=== PATIENT | male | born 1945 | race Hispanic/Latino ===

== ENCOUNTER 2017-09-21 18:24 | Inpatient (IN) | payer MEDICARE ==
[2017-09-21 18:57] LABS: #Basophils 0.1 thou/uL (0.0-0.2); #Eosinphils 0.2 thou/uL (0.0-0.7); #Lymphocytes 2.1 thou/uL (1.20-3.40); #Monocytes 0.7 thou/uL (0.11-0.59); #Neutrophils 6.3 thou/uL (1.40-6.50); %Basophils 0.6 % (0.0-1.0); %Eosinophils 1.7 % (0.0-10.0); %Lymphocytes 22.9 % (21.0-51.0); %Monocytes 7.7 % (0.0-10.0); %Neutrophils 67.2 % (42.0-75.0); Hemoglobin 13.2 g/dL (14.0-18.0); Mean Corpuscular HGB CONC 33.2 g/dL (32.0-36.0); Mean Corpuscular Hemoglobin 30.6 pg (27.0-31.0); Mean Corpuscular Volume 91.9 fl (80.0-94.0); Mean Platelet Volume 6.5 fL (7.4-10.4); Platelet Count 248 thou/uL (130-400); RBC Distribution Width 12.5 % (11.5-14.5); Red Blood Cell (RBC) Count 4.33 mill/uL (4.70-6.10); White Blood Cell (WBC) Count 9.4 thou/uL (4.8-10.8)
[2017-09-21 19:18] LABS: ALT (SGPT) 8 U/L (8-55); AST (SGOT) 14 U/L (5-34); Albumin 3.5 g/dL (3.4-4.8); Alkaline Phosphatase 71 U/L (40-150); Anion Gap 14 mmol/L (10-20); BUN (Urea Nitrogen) 18 mg/dL (8.4-25.7); Bilirubin, Total 0.4 mg/dL (0.2-1.2); Calc. Creatinine Clearance 0 mL/min (70-130); Calcium 9.3 mg/dL (7.8-10.44); Carbon Dioxide 21 mmol/L (23-31); Chloride 110 mmol/L (98-107); Estimated GFR-MDRD 56; Globulin 3.6 g/dL (2.4-3.5); Glucose 116 mg/dL (83-110); Protein, Total 7.1 g/dL (5.8-8.1); Sodium 141 mmol/L (136-145)
[2017-09-21 19:21] LABS: CKMB 3.2 ng/mL (0-6.6)
[2017-09-21 19:22] LABS: Troponin I 0.366 ng/mL (< 0.028)
[2017-09-21] MEDS ORDERED: Enoxaparin Sodium 80 MG/0.8 ML SYRINGE ONE (19:43)
--- NOTE | 2017-09-21 19:47 | RAD ---
CHEST ONE VIEW: 09/21/17 HISTORY: Chest pain. COMPARISON: None. FINDINGS: Moderate interstitial edema. Mild thickening of the right minor fissure. No pneumothorax or large eff usion. Cardiac silhouette appears within normal limits. No acute osseous abnormality. Moderate vascular calcifications in the transverse aorta. IMPRESSION: Moderate interstitial edema. POS: HOME
[2017-09-21 21:49] LABS: Troponin I 0.587 ng/mL (< 0.028)
[2017-09-21] MEDS ORDERED: Sodium Chloride 0.9% 1,000 ML IV SCH (22:11)
[2017-09-21] MEDS ORDERED: Ondansetron HCl/PF 4 MG/2 ML Vial IVP PRN (22:11)
[2017-09-21] MEDS ORDERED: Ondansetron ODT 4 MG TAB SL PRN (22:11)
[2017-09-21] MEDS ORDERED: Nitroglycerin 0.4 MG TAB (25 Tab Bottle) SL PRN (22:49)
[2017-09-22 00:53] LABS: Troponin I 0.762 ng/mL (< 0.028)
--- NOTE | 2017-09-22 01:00 | HP ---
DATE OF ADMISSION: 09/21/2017 PRIMARY CARE PHYSICIAN: Damian Covarrubias M.D. CHIEF COMPLAINT: Chest pain. HISTORY OF PRESENT ILLNESS: This is a 72-year-old gentleman with a history of hypertension, who pres ented to the emergency department with 2 days of on and off chest pain. The patient states that he h as been in his usual health. He last saw Dr. Covarrubias about 3-4 months ago for checkup and stated he w as doing well at that time. Last night while at rest, he developed substernal chest pain. He states about 6/10 in severity, resolved with going to bed and resting. He woke up in the morning, he felt weak. He tried to go outside to do some yard work, but started feeling weak and sweaty. He went ins [facility] to make himself a sandwich, after eating a sandwich, he threw up and developed more chest pain at that time. He stated again, he felt sweaty. He told his daughter. They called EMS. The patient s tates that his pain resolved after given some medicine by the ambulance and he has been pain free sin ce that time. PAST MEDICAL HISTORY: Hypertension. MEDICATIONS: Included atenolol 100 mg daily, lisinopril 20 mg daily. PAST SURGICAL HISTORY: None. HOSPITALIZATIONS: Once for pneumonia. PSYCHIATRIC HISTORY: None. 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 Lives at home by himself. He is independent. No alc ohol use. He quit smoking at 20 years of age. FAMILY HISTORY: Uncertain he has a brother with on hemodialysis, but uncertain of cardiac history. REVIEW OF SYSTEMS: As per the history of present illness. GENERAL: He denies any recent fevers, chills or recent illness. HEENT: No headache, visual or hearing changes. CARDIAC: As per the history of present illness. PULMONARY: Positive cough over the past few days, some better now. GASTROINTESTINAL: Positive nausea and vomiting for the past 2 days. No melena or hematochezia. No abdominal pain. GENITOURINARY: No dysuria or hematuria. NEUROLOGIC: No weakness, seizures, or syncope. PHYSICAL EXAMINATION: VITAL SIGNS: In the ER, temperature 99.2, pulse of 99-100, respirations 20, blood pressure 149/97, p ulse ox is 97% on room air. GENERAL: He is awake and alert, in no acute distress. Speech is clear. NECK: Supple, no JVD, adenopathy or bruits. CARDIOVASCULAR: Regular rate and rhythm with 2/6 systolic ejection murmur at the left sternal border . LUNGS: Clear to auscultation. No wheeze, rales or rhonchi. ABDOMEN: Obese, soft, nontender, nondistended. No hepatosplenomegaly. EXTREMITIES: No clubbing, cyanosis or edema, 2+ peripheral pulses bilaterally. NEUROLOGIC: Cranial nerves II-XII are grossly intact. LABORATORY DATA: White blood cell count 9400, hemoglobin and hematocrit 13.2 and 39.8, platelets of 248. Sodium 141, potassium 4.0, chloride 110, CO2 of 21, BUN and creatinine 18 and 1.26 with a GFR o f 56. Serum glucose is 116, calcium 9.3, albumin 3.5. Creatinine kinase is 98 with MB fraction of 3 .2. Troponin I number one 0.366, number two 0.587, number three is pending. BNP of 519. Chest x-ra y revealed moderate interstitial edema. EKG reveals inverted T waves in the lateral leads, ST depres lila in inferior and lateral leads. ASSESSMENT AND PLAN: 1. This is a 72-year-old gentleman with a history of hypertension, now with symptoms and signs of no n-ST elevation MT. The patient already received Lovenox and aspirin in emergency department, he is p ain free. At this time, I will consult Cardiology for further evaluation and the risk stratification . We will check echocardiogram to rule out cardiomyopathy as well. 2. Hypertension. We will continue his atenolol and lisinopril. 3. Nausea. We will start H2 reanna.
[2017-09-22 05:20] LABS: Hemoglobin 11.9 g/dL (14.0-18.0); Platelet Count 231 thou/uL (130-400)
[2017-09-22 05:48] LABS: Troponin I 1.065 ng/mL (< 0.028)
[2017-09-22] MEDS: Atenolol 50 MG TAB PO SCH (08:24)
[2017-09-22] MEDS: Lisinopril 20 MG TAB PO SCH (08:24)
[2017-09-22] MEDS: Famotidine 20 MG TAB PO SCH ×2 (08:24→22:22)
[2017-09-22] MEDS: Furosemide 20 MG TAB PO SCH (08:24)
[2017-09-22] MEDS ORDERED: Famotidine 40 MG/4 ML VIAL SLOW IVP SCH (09:00)
[2017-09-22] MEDS ORDERED: Enoxaparin Sodium 80 MG/0.8 ML SYRINGE SC SCH (09:00)
[2017-09-22] MEDS ORDERED: Aspirin 325 MG TAB PO SCH (09:00)
--- NOTE | 2017-09-22 11:28 | PRG ---
DATE OF SERVICE: 09/22/2017 SUBJECTIVE: The patient continues to be pain free. He had an uneventful night. He feels like he wa nts to go home, but his cardiac enzymes continued to trend up. Denies chest pain. Denies shortness of breath. Continues to have cough, but no shortness of breath. No nausea, vomiting or diaphoresis. OBJECTIVE: VITAL SIGNS: Temperature 98.8, pulse of 90, respirations 16, blood pressure 110/73, and pulse oximet ry is 95% on room air. GENERAL: He is awake and alert, in no acute distress. Speech is clear. NECK: Supple. No JVD, adenopathy or bruits. HEART: Regular rate and rhythm with 2/6 systolic ejection murmur. LUNGS: Clear anteriorly. ABDOMEN: Obese, soft, nontender, and nondistended. No hepatosplenomegaly. EXTREMITIES: With no edema. 2+ peripheral pulses bilaterally. NEUROLOGIC: Cranial nerves II-XII are intact. LABORATORY DATA AND IMAGING DATA: Hemoglobin and hematocrit 11.9 and 37.2. Troponin I is 0.587, 0.7 62, 1.065, GFR is 68. Chest x-ray from yesterday revealed interstitial edema, we will recheck one to day. ASSESSMENT AND PLAN: 1. This is a 72-year-old gentleman with a history of hypertension in the past, now with 2 episodes o f chest pain. His cardiac enzymes are ruling and admitted for non-ST elevation SC. Cardiology to se manjarrez. Echocardiogram pending. We will likely need further risk stratification. 2. Hypertension is stable. 3. Cough. We will recheck chest x-ray. He was given Lasix this morning due to his abnormal chest x -ray. We will continue to follow.
[2017-09-22 11:29] LABS: CKMB 3.8 ng/mL (0-6.6)
[2017-09-22 11:37] LABS: Troponin I 1.005 ng/mL (< 0.028)
--- NOTE | 2017-09-22 14:33 | RAD ---
AP VIEW CHEST: HISTORY: Cough. FINDINGS: AP view chest obtained on 09/22/17. Comparison is made to previous exam from 09/21/17. AP view chest demonstrates some calcification of the aorta. The lungs are well aerated. No evidence of active intrathoracic disease is seen. No evidence of effusions, pneumonia, or pneumothorax seen. IMPRESSION: Unremarkable AP view chest. POS: [facility]
[2017-09-22] MEDS ORDERED: Communication Order-Pharmacy FS SCH (20:30)
[2017-09-22] MEDS: Sodium Chloride 0.9% 1,000 ML IV SCH (22:20)
--- NOTE | 2017-09-23 05:08 | CON ---
DATE OF CONSULTATION: 09/22/2017 HISTORY OF PRESENT ILLNESS: Gonsalo Mcduffie is a pleasant 72-year-old white male who over the last 3 weeks has noted exertional chest pain. This would always occur with some form of the activity and never at rest. If he would stop and rest, this would resolve in 3-4 minutes. He then had an episode in the evening of 09/20 that occurred at rest. While he was sitting and watching TV, pain was more intense and lasted somewhat longer. On the morning of 09/21, he went outside to do some work and developed chest discomfort at that time along with diaphoresis. Ultimately, EMS was called and he was brought to the emergency room. He has had moderate elevation of his troponin I. He denies any chest discomfort since being in the hospital. PAST MEDICAL HISTORY: Hypertension. He denies any history of hypercholesterolemia, although an LDL in the past was 107. MEDICATIONS: Lisinopril/hydrochlorothiazide 20/25 q.a.m., atenolol 100 daily. ALLERGIES: None. 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 SOCIAL HISTORY: Smoked from age 12 to age 20, but none since. 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 He does not drink. FAMILY HISTORY: Negative for coronary artery disease. REVIEW OF SYSTEMS: A 12-point review of systems otherwise unremarkable. PHYSICAL EXAMINATION: VITAL SIGNS: Blood pressure 146/67, pulse of 66. HEENT: PERRL. NECK: Supple. CHEST: Clear. CARDIAC: S1 and S2 are normal, without any S3, S4 or murmurs. Carotid upstrokes normal, without bruits. ABDOMEN: Normal bowel sounds, without tenderness, organomegaly. EXTREMITIES: Revealed no clubbing, cyanosis or edema. NEUROLOGIC: Grossly intact. LABORATORY AND X-RAY FINDINGS: EKG revealed sinus tachycardia on arrival with nonspecific ST and T-wave changes. Repeat EKG again revealed nonspecific ST and T-wave changes. Hemoglobin 13.2, hematocrit 39.8, white count 9400, platelets 248,000. Troponin I is up to 1.065. CK-MB is normal. BNP 590.4. Sodium 141, potassium 4.0, chloride 110, carbon dioxide 21, BUN 18, creatinine 1.26. ALT and AST are normal. It is also of note that he has 2 elevated hemoglobin A1c's in the past of 6.5 and 6.7. IMPRESSION: 1. Nwq-RG-[id number] elevation myocardial infarction. 2. Acute coronary syndrome with increasing chest discomfort over the last 3 weeks. 3. Hypertension. 4. Hypercholesterolemia with LDL of 107 in the past. 5. Probable diabetes with 2 elevated hemoglobin A1c's. 6. Former smoker. PLAN: Hemoglobin A1c and fasting lipid profile will be repeated. It was recommended that he undergo cardiac catheterization. Discussed with the patient. Risks were discussed including , myocardial infarction, dye reaction, vascular injury, CVA, transfusion, limb loss, renal loss, etc. Risk of intervention with PTCA and stent placement were discussed including , myocardial infarction, emergent CABG, restenosis, stent thrombosis, vessel perforation, etc. He has no upcoming surgeries. He has never had any gastrointestinal bleeding or hemorrhagic stroke. Overall, it was recommended that a drug-eluting stent be placed if needed. He understands this and agrees to proceed. RONALD
[2017-09-23 05:37] LABS: #Basophils 0.1 thou/uL (0.0-0.2); #Eosinphils 0.3 thou/uL (0.0-0.7); #Lymphocytes 1.9 thou/uL (1.20-3.40); #Monocytes 0.7 thou/uL (0.11-0.59); #Neutrophils 4.1 thou/uL (1.40-6.50); %Basophils 0.8 % (0.0-1.0); %Eosinophils 3.6 % (0.0-10.0); %Lymphocytes 27.4 % (21.0-51.0); %Monocytes 9.4 % (0.0-10.0); %Neutrophils 58.9 % (42.0-75.0); Hemoglobin 11.8 g/dL (14.0-18.0); Mean Corpuscular HGB CONC 33.1 g/dL (32.0-36.0); Mean Corpuscular Hemoglobin 30.5 pg (27.0-31.0); Mean Corpuscular Volume 92.1 fl (80.0-94.0); Mean Platelet Volume 6.9 fL (7.4-10.4); Platelet Count 204 thou/uL (130-400); RBC Distribution Width 12.3 % (11.5-14.5); Red Blood Cell (RBC) Count 3.86 mill/uL (4.70-6.10); White Blood Cell (WBC) Count 6.9 thou/uL (4.8-10.8)
[2017-09-23 05:42] LABS: Hemoglobin A1c 5.9 % (4.0-6.0)
[2017-09-23] MEDS: Sodium Chloride 0.9% 1,000 ML IV SCH ×2 (05:51→19:15)
[2017-09-23] MEDS: Furosemide 20 MG TAB PO SCH (05:54)
[2017-09-23] MEDS: Lisinopril 20 MG TAB PO SCH (05:54)
[2017-09-23] MEDS: Atenolol 50 MG TAB PO SCH (05:54)
[2017-09-23] MEDS: Famotidine 20 MG TAB PO SCH (05:55)
[2017-09-23 06:11] LABS: ALT (SGPT) 8 U/L (8-55); AST (SGOT) 13 U/L (5-34); Albumin 3.2 g/dL (3.4-4.8); Alkaline Phosphatase 61 U/L (40-150); Anion Gap 11 mmol/L (10-20); BUN (Urea Nitrogen) 21 mg/dL (8.4-25.7); Bilirubin, Total 0.5 mg/dL (0.2-1.2); Calc. Creatinine Clearance 51 mL/min (70-130); Calcium 8.8 mg/dL (7.8-10.44); Carbon Dioxide 22 mmol/L (23-31); Cardiac Risk 4.5 (Less than 4.5); Chloride 109 mmol/L (98-107); Cholesterol 140 mg/dl (< 200 Desired); Estimated GFR-MDRD 53; Globulin 3.2 g/dL (2.4-3.5); Glucose 106 mg/dL (83-110); HDL Cholesterol 31 mg/dL (>60 Neg Risk); LDL Cholesterol, Calculated 81 mg/dL; Potassium 3.9 mmol/L (3.5-5.1); Protein, Total 6.4 g/dL (5.8-8.1); Sodium 138 mmol/L (136-145); Triglycerides 138 mg/dL (Less than 150)
--- NOTE | 2017-09-23 07:54 | PRG ---
DATE OF SERVICE: 09/23/2017 SUBJECTIVE: The patient remains chest pain free. Evidently, he has been having chest pain for the p ast 3 weeks. On Saturday prior to admission, he experienced a bout of chest pain with nausea, vomiting , diaphoresis. It resolved spontaneously after going to sleep. This recurred Saturday morning with nausea and vomiting again. His troponin levels were noted to be elevated. He is scheduled for a car diac catheterization today. OBJECTIVE: VITAL SIGNS: Temperature 98.7, pulse 69, respirations 20, blood pressure 116/60, pulse ox 95. HEART: Regular rate and rhythm. LUNGS: Clear. ABDOMEN: Soft. EXTREMITIES: With no edema. LABORATORY: White count 6.9, H&H 11 and 35, creatinine 1.31. Troponin 0.76, 1..065, 1.005, choleste rol 140, triglycerides 138, LDL 81. ASSESSMENT: 1. Ozl-FQ-[id number] elevation myocardial infarction. 2. Hypertension. 3. Tobacco history. PLAN: 1. Proceed with cardiac catheterization this a.m. 2. The patient remains chest pain free.
[2017-09-23] MEDS ORDERED: Heparin 10,000 UNITS/1 ML VIAL ONE (11:27)
[2017-09-23] MEDS ORDERED: Lidocaine 1% (PF) 30 ML VIAL ONE (11:27)
[2017-09-23] MEDS ORDERED: Fentanyl 100 MCG/2 ML VIAL ONE (12:40)
[2017-09-23] MEDS ORDERED: Midazolam HCl 2 mg/2 ml Vial ONE (12:41)
[2017-09-23] MEDS ORDERED: Fentanyl 250 MCG/5 ML VIAL ONE ×2 (13:24→17:11)
[2017-09-23] MEDS ORDERED: Vecuronium 10 MG VIAL ONE ×2 (13:24→15:17)
[2017-09-23] MEDS ORDERED: Norepinephrine 8 MG/0.9% NS 250 ML ONE (13:24)
[2017-09-23] MEDS ORDERED: Midazolam HCl 5 mg/5 ml Vial ONE (13:24)
[2017-09-23] MEDS ORDERED: Heparin 10,000 UNITS/1 ML VIAL 30,000 UNITS, Admixture Fee 1 EACH in Sodium Chloride 0.... IVPB SCH (13:30)
[2017-09-23] MEDS ORDERED: Albumin 5% 500 ML ONE (13:48)
[2017-09-23] MEDS ORDERED: CEFAZOLIN/Water 2 GM/20 ML SYRINGE ONE (14:06)
[2017-09-23] MEDS ORDERED: PROPOFOL 200 MG/20 ML VIAL ONE (15:17)
[2017-09-23] MEDS ORDERED: Heparin 30,000 units/30 ml VIAL ONE (15:17)
[2017-09-23] MEDS ORDERED: Sodium Bicarb 50 MEQ/50 ML VIAL ONE (15:17)
[2017-09-23] MEDS ORDERED: Magnesium 5 GM/10 ML VIAL ONE (15:17)
[2017-09-23] MEDS ORDERED: Heparin 5,000 UNITS/ML VIAL ONE (15:17)
[2017-09-23] MEDS ORDERED: Protamine Sulfate 250 MG/25 ML VIAL ONE (15:17)
[2017-09-23] MEDS ORDERED: Nitroglycerin 50 MG/250 ML BOT ONE (15:17)
[2017-09-23] MEDS ORDERED: Aminocaproic Acid 5 GM/20 ML VIAL ONE (15:17)
[2017-09-23] MEDS ORDERED: Cardioplegic Soln 1,000 ML BAG ONE (15:17)
[2017-09-23] MEDS ORDERED: Calcium Chloride 1 GM/10 ML Abboject SYRINGE ONE (15:17)
[2017-09-23] MEDS ORDERED: Papaverine 60 MG/2 ML VIAL ONE (15:17)
[2017-09-23] MEDS ORDERED: Thrombin 5000 UNITS/5 ML VIAL ONE (15:17)
[2017-09-23] MEDS ORDERED: Lidocaine 2% PF 100 mg/5 ml Syringe ONE (15:17)
[2017-09-23] MEDS ORDERED: Potassium Chloride 60 MEQ/30 ML VIAL ONE (15:17)
[2017-09-23] MEDS ORDERED: Lidocaine 1% PF 5 ML VIAL ONE (15:17)
[2017-09-23] MEDS ORDERED: PHENYLEPHRINE-NS 100 MCG/ML 10 ML SYRINGE ONE (15:17)
[2017-09-23] MEDS ORDERED: Iopamidol 370 76% 100 ML VIAL ONE (15:33)
[2017-09-23] MEDS ORDERED: Iopamidol 370 76% 50 ML VIAL FS ONE (15:33)
[2017-09-23] MEDS ORDERED: Bisacodyl 5 MG TAB PO PRN (18:13)
[2017-09-23] MEDS ORDERED: Mag-Al 1200 mg/1200 mg/30 ML UDCUP PO PRN (18:13)
[2017-09-23] MEDS ORDERED: Bisacodyl 10 MG SUPP PR PRN (18:13)
[2017-09-23] MEDS ORDERED: Acetaminophen 325 MG TAB PO PRN (18:13)
[2017-09-23] MEDS ORDERED: Hetastarch 6% 500 ML 500 ML IVPB PRN (18:13)
[2017-09-23] MEDS ORDERED: Morphine 4 MG/ML VIAL SLOW IVP PRN (18:13)
[2017-09-23] MEDS ORDERED: hydrALAZINE 20 MG/ML VIAL SLOW IVP PRN (18:13)
[2017-09-23] MEDS ORDERED: Promethazine HCl 25 MG/ML VIAL IM PRN (18:13)
[2017-09-23] MEDS ORDERED: Post-Op Insulin Drip Protocol IVPB ONE (18:13)
[2017-09-23] MEDS ORDERED: Fentanyl 100 MCG/2 ML VIAL SLOW IVP PRN ×2 (18:13)
[2017-09-23] MEDS ORDERED: niCARdipine HCl 25 MG in Sodium Chloride 0.9% 250 ML 240 ML IVPB PRN (18:13)
[2017-09-23] MEDS ORDERED: HYDROcodone/Acetaminophen 5/325 mg Tablet PO PRN (18:13)
[2017-09-23] MEDS ORDERED: Ondansetron HCl/PF 4 MG/2 ML Vial IVP PRN (18:13)
[2017-09-23] MEDS ORDERED: DOPamine 400 MG/D5W 250 ML 250 ML IVPB PRN (18:13)
[2017-09-23] MEDS ORDERED: Guaifenesin DM 100-10/5 ML UDCUP PO PRN (18:13)
[2017-09-23] MEDS ORDERED: Nitroglycerin 50 MG/250 ML BOT 250 ML IVPB PRN (18:13)
[2017-09-23] MEDS ORDERED: Phenylephrine 10 MG/NS 250 ML 250 ML IVPB PRN (18:13)
[2017-09-23] MEDS ORDERED: Dextrose 50% Abboject 50 ML SYRINGE SLOW IVP PRN (18:15)
[2017-09-23] MEDS ORDERED: Dextrose 5% in Water 1,000 ML IV PRN (18:15)
[2017-09-23 18:22] LABS: Actual Bicarbonate (HCO3a) 21.1 mEq/L (22-26); CO2 Tension 38.6 mmHg (35.0-45.0); Hemoglobin (Hb) 9.5 g/dL (14.0-18.0); O2 Tension (PaO2) 82.5 mmHg (80.0-100.0); pH, Arterial 7.36 (7.35-7.45)
[2017-09-23 18:23] LABS: Calcium, Ionized 1.2 mmol/L (1.12-1.30); Puncture Site ALINE
[2017-09-23 18:26] LABS: #Eosinphils 0.2 thou/uL (0.0-0.7); #Lymphocytes 1.4 thou/uL (1.20-3.40); #Monocytes 0.5 thou/uL (0.11-0.59); #Neutrophils 10.1 thou/uL (1.40-6.50); %Basophils 0.3 % (0.0-1.0); %Eosinophils 1.3 % (0.0-10.0); %Lymphocytes 11.6 % (21.0-51.0); %Monocytes 4.4 % (0.0-10.0); %Neutrophils 82.4 % (42.0-75.0); Hemoglobin 9.7 g/dL (14.0-18.0); Mean Corpuscular HGB CONC 32.8 g/dL (32.0-36.0); Mean Corpuscular Hemoglobin 30.4 pg (27.0-31.0); Mean Corpuscular Volume 92.6 fl (80.0-94.0); Mean Platelet Volume 6.6 fL (7.4-10.4); Platelet Count 168 thou/uL (130-400); RBC Distribution Width 12.3 % (11.5-14.5); White Blood Cell (WBC) Count 12.2 thou/uL (4.8-10.8)
[2017-09-23] MEDS ORDERED: Magnesium 2 GM/NS 0.9% 100 ML 2 GM in Premix Bag 1 BAG IVPB SCH (18:30)
[2017-09-23 18:32] LABS: INR-International Normal Ratio 1.4; PTT 33.3 SEC (22.9-36.1); Prothrombin Time 17.7 SEC (12.0-14.7)
[2017-09-23] MEDS: Ketorolac Tromethamine 30 MG/ML VIAL IVP SCH (18:35)
[2017-09-23] MEDS: Insulin Regular 300 UNITS/3 ML VIAL SC PRN ×2 (18:37→21:51)
[2017-09-23 18:43] LABS: Anion Gap 12 mmol/L (10-20); BUN (Urea Nitrogen) 19 mg/dL (8.4-25.7); Calc. Creatinine Clearance 56 mL/min (70-130); Carbon Dioxide 20 mmol/L (23-31); Chloride 112 mmol/L (98-107); Estimated GFR-MDRD 59; Glucose 140 mg/dL (83-110); Sodium 140 mmol/L (136-145)
--- NOTE | 2017-09-23 18:43 | OP ---
PREOPERATIVE DIAGNOSIS: Coronary artery disease, status post non-ST elevation myocardial infarction. PROCEDURE PERFORMED: Coronary artery bypass graft x5, good quality left internal mammary artery to a 1.5 mm left anterior descending, good quality saphenous vein graft to a 1.25 mm diagonal, 1.5 mm elina us, 1.5 mm obtuse marginal, and 3 mm right coronary artery. SURGEON: Daniel Dyer M.D. LAP WINDER: Jayce Everett M.D. TRANSFUSION: None. PROCEDURE IN DETAIL: After adequate anesthesia had been obtained, the patient was prepped and draped . Dr. Everett did an endovascular vein harvest of the left greater saphenous vein while I performed a median sternotomy, harvesting the left internal mammary artery. The right pleura was entered with th e sternal saw and the left was entered during mammary harvest. After heparinization, the mammary was divided distally and treated with papaverine, passed posterior to the thymus gland. Aorta and right atrium were cannulated and cardiopulmonary bypass instituted. Following inspection of vessels for g rafting, the aorta was cross-clamped and a liter of [place] cardioplegic solution was given. Distal anastomoses were then completed with 7-0 Prolene suture. After completion of the suture lines, the cross-clamp was removed and the partial occluding clamp placed, and 3 proximal anastomoses were perfo rmed on the aortic root and marked with rings. Partial occluding clamp was removed and the diagonal vein graft was anastomosed to the side of the ramus vein graft about 2 cm from the aortic root. Dist al anastomoses were all hemostatic following which the patient was weaned from cardiopulmonary bypass and decannulated. Aortic cannulation site was secured with a 4-0 Prolene suture in addition to the pursestring sutures. Mediastinal and bilateral drains were placed, following which the sternum was r eapproximated with #7 interrupted wire using vancomycin paste on the sternal edges, platelet rich blo od, and platelet-poor plasma. Subcutaneous tissue and skin were closed in layers.
[2017-09-23] MEDS: Potassium Chloride 20 MEQ/100 ML PREMIX BAG IVPB PRN (19:12)
[2017-09-23] MEDS: Lactated Ringer's 1,000 ML IV SCH (19:13)
[2017-09-23] MEDS: Atorvastatin Calcium 20 MG TAB PO SCH (19:34)
--- NOTE | 2017-09-23 20:07 | RAD ---
RADIOGRAPH CHEST 1 VIEW: Date: 09-23-17 Time: 6:09 p.m. HISTORY: 72-year-old male status post open heart surgery. COMPARISON: 09-22-17 at 11:48 a.m. FINDINGS: The current study is supine which would be insensitive for pneumothorax detection. New sternotomy wir es are noted. There are multiple new life support lines. Endotracheal tube with its tip overlying the lower thoracic trachea, right subclavian central vascular catheter with distal tip overlying right a trium, and several additional midline and paramedian catheters. New finding of subsegmental atelectas is at the right lung base with elevated right hemidiaphragm. Mild haziness of the central lungs. IMPRESSION: Very recently status post open heart surgery with multiple life support lines. MILLIE POS: [facility]
[2017-09-23] MEDS: CEFAZOLIN/Water 2 GM/20 ML SYRINGE SLOW IVP SCH (21:12)
[2017-09-24] MEDS: Ketorolac Tromethamine 30 MG/ML VIAL IVP SCH ×2 (00:24→05:25)
[2017-09-24 00:25] LABS: Hemoglobin 10.7 g/dL (14.0-18.0)
[2017-09-24 00:29] LABS: Potassium 4.3 mmol/L (3.5-5.1)
[2017-09-24 04:16] LABS: #Lymphocytes 0.8 thou/uL (1.20-3.40); #Monocytes 0.8 thou/uL (0.11-0.59); #Neutrophils 10.5 thou/uL (1.40-6.50); %Basophils 0.2 % (0.0-1.0); %Eosinophils 0.1 % (0.0-10.0); %Lymphocytes 6.9 % (21.0-51.0); %Monocytes 6.2 % (0.0-10.0); %Neutrophils 86.6 % (42.0-75.0); Hemoglobin 10.1 g/dL (14.0-18.0); Mean Corpuscular HGB CONC 33.3 g/dL (32.0-36.0); Mean Corpuscular Hemoglobin 30.8 pg (27.0-31.0); Mean Corpuscular Volume 92.7 fl (80.0-94.0); Mean Platelet Volume 6.7 fL (7.4-10.4); Platelet Count 173 thou/uL (130-400); RBC Distribution Width 12.3 % (11.5-14.5); Red Blood Cell (RBC) Count 3.29 mill/uL (4.70-6.10); White Blood Cell (WBC) Count 12.1 thou/uL (4.8-10.8)
[2017-09-24 04:46] LABS: Anion Gap 11 mmol/L (10-20); BUN (Urea Nitrogen) 25 mg/dL (8.4-25.7); Calc. Creatinine Clearance 48 mL/min (70-130); Calcium 8.2 mg/dL (7.8-10.44); Carbon Dioxide 23 mmol/L (23-31); Chloride 112 mmol/L (98-107); Estimated GFR-MDRD 50; Glucose 108 mg/dL (83-110); Sodium 142 mmol/L (136-145)
[2017-09-24] MEDS: Lactated Ringer's 1,000 ML IV SCH ×2 (05:24→11:48)
[2017-09-24] MEDS: Potassium Chloride 20 MEQ/100 ML PREMIX BAG IVPB PRN (05:25)
[2017-09-24] MEDS: CEFAZOLIN/Water 2 GM/20 ML SYRINGE SLOW IVP SCH ×2 (05:26→13:15)
--- NOTE | 2017-09-24 08:14 | RAD ---
PORTABLE AP CHEST RADIOGRAPH: Date: 09-24-17 History: Post open heart surgery. Comparison: 09-23-17 FINDINGS: Mediastinal drain and right subclavian central venous catheter remains unchanged in position. Endotra cheal tube has been removed. There is atelectasis present at each lung base with slight blunting of e ach lateral costophrenic angle which may represent tiny bilateral pleural effusions. There is elevati on of the right hemidiaphragm. There is improvement in pulmonary vascular congestion when compared to the prior exam. Post-surgical change related to CABG are again present. Cardiac silhouette is magnif ied by projection. No other interval change. IMPRESSION: 1. Improvement in pulmonary vascular congestion. 2. Bibasilar atelectasis with tiny bilateral pleural effusions. 3. Interval removal of the endotracheal tube. POS: [facility]
[2017-09-24] MEDS ORDERED: Famotidine/PF 20 mg/2ml Vial SLOW IVP SCH (09:00)
[2017-09-24] MEDS: HYDROcodone/Acetaminophen 5/325 mg Tablet PO PRN ×3 (09:33→21:27)
[2017-09-24] MEDS: Aspirin 325 MG TAB PO SCH (09:33)
--- NOTE | 2017-09-24 09:42 | PRG ---
DATE OF SERVICE: 09/24/2017 SUBJECTIVE: Postop day #1, status post coronary artery bypass grafting x5. The patient is resting c omfortably. All drips are off. He is in good spirits. OBJECTIVE: VITAL SIGNS: Temperature 99.6, pulse 63, blood pressure 109/50, respirations 12, pulse ox 95 on thania m air. HEART: Regular rate and rhythm. LUNGS: Clear. ABDOMEN: Soft. EXTREMITIES: No edema. LABORATORY: White count 12.1, H&H of 10 and 30. Electrolytes normal. Creatinine 1.39, BUN 25, bloo d sugar 108 and 107. Chest x-ray stable right basilar atelectasis. ASSESSMENT: 1. Postop day #1, status post bypass x5. 2. Non-ST elevation myocardial infarction. 3. Hypertension. 4. Tobacco history, quit 20 years ago. PLAN: 1. Routine post CABG care. 2. Cardiac rehab. 3. Will require lifetime statin treatment or therapy. 4. We will continue to follow.
[2017-09-24] MEDS ORDERED: Famotidine 20 MG TAB PO SCH (11:00)
--- NOTE | 2017-09-24 20:19 | EKG ---
Test Reason : AM Blood Pressure : / mmHG Vent. Rate : 082 BPM Atrial Rate : 082 BPM P-R Int : 126 ms QRS Dur : 096 ms QT Int : 422 ms P-R-T Axes : 070 058 091 degrees QTc Int : 493 ms Normal sinus rhythm Biatrial enlargement Nonspecific ST and T wave abnormality Prolonged QT Abnormal ECG When compared with ECG of 21-SEP-2017 18:28, (Unconfirmed) ST no longer depressed in Anterior leads Nonspecific T wave abnormality now evident in Anterior leads Confirmed by ABBY MCKAY ([id number]) on 09/24/2017 8:19:11 PM Referred By: Alfredo DIOR Confirmed By:ABBY MCKAY
--- NOTE | 2017-09-24 20:35 | EKG ---
Test Reason : POST CABG Blood Pressure : / mmHG Vent. Rate : 058 BPM Atrial Rate : 058 BPM P-R Int : 132 ms QRS Dur : 096 ms QT Int : 514 ms P-R-T Axes : 056 032 094 degrees QTc Int : 504 ms Sinus bradycardia Possible Left atrial enlargement Septal infarct , age undetermined Prolonged QT Abnormal ECG When compared with ECG of 22-SEP-2017 06:04, (Unconfirmed) Septal infarct is now Present Confirmed by MARLYS PEREIRA, DR. Manzanares ([id number]) on 09/24/2017 8:35:33 PM Referred By: AMA Confirmed By:DR. Leighton FRANKEL MD
[2017-09-24] MEDS: Atorvastatin Calcium 20 MG TAB PO SCH (21:28)
[2017-09-25] MEDS: HYDROcodone/Acetaminophen 5/325 mg Tablet PO PRN (05:02)
[2017-09-25 05:03] LABS: #Lymphocytes 1.5 thou/uL (1.20-3.40); %Basophils 0.3 % (0.0-1.0); %Eosinophils 0.4 % (0.0-10.0); %Lymphocytes 14.3 % (21.0-51.0); %Monocytes 9.3 % (0.0-10.0); %Neutrophils 75.6 % (42.0-75.0); Hemoglobin 9.6 g/dL (14.0-18.0); Mean Corpuscular HGB CONC 33.3 g/dL (32.0-36.0); Mean Corpuscular Hemoglobin 30.8 pg (27.0-31.0); Mean Corpuscular Volume 92.5 fl (80.0-94.0); Mean Platelet Volume 7.1 fL (7.4-10.4); Platelet Count 169 thou/uL (130-400); RBC Distribution Width 12.5 % (11.5-14.5); White Blood Cell (WBC) Count 10.5 thou/uL (4.8-10.8)
[2017-09-25 05:21] LABS: Anion Gap 8 mmol/L (10-20); BUN (Urea Nitrogen) 26 mg/dL (8.4-25.7); Calc. Creatinine Clearance 54 mL/min (70-130); Calcium 8.2 mg/dL (7.8-10.44); Carbon Dioxide 25 mmol/L (23-31); Chloride 109 mmol/L (98-107); Estimated GFR-MDRD 54; Glucose 148 mg/dL (83-110); Potassium 4.1 mmol/L (3.5-5.1); Sodium 138 mmol/L (136-145)
--- NOTE | 2017-09-25 08:35 | PRG ---
DATE OF SERVICE: 09/25/2017 SUBJECTIVE: The patient continues to do well on postop day #2 status post bypass grafting. He does complain of a chest discomfort. The chest x-ray was reviewed by Dr. Dyer and it appears that a ster notomy wire possibly broke or came loose. The patient is being taken back to the OR today to have th is wire replaced. This will be done under local. OBJECTIVE: VITAL SIGNS: Temperature 99.2, pulse 72, blood pressure 146/57. HEART: Regular rate and rhythm. LUNGS: Clear. ABDOMEN: Soft. LABORATORY: H&H 9.6 and 28.7. Sodium 138, potassium 4.1, creatinine 1.29, BUN 26, blood sugar 148. ASSESSMENT: 1. Postop day #2 status post bypass x5. 2. Sternotomy wire failure. 3. Tobacco history, quit 20 years ago. PLAN: 1. To return to the OR this morning for the sternotomy wire repair under local. 2. Possible to telemetry today. 3. Possible discharge Saturday.
[2017-09-25] MEDS: Famotidine 20 MG TAB PO SCH (08:46)
[2017-09-25] MEDS: Aspirin 325 MG TAB PO SCH (08:46)
--- NOTE | 2017-09-25 08:59 | RAD ---
AP CHEST: History: Status post open heart surgery. Date: 09-25-17 Comparison: 09-24-17 FINDINGS: AP chest demonstrates sternotomy wires seen. There is a right subclavian central line seen. Cardiomeg tanesha is noted. EKG leads seen over the chest. Some areas of patchy density seen in the right lung base compatible with areas of atelectasis or patchy pneumonia. The left lung is well aerated. IMPRESSION: Continued areas of patchy density in the right lung base compatible with atelectasis or pneumonia. Ra diographic appearance of the chest is stable. POS: [facility]
--- NOTE | 2017-09-25 09:44 | RAD ---
TWO VIEWS CHEST: Date: 09-25-17 Comparison: 09-24-17 History: Evaluate sternal wire abnormality. FINDINGS: The third from the top sternal wire is larger than the other sternal wires. On the lateral examinatio n it extends into the anterior clear space approximately 1.5 cm posterior to the posterior margin of the sternum, extending into the region of the superior mediastinum. No pneumothorax is seen. There is a right sided vascular catheter, distal tip overlying the region of the proximal right atriu m. Heart and mediastinal contours are stable. There is patchy increased linear density in the medial left lung base suggesting scar and/or volume loss. There is a patchy area of focal airspace disease i n the right lung base which could signify volume loss, infiltrate or aspiration. There is atheroscler otic calcification of the aortic arch. Blunting of the costophrenic angles is noted on the right with in increased density in the posterior costophrenic angle on the lateral view, evidence of a right ple ural effusion. IMPRESSION: 1. Third from the top sternal wire is extending into the mediastinum. 2. Bilateral pulmonary parenchymal opacity in the lung bases. Right pleural effusion. POS: [facility]
[2017-09-25] MEDS ORDERED: Lidocaine 1% w/Epinephrine 1:200K 30 ML VIAL ONE (10:30)
[2017-09-25] MEDS ORDERED: Morphine 10 MG/ML VIAL ONE (10:38)
--- NOTE | 2017-09-25 12:00 | OP ---
DATE OF PROCEDURE: 09/25/2017 PREOPERATIVE DIAGNOSIS: Loose upper sternal wire. POSTOPERATIVE DIAGNOSIS: Loose upper sternal wire. PROCEDURE: Tightening of the sternal wire. SURGEON: Dr. Daniel Dyer ANESTHESIA: General with local anesthetic with 1% lidocaine with epinephrine. PROCEDURE IN DETAIL: After adequate LMA anesthesia had been obtained, the patient was prepped and dr aped. The upper inch of the sternum was opened, sutures removed. A culture sent and the third marquez al wire identified, pulled up and tight and retwisted and flattened. The wound was then irrigated an d closed with 2 layers. The patient tolerated the procedure well.
[2017-09-25] MEDS ORDERED: Guaifenesin DM 100-10/5 ML UDCUP PO PRN (12:56)
[2017-09-25] MEDS ORDERED: diphenhydrAMINE 25 MG CAP PO PRN (12:56)
[2017-09-25] MEDS ORDERED: Mineral Oil ENEMA PR PRN (12:56)
[2017-09-25] MEDS ORDERED: Bisacodyl 5 MG TAB PO PRN (12:56)
[2017-09-25] MEDS ORDERED: Nitroglycerin 0.4 MG TAB (25 Tab Bottle) SL PRN (12:56)
[2017-09-25] MEDS ORDERED: Mag-Al 1200 mg/1200 mg/30 ML UDCUP PO PRN (12:56)
[2017-09-25] MEDS ORDERED: Bisacodyl 10 MG SUPP PR PRN (12:56)
[2017-09-25] MEDS ORDERED: Milk Of Magnesia 30 ML UDCUP PO PRN (12:56)
[2017-09-25] MEDS ORDERED: PROPOFOL 200 MG/20 ML VIAL ONE (15:41)
[2017-09-25] MEDS ORDERED: Ondansetron HCl/PF 4 MG/2 ML Vial ONE (15:41)
[2017-09-25] MEDS: Carvedilol 3.125 MG TAB PO SCH (17:16)
[2017-09-25] MEDS ORDERED: Sodium Chloride 0.9% 1,000 ML IV SCH (20:45)
[2017-09-25] MEDS: Atorvastatin Calcium 20 MG TAB PO SCH (21:50)
[2017-09-26 07:28] VITALS: BMI 28.6
--- NOTE | 2017-09-26 08:44 | PRG ---
DATE OF SERVICE: 09/26/2017 SUBJECTIVE: The patient is feeling much better this morning. He is awake, alert, very pleasant, pos itive. His chest discomfort has completely resolved following the surgery yesterday. His sternotomy wire had to be replaced yesterday and the patient underwent the procedure without any difficulty. Stacia manjarrez is much happier today. OBJECTIVE: VITAL SIGNS: Temperature 98.8, pulse 84, respirations 16, pulse ox 97, blood pressure 130/74. HEART: Regular rate and rhythm. LUNGS: Clear. ABDOMEN: Soft. ASSESSMENT: 1. Postop day #1, status post sternotomy wire replacement. 2. Postop day #3 status post bypass x5. 3. Tobacco history. 4. Sdp-EY-[id number] elevation myocardial infarction. 5. Hypertension. PLAN: 1. The patient is doing well. Continue cardiac rehabilitation. 2. Hopefully can discharge home tomorrow.
[2017-09-26] MEDS ORDERED: Loratadine/Pseudoephedrine 10/240 mg Tablet PO ONE (08:45)
[2017-09-26] MEDS: Aspirin 325 mg Enteric Coated Tablet PO SCH (09:09)
[2017-09-26] MEDS: Carvedilol 3.125 MG TAB PO SCH ×2 (09:09→17:36)
[2017-09-26] MEDS: Famotidine 20 MG TAB PO SCH (09:09)
[2017-09-26] MEDS: Benzonatate 100 MG CAP PO SCH ×3 (09:09→21:44)
[2017-09-26] MEDS: Potassium Chloride 10 MEQ TAB PO SCH (09:09)
[2017-09-26] MEDS: Furosemide 40 MG TAB PO SCH (09:09)
[2017-09-26] MEDS: Atorvastatin Calcium 20 MG TAB PO SCH (21:44)
--- NOTE | 2017-09-27 07:48 | DIS ---
HOSPITAL COURSE: This is a 72-year-old gentleman who presented with a non-STEMI brought to the floating [facility] supervisor on 09/23/2017 where he was found to have 3-vessel coronary disease. He was taken to the operatin g room that day where he underwent 5-vessel bypass grafting to the LAD, right diagonal, ramus, and OM . Postoperative course was eventful only in that he was noted to have 1 sternal wire in the manubriu m that was not securely tightened and he was taken to the operating room to have this wire pulled up and tightened on 09/25/2017. He will be discharged on 09/27/2017, doing well on atorvastatin 20 a da y, Coreg 3.125 b.i.d., lisinopril 5 daily, aspirin 1 a day, tramadol as needed for back pain and Clar itin-D as needed for cough due to sinus congestion. Discharge and follow up instructions have been tonia rubin.
--- NOTE | 2017-09-27 08:25 | PRG ---
DATE OF SERVICE: 09/27/2017 SUBJECTIVE: The patient is being discharged today by Dr. Dyer. The patient is doing well. Active, ambulatory. No complaints of chest pain, nausea or vomiting. OBJECTIVE: VITAL SIGNS: Temperature 99.3, pulse 87, respirations 18, pulse ox 93 on room air, blood pressure 12 3/61. GENERAL: In no acute distress. HEENT: Clear. HEART: Regular rate and rhythm. LUNGS: Clear. ABDOMEN: Soft. EXTREMITIES: No edema. LABORATORY: Electrolytes normal. Creatinine 1.29, BUN 26, GFR 54, blood sugar 108, 107 and 148. Wh ite count 10.5, H&H 9.6 and 28.7. ASSESSMENT: 1. Postop day #2 status post sternotomy wire replacement. 2. Postop day 4, status post bypass x5. 3. Tobacco history. 4. Foi-TQ-rypeosr elevation myocardial infarction. 5. Hypertension. PLAN: Discharged by Dr. Dyer. DISCHARGE MEDICATIONS: Discharge prescriptions given were lisinopril 5 daily, Lipitor 20 mg daily, C oreg 3.125 p.o. b.i.d., tramadol 50 q.4h. p.r.n., Claritin-D p.o. daily p.r.n. PLAN: The patient is to be discharged and he will follow up with me in 1 week and we will review his medications.
[2017-09-27] MEDS ORDERED: Lisinopril 2.5 MG TAB PO SCH (09:00)
[2017-09-27] MEDS: Aspirin 325 mg Enteric Coated Tablet PO SCH (09:55)
[2017-09-27] MEDS: Carvedilol 3.125 MG TAB PO SCH (09:55)
[2017-09-27] MEDS: Benzonatate 100 MG CAP PO SCH (09:55)
[2017-09-27] MEDS: Famotidine 20 MG TAB PO SCH (09:56)
[2017-09-27] MEDS: Furosemide 40 MG TAB PO SCH (09:56)
[2017-09-27] MEDS: Potassium Chloride 10 MEQ TAB PO SCH (09:56)
[2017-09-27 09:58] VITALS: TEMP 99.2
[2017-09-27 14:48] VITALS: BP 136/68
[2017-10-01 18:17] LABS: CO2 Tension 33.8 mmHg (35.0-45.0); O2 Tension (PaO2) 129.1 mmHg (80.0-100.0); pH, Arterial 7.42 (7.35-7.45)
[2017-10-01 18:18] LABS: Actual Bicarbonate (HCO3a) 21.7 mEq/L (22-26); Analyzer IN Cardio OR; Base Excess (BEa) -2.1 mEq/L (0 (+/-) 2.5); Calcium, Ionized 1.2 mmol/L (1.12-1.30); Hematocrit-ABG 34.1 % (42.0-52.0); Hemoglobin (Hb) 11.2 g/dL (14.0-18.0)
[2017-10-01 18:19] LABS: Puncture Site ALINE
[2017-10-01 18:21] LABS: Actual Bicarbonate (HCO3a) 22.8 mEq/L (22-26); Base Excess (BEa) -2.2 mEq/L (0 (+/-) 2.5); CO2 Tension 39.7 mmHg (35.0-45.0); O2 Tension (PaO2) 355.3 mmHg (80.0-100.0); pH, Arterial 7.38 (7.35-7.45)
[2017-10-01 18:22] LABS: Analyzer IN Cardio OR; Hematocrit-ABG 19.6 % (42.0-52.0); Hemoglobin (Hb) 6.8 g/dL (14.0-18.0); Puncture Site ALINE
[2017-10-01 18:23] LABS: Actual Bicarbonate (HCO3v) 24 mEq/L (22-26); Base Excess -1.6 mEq/L (0 (+/- 2.5)); Calcium, Ionized 1.02 mmol/L (1.16-1.32); Chloride (ABG LAB) 102 mmol/L (98-106); Hematocrit-VBG 20.2 % (37-51); Hemoglobin (Hb) 7.5 g/dL (12.6-17.4); Potassium - ABG Lab 3.9 mmol/L (3.70-5.30); Sodium 138.8 mmol/L (133-146); pH (venous) 7.35 (7.35-7.45)
[2017-10-02 11:31] LABS: Analyzer IN Cardio OR; Base Excess (BEa) -3.6 mEq/L (0 (+/-) 2.5); CO2 Tension 42.2 mmHg (35.0-45.0); Calcium, Ionized 1.2 mmol/L (1.12-1.30); Hematocrit-ABG 22.8 % (42.0-52.0); Hemoglobin (Hb) 7.6 g/dL (14.0-18.0); O2 Tension (PaO2) 218.1 mmHg (80.0-100.0); Puncture Site ALINE; pH, Arterial 7.33 (7.35-7.45)
--- NOTE | 2017-10-13 00:55 | EKG ---
Test Reason : CP Blood Pressure : / mmHG Vent. Rate : 113 BPM Atrial Rate : 113 BPM P-R Int : 124 ms QRS Dur : 082 ms QT Int : 354 ms P-R-T Axes : 069 013 092 degrees QTc Int : 485 ms Sinus tachycardia Possible Left atrial enlargement Left ventricular hypertrophy with repolarization abnormality Abnormal ECG Confirmed by JOHNNY MONDRAGON ([id number]), fan mail editor CIELO SANDHU ([id number]) on 10/13/2017 12:55:06 AM Referred By: Confirmed By:JOHNNY MONDRAGON
== END 2017-09-27 11:23 | disposition home or self-care (01) | DRG 234 ==
LOC: ERS 18:24 → 2NO 21:58 → CCU 09-23 13:27 → SURG A 09-25 09:36 → 2NO 09-25 11:49
PROVIDERS: ADMIT Family Medicine; ATTEND Family Medicine
PROC: 02100Z9 Bypass Coronary Artery, One Artery from Left Internal Mammary, Open Approach (ICD-10-PCS; principal; 2017-09-23)
PROC: 021309W Bypass Coronary Artery, Four or More Arteries from Aorta with Autologous Venous Tissue, Open Approach (ICD-10-PCS; 2017-09-23)
PROC: 06BQ0ZZ Excision of Left Saphenous Vein, Open Approach (ICD-10-PCS; 2017-09-23)
PROC: 5A1221Z Performance of Cardiac Output, Continuous (ICD-10-PCS; 2017-09-23)
PROC: 4A023N7 Measurement of Cardiac Sampling and Pressure, Left Heart, Percutaneous Approach (ICD-10-PCS; 2017-09-23)
PROC: B2111ZZ Fluoroscopy of Multiple Coronary Arteries using Low Osmolar Contrast (ICD-10-PCS; 2017-09-23)
PROC: B2151ZZ Fluoroscopy of Left Heart using Low Osmolar Contrast (ICD-10-PCS; 2017-09-23)
PROC: 0PW Upper Bones, Revision (ICD-10-PCS; 2017-09-25)
DX: I21.4 Non-ST elevation (NSTEMI) myocardial infarction (principal); I34.0 Nonrheumatic mitral (valve) insufficiency; T85.628A Displacement of other specified internal prosthetic devices, implants and grafts, initial encounter; E78.00 Pure hypercholesterolemia, unspecified; I10 Essential (primary) hypertension; I25.10 Atherosclerotic heart disease of native coronary artery without angina pectoris; R09.81 Nasal congestion; Z87.01 Personal history of pneumonia (recurrent); Z87.891 Personal history of nicotine dependence; Z89.021 Acquired absence of right finger(s); I24.9 Acute ischemic heart disease, unspecified; I51.9 Heart disease, unspecified
CPT/HCPCS: 36415; 36416; 36430; 71045; 71046; 80048; 80053; 80061; 82553; 82565; 82805; 83036; 83880; 84484; 85014; 85018; 85025; 85049; 85347; 85610; 85730; 86850; 86900; 86901; 87070; 87076; 87205; 93005; 93010; 93306; 93458; 93798; 94002; 94150; 96372; 99152; 99153; A4216; C1769; J1644; J1650; J1815; J1885; J2001; J2250; J2270; J2405; J2440; J2704; J2720; J3010; J3370; J3475; J3480; J7050; P9016; P9045; S0017

== ENCOUNTER 2018-06-11 12:13 | Outpatient (CLI) | payer MEDICARE ==
[~2018-06-11 12:13] MED LIST: Iopamidol 370 76% 100 ML VIAL ONE
--- NOTE | 2018-06-11 15:46 | CT ---
CT ARTERIOGRAM NECK WITH IV CONTRAST AND 3D MIP IMAGING: Date: 06/11/18 HISTORY: Vascular disease. Stenosis. Abnormal sonogram. FINDINGS: Normal branching of the great vessels at the aortic arch. Prominent arterial calcification. Complete or near complete stenosis of the left subclavian artery proximal to the vertebral artery james gin. Contrast is seen within the more distal subclavian artery. Good contrast is seen throughout each vertebral artery. At the right carotid bifurcation, there is prominent calcification. Greater than 80% stenosis within the proximal right ICA. On the left, prominent calcification at the arterial bifurcation. Approximately 70% stenosis within t he proximal ICA. Intracranially, there is prominent calcification of each carotid siphon. IMPRESSION: 1. Prominent atherosclerosis. High grade stenosis involving each proximal internal carotid artery, r ight worse than left. 2. Complete or near complete stenosis involving the left subclavian artery, proximal to the vertebra l artery origin. Subclavian steal phenomenon is a possibility with this appearance. Please correlate with symptoms and with direction of vertebral artery flow on sonography or arteriography. POS: [facility]
== END 2018-06-11 12:14 | disposition home or self-care (01) ==
LOC: BICCT 12:13
PROVIDERS: ATTEND Thoracic Surgery (Cardiothoracic Vascular Surgery)
DX: I65.23 Occlusion and stenosis of bilateral carotid arteries (principal); I70.0 Atherosclerosis of aorta; I70.8 Atherosclerosis of other arteries
CPT/HCPCS: 70498; 82565

== ENCOUNTER 2018-07-16 16:25 | Outpatient (CLI) | payer MEDICARE ==
[2018-07-16 17:11] LABS: #Basophils 0.1 thou/uL (0.0-0.2); #Eosinphils 0.6 thou/uL (0.0-0.7); #Lymphocytes 2.9 thou/uL (1.20-3.40); #Monocytes 0.8 thou/uL (0.11-0.59); #Neutrophils 5.8 thou/uL (1.40-6.50); %Basophils 0.7 % (0.0-1.0); %Eosinophils 6.3 % (0.0-10.0); %Lymphocytes 28.3 % (21.0-51.0); %Monocytes 7.6 % (0.0-10.0); %Neutrophils 57.1 % (42.0-75.0); Hemoglobin 10.9 g/dL (14.0-18.0); Mean Corpuscular HGB CONC 32.1 g/dL (32.0-36.0); Mean Corpuscular Hemoglobin 26.5 pg (27.0-31.0); Mean Corpuscular Volume 82.6 fL (78.0-98.0); Platelet Count 376 thou/uL (130-400); RBC Distribution Width 13.7 % (11.5-14.5); Red Blood Cell (RBC) Count 4.12 mill/uL (4.70-6.10); White Blood Cell (WBC) Count 10.1 thou/uL (4.8-10.8)
[2018-07-16 17:43] LABS: ALT (SGPT) 10 U/L (8-55); AST (SGOT) 14 U/L (5-34); Albumin 3.6 g/dL (3.4-4.8); Alkaline Phosphatase 104 U/L (40-150); Anion Gap 13 mmol/L (10-20); BUN (Urea Nitrogen) 16 mg/dL (8.4-25.7); Bilirubin, Total 0.5 mg/dL (0.2-1.2); Calc. Creatinine Clearance 0 mL/min (70-130); Calcium 9.4 mg/dL (7.8-10.44); Carbon Dioxide 24 mmol/L (23-31); Chloride 105 mmol/L (98-107); Estimated GFR-MDRD 53; Globulin 3.9 g/dL (2.4-3.5); Glucose 127 mg/dL (83-110); Potassium 4.2 mmol/L (3.5-5.1); Protein, Total 7.5 g/dL (5.8-8.1); Sodium 138 mmol/L (136-145)
--- NOTE | 2018-07-16 19:36 | RAD ---
CHEST TWO VIEWS: 07/16/2018 PROVIDED CLINICAL HISTORY: Preop. COMPARISON: 09/25/2017 FINDINGS: The cardiac and mediastinal silhouette is within normal limits. Median sternotomy changes are seen. Vascular calcification involves the aortic arch. No focal consolidation, pleural fluid, or pneumoth orax apparent. Degenerative changes involve the thoracic spine. IMPRESSION: No evidence for an acute cardiopulmonary process. POS: [facility]
--- NOTE | 2018-07-17 17:00 | EKG ---
Test Reason : Blood Pressure : / mmHG Vent. Rate : 079 BPM Atrial Rate : 079 BPM P-R Int : 126 ms QRS Dur : 088 ms QT Int : 400 ms P-R-T Axes : 066 062 087 degrees QTc Int : 458 ms Normal sinus rhythm Nonspecific ST abnormality Abnormal ECG When compared with ECG of 23-SEP-2017 18:31, Criteria for Septal infarct are no longer Present ST now depressed in Inferior leads Confirmed by DR. Joe CLARK ([id number]) on 07/17/2018 4:59:44 PM Referred By: WOODY Confirmed By:DR. Joe CLARK
== END 2018-07-16 16:26 | disposition home or self-care (01) ==
LOC: LABBT 16:25
PROVIDERS: ATTEND Internal Medicine Cardiovascular Disease
DX: Z01.818 Encounter for other preprocedural examination (principal); I77.1 Stricture of artery
CPT/HCPCS: 71046; 80053; 85025; 93005; 93010

== ENCOUNTER → 2018-07-24 | Day surgery (SDC) | payer MEDICARE ==
[2018-07-16 16:44] VITALS: BMI 28.1
[~2018-07-24] MED LIST changes: +Fentanyl 100 MCG/2 ML VIAL ONE; +Heparin 10,000 UNITS/1 ML VIAL ONE; +Iopamidol 370 76% 50 ML VIAL FS ONE; +Lidocaine 1% (PF) 30 ML VIAL ONE; +Midazolam HCl 2 mg/2 ml Vial ONE; +Protamine Sulfate 50 MG/5 ML VIAL ONE
== END ==
LOC: SDC 05:49
PROVIDERS: ATTEND Internal Medicine Cardiovascular Disease
PROC: 4A023N7 Measurement of Cardiac Sampling and Pressure, Left Heart, Percutaneous Approach (ICD-10-PCS; principal; 2018-07-24)
PROC: B2111ZZ Fluoroscopy of Multiple Coronary Arteries using Low Osmolar Contrast (ICD-10-PCS; 2018-07-24)
PROC: B2181ZZ Fluoroscopy of Left Internal Mammary Bypass Graft using Low Osmolar Contrast (ICD-10-PCS; 2018-07-24)
PROC: B2131ZZ Fluoroscopy of Multiple Coronary Artery Bypass Grafts using Low Osmolar Contrast (ICD-10-PCS; 2018-07-24)
DX: I25.10 Atherosclerotic heart disease of native coronary artery without angina pectoris (principal); I25.82 Chronic total occlusion of coronary artery; I25.5 Ischemic cardiomyopathy; I70.8 Atherosclerosis of other arteries; I65.23 Occlusion and stenosis of bilateral carotid arteries; E78.00 Pure hypercholesterolemia, unspecified; I10 Essential (primary) hypertension; E78.5 Hyperlipidemia, unspecified; R73.9 Hyperglycemia, unspecified; Z87.891 Personal history of nicotine dependence; Z79.82 Long term (current) use of aspirin; Z79.899 Other long term (current) drug therapy; Z95.1 Presence of aortocoronary bypass graft
CPT/HCPCS: 85347; 93459; C1769; 99152; J1644; J2001; J2250; J2720; J3010

== ENCOUNTER 2018-08-01 08:39 | Inpatient (IN) | payer MEDICARE ==
[2018-08-01] MEDS ORDERED: Bupivacaine HCl 0.5%/Epinephrine 1:200,000/PF 30 ml Vial ONE (09:20)
[2018-08-01] MEDS ORDERED: CEFAZOLIN 2 GM/50 ML BAG ONE (09:20)
[2018-08-01] MEDS ORDERED: Protamine Sulfate 50 MG/5 ML VIAL ONE (09:20)
[2018-08-01] MEDS ORDERED: Heparin 5,000 UNITS/ML VIAL ONE (09:20)
[2018-08-01] MEDS ORDERED: Famotidine/PF 20 mg/2ml Vial ONE (10:35)
[2018-08-01] MEDS ORDERED: Nitroglycerin 50 MG/250 ML BOT 0 ML ONE (10:35)
[2018-08-01] MEDS ORDERED: Fentanyl 100 MCG/2 ML VIAL ONE (10:35)
[2018-08-01] MEDS ORDERED: Phenylephrine HCL 10 MG/ML VIAL ONE (10:47)
[2018-08-01] MEDS ORDERED: Promethazine HCl 25 MG/ML VIAL IM PRN (11:57)
[2018-08-01] MEDS ORDERED: Promethazine HCl 25 MG/ML VIAL SLOW IVP PRN (11:57)
[2018-08-01] MEDS ORDERED: Morphine Sulfate 2 MG/ML SYRINGE SLOW IVP PRN (11:57)
[2018-08-01] MEDS ORDERED: Rocuronium Bromide 10 MG/ML (10ML VIAL) ONE (12:13)
[2018-08-01] MEDS ORDERED: Heparin 10,000 UNITS/ 10 ML VIAL ONE (12:13)
[2018-08-01] MEDS ORDERED: Ondansetron PF 4 MG/2 ML Vial ONE (12:13)
[2018-08-01] MEDS ORDERED: Glycopyrrolate 0.2 MG/ML 5 ML SYRINGE ONE (12:13)
[2018-08-01] MEDS ORDERED: Dexamethasone 20 MG/5 ML VIAL ONE (12:13)
[2018-08-01] MEDS ORDERED: Lidocaine 1% PF 5 ML VIAL ONE (12:13)
[2018-08-01] MEDS ORDERED: PROPOFOL 200 MG/20 ML VIAL ONE (12:13)
[2018-08-01] MEDS ORDERED: hydrALAZINE 20 MG/ML VIAL ONE (12:58)
[2018-08-01] MEDS ORDERED: Acetaminophen 325 MG TAB PO PRN (16:19)
[2018-08-01] MEDS ORDERED: Ondansetron PF 4 MG/2 ML Vial IVP PRN (16:19)
[2018-08-01] MEDS ORDERED: HYDROcodone/Acetaminophen 5/325 mg Tablet PO PRN ×2 (16:19)
[2018-08-01] MEDS ORDERED: Phenylephrine 10 MG/NS 250 ML 250 ML IVPB PRN (16:19)
[2018-08-01] MEDS ORDERED: Fentanyl 100 MCG/2 ML VIAL SLOW IVP PRN ×2 (16:19)
[2018-08-01] MEDS ORDERED: Sodium Chloride 0.9% 1,000 ML IV SCH (16:19)
[2018-08-01] MEDS ORDERED: Nitroglycerin 50 MG/250 ML BOT 250 ML IVPB PRN (16:19)
[2018-08-01] MEDS: Carvedilol 3.125 MG TAB PO SCH (16:40)
[2018-08-01] MEDS: CEFAZOLIN 2 GM/50 ML BAG IVPB SCH (16:40)
[2018-08-01 17:06] VITALS: BMI 30.5
[2018-08-02] MEDS: CEFAZOLIN 2 GM/50 ML BAG IVPB SCH ×2 (01:09→09:08)
[2018-08-02] MEDS ORDERED: Atorvastatin Calcium 20 MG TAB PO SCH (09:00)
[2018-08-02] MEDS ORDERED: Aspirin Chewable 81 MG TAB PO SCH (09:00)
[2018-08-02] MEDS ORDERED: Losartan 25 MG TAB PO SCH (09:00)
[2018-08-02] MEDS: Carvedilol 3.125 MG TAB PO SCH (09:08)
--- NOTE | 2018-08-02 12:26 | DIS ---
DATE OF ADMISSION: 08/01/2018 DATE OF DISCHARGE: 08/02/2018 PROCEDURE PERFORMED: Right carotid endarterectomy. PRINCIPAL DIAGNOSIS: Right carotid stenosis. HISTORY OF PRESENT ILLNESS AND HOSPITAL COURSE: The patient is a 73-year-old man with an asymptomatic right carotid stenosis, who was admitted electively for endarterectomy. He had an eventful postoperative stay overnight in the intensive care unit. Today, on postoperative day 1, his blood pressure has been under good control. His tongue is midline. His voice is normal and he is breathing and swallowing without difficulty. He has some minimal bruising and swelling associated with his wound, which remains soft. He is able to move all extremities at baseline. He is being discharged home now to resume his home medications that include daily aspirin, beta blockers, and statin. Job ID: [id number]
[2018-08-02 12:44] VITALS: TEMP 98.8
--- NOTE | 2018-08-04 09:27 | OP ---
DATE OF PROCEDURE: 08/01/2018 PREOPERATIVE DIAGNOSIS: Critical right internal carotid stenosis. POSTOPERATIVE DIAGNOSIS: Critical right internal carotid stenosis. PROCEDURE PERFORMED: Right carotid endarterectomy with bovine patch angioplasty. ANESTHESIA: General. ESTIMATED BLOOD LOSS: Less than 100. DESCRIPTION OF PROCEDURE: After adequate anesthesia had been obtained, the patient was prepped and draped. Incision was made in the right neck after ultrasound had been used to guide the incision. Platysma was divided and the common internal and external carotid arteries were isolated. The bifurcation was lower in the neck than anticipated. Following 7500 units of heparin with a good ACT level, vessels were clamped and arteriotomy performed. There was dense calcification and a tight lumen in the internal carotid artery. A 10-Bel[place]ian shunt was then placed. Following which, there was noted to be mild to moderate backbleeding from the shunt. Endarterectomy was performed. The calcified plaque was densely adherent to the posterior wall and dissection was rather tedious, but ultimately, the plaque was removed. The area was thoroughly irrigated on several occasions and loose debris was meticulously removed. Following this, a bovine patch was used to secure the arteriotomy with a running 6-0 Prolene suture, removing the shunt prior to completing the suture line and backflushing and forward flushing vessels. Protamine was given to partially reverse the heparin and after obtaining good hemostasis, the wound was irrigated and closed in layers. The patient is to be taken to the recovery room in guarded condition. Job ID: [id number]
== END 2018-08-02 12:05 | disposition home or self-care (01) | DRG 38 ==
LOC: SURG A 08:39 → CCU 15:53
PROVIDERS: ADMIT Thoracic Surgery (Cardiothoracic Vascular Surgery); ATTEND Thoracic Surgery (Cardiothoracic Vascular Surgery)
PROC: 03CK0ZZ Extirpation of Matter from Right Internal Carotid Artery, Open Approach (ICD-10-PCS; principal; 2018-08-01)
PROC: 03UK0JZ Supplement Right Internal Carotid Artery with Synthetic Substitute, Open Approach (ICD-10-PCS; 2018-08-01)
DX: I65.21 Occlusion and stenosis of right carotid artery (principal); I20.0 Unstable angina; Z95.1 Presence of aortocoronary bypass graft; Z79.82 Long term (current) use of aspirin; E78.2 Mixed hyperlipidemia; Z87.891 Personal history of nicotine dependence
CPT/HCPCS: J0131; J0360; J0670; J1100; J1642; J1644; J2001; J2370; J2405; J2704; J2720; J3010; J3490; S0028

== ENCOUNTER 2019-11-10 14:23 | Inpatient (IN) | payer MEDICARE ==
[~2019-11-10 14:23] MED LIST changes: -Fentanyl 100 MCG/2 ML VIAL ONE; -Heparin 10,000 UNITS/1 ML VIAL ONE; -Iopamidol 370 76% 100 ML VIAL ONE; +Iopamidol-370 76% 500 ML 1 ML ONE; -Lidocaine 1% (PF) 30 ML VIAL ONE; -Midazolam HCl 2 mg/2 ml Vial ONE; -Protamine Sulfate 50 MG/5 ML VIAL ONE
[2019-11-10 15:14] LABS: #Lymphocytes 2.6 thou/uL (1.20-3.40); #Monocytes 0.6 thou/uL (0.11-0.59); #Neutrophils 6.2 thou/uL (1.40-6.50); %Basophils 0.1 % (0.0-1.0); %Eosinophils 0.5 % (0.0-10.0); %Lymphocytes 27.6 % (21.0-51.0); %Monocytes 6.6 % (0.0-10.0); %Neutrophils 65.2 % (42.0-75.0); Hemoglobin 6.9 g/dL (14.0-18.0); Mean Corpuscular HGB CONC 27.7 g/dL (32.0-36.0); Mean Corpuscular Hemoglobin 18.9 pg (27.0-31.0); Mean Corpuscular Volume 68.3 fL (78.0-98.0); Mean Platelet Volume 8.1 fL (7.4-10.4); Platelet Count 473 thou/uL (130-400); RBC Distribution Width 17.7 % (11.5-14.5); Red Blood Cell (RBC) Count 3.63 mill/uL (4.70-6.10); White Blood Cell (WBC) Count 9.6 thou/uL (4.8-10.8)
[2019-11-10 15:33] LABS: ALT (SGPT) 8 U/L (8-55); AST (SGOT) 13 U/L (5-34); Albumin 2.5 g/dL (3.4-4.8); Alkaline Phosphatase 89 U/L (40-110); Anion Gap 15 mmol/L (10-20); BUN (Urea Nitrogen) 13 mg/dL (8.4-25.7); Bilirubin, Total 0.5 mg/dL (0.2-1.2); Calc. Creatinine Clearance 0 mL/min (70-130); Calcium 8.1 mg/dL (7.8-10.44); Carbon Dioxide 21 mmol/L (23-31); Chloride 103 mmol/L (98-107); Estimated GFR-MDRD 50; Globulin 4.8 g/dL (2.4-3.5); Glucose 137 mg/dL (83-110); Lipase 38 U/L (8-78); Protein, Total 7.3 g/dL (5.8-8.1); Sodium 135 mmol/L (136-145)
[2019-11-10 15:49] LABS: Anisocytosis SLIGHT = 6-15 cells (100X) (0-5/hpf); Elliptocytes SLIGHT = 2-5 cells (100X) (0-1/hpf); Hypochromia SLIGHT = 6-15 cells (100X) (0-5/hpf); MDiff Complete? YES; Microcytosis SLIGHT = 6-15 cells (100X) (0-5/hpf); Ovalocytes SLIGHT = 2-5 cells (100X) (0-1/hpf); Platelet Morphology Comment Appears Increased; Poikilocytosis SLIGHT = 6-15 cells (100X) (0-5/hpf); Polychromasia SLIGHT = 2-3 cells (100X) (0-2/hpf); Schistocytes SLIGHT = 2-5 cells (100X) (0-1/hpf); Tear Drops SLIGHT = 2-5 cells (100X) (0-1/hpf)
[2019-11-10] MEDS ORDERED: cefTRIAXone\\ROCEPHIN 2 GM VIAL ONE (15:51)
[2019-11-10] MEDS ORDERED: Morphine 4 MG/ML VIAL ONE (15:52)
[2019-11-10] MEDS ORDERED: Ondansetron PF 4 MG/2 ML Vial ONE (15:52)
[2019-11-10] MEDS ORDERED: metroNIDAZOLE 500 MG/100 ML BAG ONE (15:59)
[2019-11-10] MEDS ORDERED: Pantoprazole 80 MG, Admixture Fee 1 EACH in Sodium Chloride 0.9% 100 ML IVPB SCH (16:45)
[2019-11-10] MEDS ORDERED: Pantoprazole 40 MG VIAL ONE ×2 (17:44→17:45)
--- NOTE | 2019-11-10 18:40 | CT ---
CT ABDOMEN AND PELVIS WITH CONTRAST: 11/10/19 HISTORY: Abdominal pain, nausea and vomiting. COMPARISON: None. FINDINGS: There is a subtle ground glass opacity in the superior segment left lower lobe incompletely evaluated . No pericardial effusion. There is oral and rectal contrast throughout the bowel. No abnormal bowel dilatation. The liver, gall bladder, spleen, adrenal glands, are unremarkable. The pancreas is unremarkable aside from a few par enchymal calcifications of the pancreatic head and uncinate process. The uncinate process is a round 7 mm hypodensity. Portal vein is patent. There is extensive atherosclerotic plaque of the celiac trunk with severe narr owing of the celiac artery and common hepatic artery. There is also high grade narrowing of the splen ic artery due to calcific and soft plaque. The SMA origin has minimal arterial flow likely occluded. There is some low grade flow 3 cm from the ostia. Symmetric bilateral renal enhancement. Cyst inferior pole right kidney, Cyst interpolar region of the left kidney. Anterior mesenteric artery is patent. High grade plaque of the common iliac arteries. No free intraperitoneal gas or fluid. IMPRESSION: 1. Ground glass opacities in superior segment left lower lobe could reflect resolving infection. Aspiration is also a possibility. 2. Multiple rectal erosions with left perirectal fisutal to the left gluteal fold along with sin us tracts to the mesorectal fascia, presacral space and near the base of the penis. Pelvic MRI with a nd without contrast recommended. Ulcerative mass is of concern. There is also remodeling of the coccy x suggesting underlying osteomyelitis. 3. 6 mm hypodensity of the pancreatic uncinate process. Follow-up pancreatic protocol MRI in six months is recommended. 4. Likely complete exclusion of the proximal 2 cm superior mesenteric artery with some periphera l flow. The patient's symptomatology could be sequela of mesenteric ischemia from SMA insufficiency. 5. Severe plaque of the splenic artery and common hepatic artery due to atherosclerotic plaque. 6. Conventional angiogram and workup of the SMA narrowing may be beneficial to evaluate mesenter ic vascular insufficiency. 7. No evidence for bowel obstruction. POS: [facility]
[2019-11-10 18:42] LABS: INR-International Normal Ratio 1.1; PTT 31.6 SEC (22.9-36.1)
[2019-11-10] MEDS ORDERED: Ondansetron PF 4 MG/2 ML Vial IVP PRN (19:02)
[2019-11-10 19:47] LABS: Hemoglobin 6.3 g/dL (14.0-18.0)
[2019-11-10 20:18] VITALS: BMI 22.7
--- NOTE | 2019-11-10 21:28 | PDOC.HHP ---
Hospitalist HPI - History of Present Illness Rectal pain History of Present Illness: Patient is a 74 year old male with PMH HTN, HLD who presents to ED for several months perirectal pain and diarrhea. Some nausea, vomiting as well, patient poor historian. Went to PCP today and given antidiarrheals. Symptoms started perhaps 3 months ago. In ED, imaging performed revealing perirectal fistula as well as possible SMA occlusion, general surgery, CV surgery and GI consulted by ED and patinet to be admitted for further workup and care. Patient reportedly also had a few episodes of red stool w/ clots as well as black stool, patietn unable to further elaborate. Denies fever, chest pain, shortness of breath. Daughter Maurilio given permission to be given information [phone] ED Course: VITAL SIGNS SatNovember 10, 2019 19:08 JENNIFER Nguyen, [place] BP: 159/93 Pulse: 73 Resp: 16 Temp: 98.0 (Oral) Pain: 0 O2 sat: 100 on (Room Air) Time: 11/10/2019 19:08. Hospitalist ROS - Review of Systems Constitutional: denies: fever, chills, sweats, weakness, malaise, other Eyes: denies: pain, vision change, conjunctivae inflammation, eyelid inflammation, redness, other ENT: denies: ear pain, ear discharge, nose pain, nose discharge, nose congestion , mouth pain, mouth swelling, throat pain, throat swelling, other Respiratory: denies: cough, dry, shortness of breath, hemoptysis, SOB with excertion, pleuritic pain, sputum, wheezing, other Cardiovascular: denies: chest pain, palpitations, orthopnea, paroxysmal noc. dyspnea, edema, light headedness, other Gastrointestinal: reports: diarrhea, melena, hematochezia, other (perirectal pain, red/black stool). denies: nausea, vomiting, abdominal pain, constipation Genitourinary: denies: dysuria, frequency, incontinence, hematuria, retention, other Musculoskeletal: denies: neck pain, shoulder pain, arm pain, back pain, hand pain, leg pain, foot pain, other Skin: denies: rash, lesions, nneka, bruising, other Neurological: denies: weakness, numbness, incoordination, change in speech, confusion, seizures, other All other systems reviewed; all pertinent +/- noted in HPI/Subj Hospitalist History - Past Medical History Other Medical History: HTN HLD CAD PAD - Past Surgical History Other Surgical History: CABG, L carotid surgery - Family History Family History: reports: no pertinent history - Social History Smoking Status: Never smoker Alcohol: reports: Rare Drugs: reports: none - Exam General Appearance: NAD, awake alert Eye: PERRL, anicteric sclera ENT: normocephalic atraumatic, no oropharyngeal lesions, moist mucosa Neck: supple, symmetric, no JVD, no thyromegaly, no lymphadenopathy, no carotid bruit Heart: RRR, no murmur, no gallops, no rubs, normal peripheral pulses Respiratory: CTAB, no wheezes, no rales, no ronchi, normal chest expansion, no tachypnea, normal percussion Gastrointestinal: soft, non-tender, non-distended, normal bowel sounds, no palpable masses, no hepatomegaly, no splenomegaly, no bruit Gastrointestinal - other findings: perirectal fistula 2 in proximal to anus, tenderness, some dark stool Extremities: no cyanosis, no clubbing, no edema Skin: normal turgor, no lesions, no rashes Neurological: cranial nerve grossly intact, normal sensation to touch, no weakness, no focal deficits, no new deficit Musculoskeletal: normal tone, normal strength, no muscle wasting Psychiatric: normal affect, normal behavior, A&O x 3 Hospitalist Results - Labs Result Diagrams: 11/10/19 19:21 11/10/19 14:28 Lab results: WBC 9.6 thou/uL (4.8-10.8) 11/10/19 14:52 Hgb 6.3 g/dL (14.0-18.0) L 11/10/19 19:21 Hct 22.5 % (42.0-52.0) L 11/10/19 19:21 MCV 68.3 fL (78.0-98.0) L 11/10/19 14:52 Plt Count 473 thou/uL (130-400) H 11/10/19 14:52 Neutrophils % 65.2 % (42.0-75.0) 11/10/19 14:52 Sodium 135 mmol/L (136-145) L 11/10/19 14:28 Potassium 4.0 mmol/L (3.5-5.1) 11/10/19 14:28 Chloride 103 mmol/L (98-107) 11/10/19 14:28 Carbon Dioxide 21 mmol/L (23-31) L 11/10/19 14:28 BUN 13 mg/dL (8.4-25.7) 11/10/19 14:28 Creatinine 1.39 mg/dL (0.7-1.3) H 11/10/19 14:28 Glucose 137 mg/dL (83-110) H 11/10/19 14:28 Calcium 8.1 mg/dL (7.8-10.44) 11/10/19 14:28 Total Bilirubin 0.5 mg/dL (0.2-1.2) 11/10/19 14:28 AST 13 U/L (5-34) 11/10/19 14:28 ALT 8 U/L (8-55) 11/10/19 14:28 Alkaline Phosphatase 89 U/L (40-110) 11/10/19 14:28 Serum Total Protein 7.3 g/dL (5.8-8.1) 11/10/19 14:28 Albumin 2.5 g/dL (3.4-4.8) L 11/10/19 14:28 Lipase 38 U/L (8-78) 11/10/19 14:28 Additional comment: Abdomen/pelvis CT scan with contrast shows Other findings: IMPRESSION: 1. Ground glass opacities in superior segment left lower lobe could reflect resolving infection. Aspiration is also a possibility. 2. Multiple rectal erosions with left perirectal fisutal to the left gluteal fold along with sin us tracts to the mesorectal fascia, presacral space and near the base of the penis. Pelvic MRI with a nd without contrast recommended. Ulcerative mass is of concern. There is also remodeling of the coccy x suggesting underlying osteomyelitis. 3. 6 mm hypodensity of the pancreatic uncinate process. Follow-up pancreatic protocol MRI in six months is recommended. 4. Likely complete exclusion of the proximal 2 cm superior mesenteric artery with some periphera l flow. The patients symptomatology could be sequela of mesenteric ischemia from SMA insufficiency. 5. Severe plaque of the splenic artery and common hepatic artery due to atherosclerotic plaque. 6. Conventional angiogram and workup of the SMA narrowing may be beneficial to evaluate mesenter ic vascular insufficiency. 7. No evidence for bowel obstruction. RESULTS Hospitalist H&P A/P - Plan Plan: Patient is a 74 year old male with PMH HTN, HLD who presents to ED for several months perirectal pain and diarrhea. # SMA chronic occlusion # perirectal fistula # diarrhea - no history of Crohns disease, Dr Dyer consulted and Dr Zuleta by ED, admit to floor, IVF, monitor closely, NPO past midnight - pelvic MRI recommended by radiology, defer to surgery - continue zosyn # possible GI bleed - some hematochezia and melena reported, will maintain on PPI and hold antiplatelet/blood thinners, GI consulted # history of CAD/CABG - will have to hold antiplatelet in setting of GI bleed, no chest pain # anemia - presumes acute or acute on chronic due to blood loss, getting pRBC in ED, trend CBC # pancreatic 6mm hypodensity - outpatient pancreatic MRI recommended in 6 months # MARTHA vs CKD III - monitor BMP, avoid nephrotoxins Daughter Maurilio given permission to be given information [phone]
[2019-11-10] MEDS: Pantoprazole 40 MG VIAL IVP SCH (22:33)
[2019-11-10] MEDS: Atorvastatin Calcium 20 MG TAB PO SCH (22:43)
[2019-11-11] MEDS: Sodium Chloride 0.9% 1,000 ML IV SCH ×3 (00:23→20:33)
[2019-11-11 01:36] LABS: Hemoglobin 7.2 g/dL (14.0-18.0)
[2019-11-11 05:29] LABS: #Eosinphils 0.1 thou/uL (0.0-0.7); #Neutrophils 7.6 thou/uL (1.40-6.50); %Basophils 0.2 % (0.0-1.0); %Eosinophils 0.5 % (0.0-10.0); %Lymphocytes 25.7 % (21.0-51.0); %Monocytes 8.5 % (0.0-10.0); %Neutrophils 65.1 % (42.0-75.0); Mean Corpuscular HGB CONC 29.3 g/dL (32.0-36.0); Mean Corpuscular Hemoglobin 20.7 pg (27.0-31.0); Mean Corpuscular Volume 70.6 fL (78.0-98.0); Mean Platelet Volume 8.6 fL (7.4-10.4); Platelet Count 368 thou/uL (130-400); RBC Distribution Width 19.2 % (11.5-14.5); White Blood Cell (WBC) Count 11.7 thou/uL (4.8-10.8)
[2019-11-11 05:45] LABS: ALT (SGPT) 7 U/L (8-55); AST (SGOT) 14 U/L (5-34); Albumin 2.1 g/dL (3.4-4.8); Alkaline Phosphatase 70 U/L (40-110); Anion Gap 12 mmol/L (10-20); BUN (Urea Nitrogen) 12 mg/dL (8.4-25.7); Bilirubin, Total 0.9 mg/dL (0.2-1.2); Calc. Creatinine Clearance 44 mL/min (70-130); Calcium 7.6 mg/dL (7.8-10.44); Carbon Dioxide 21 mmol/L (23-31); Chloride 105 mmol/L (98-107); Estimated GFR-MDRD 59; Glucose 90 mg/dL (83-110); Potassium 4.1 mmol/L (3.5-5.1); Protein, Total 6.1 g/dL (5.8-8.1); Sodium 134 mmol/L (136-145)
[2019-11-11] MEDS: Acetaminophen 325 MG TAB PO PRN ×2 (06:38→16:12)
[2019-11-11 07:33] LABS: Bilirubin Negative (Negative); Blood, Urine Negative (Negative); Clarity Clear (Clear); Glucose, Urine (Dipstick) Normal (Negative); Leukocyte Negative Leu/uL (Negative); Nitrite Negative (Negative); Protein, Urine (Dipstick) 20 mg/dL (Neg-Trace)
[2019-11-11] MEDS ORDERED: Prevnar 13-Val Conj/PF 0.5 ML SYRINGE IM ONE (09:00)
[2019-11-11 09:50] LABS: HBCM Index 0.06 S/CO (0-0.79); HBSAg Index 0.19 S/CO (0-0.99); HIV (1/2) Antibody/Antigen Non-Reactive (NonReactive); HIV 1/2 INDEX 0.06 S/CO (<1.00); Hep A IgM AB Non-Reactive (NonReactive); Hep A IgM S/CO 0.17 S/CO (0-0.79); Hep B Surf Ag Non-Reactive S/CO (NonReactive); Hep C IgG Ab Non-Reactive (NonReactive); Hepatitis B Core IgM Abs Non-Reactive (NonReactive)
[2019-11-11] MEDS: Losartan 25 MG TAB PO SCH (10:16)
[2019-11-11] MEDS: Carvedilol 6.25 MG TAB PO SCH ×2 (10:17→15:49)
[2019-11-11] MEDS: Isosorbide Mononitrate (ER) 30 MG TAB PO SCH (10:17)
[2019-11-11] MEDS: Pantoprazole 40 MG VIAL IVP SCH ×2 (10:17→20:33)
--- NOTE | 2019-11-11 11:46 | PDOC.HOSPP ---
- Subjective Encounter Date: 11/11/19 Encounter Time: 08:00 Subjective: abdominal pain has resolved this am, no nausea he is not sure if he was having black or bloody stools has known h/o hemorrhoids poor historian, says he was eating well - Objective Vital Signs & Weight: Vital Signs (12 hours) Temp Pulse Pulse Resp BP BP Pulse Ox 11/11/19 03:53 99.2 F 75 16 115/45 L 96 11/11/19 00:19 98.7 F 78 16 132/47 L 99 11/11/19 00:05 98.8 F 71 16 142/46 H 98 Weight Weight 132 lb 7 oz I&O: 11/10/19 11/11/19 11/12/19 06:59 06:59 06:59 Intake Total 1035 Output Total 200 Balance 835 Result Diagrams: 11/11/19 07:03 11/11/19 04:53 Hospitalist ROS - Medication Medications: Active Medications Generic Name Dose Route Start Last Admin Trade Name Freq PRN Reason Stop Dose Admin Acetaminophen 650 mg 11/10/19 19:02 11/11/19 06:38 Tylenol PO 650 mg Q4H PRN Administration Headache/Fever/Mild Pain (1-3) Atorvastatin Calcium 20 mg 11/10/19 21:00 11/10/19 22:43 Lipitor PO 20 mg HS RG Administration Carvedilol 6.25 mg 11/11/19 08:00 11/11/19 10:17 Coreg PO 6.25 mg BID-WM RG Administration Sodium Chloride 1,000 mls @ 75 mls/hr 11/10/19 20:45 11/11/19 00:23 Normal Saline 0.9% IV 1,000 mls .[id number] RG Administration Levofloxacin 500 mg/ Device 100 mls @ 100 mls/hr 11/11/19 09:45 11/11/19 10: 19 IVPB 11/11/19 11:45 100 mls NOW RG Administration Isosorbide Mononitrate 30 mg 11/11/19 09:00 11/11/19 10:17 Imdur Er PO 30 mg DAILY RG Administration Losartan Potassium 50 mg 11/11/19 09:00 11/11/19 10:16 Cozaar PO 50 mg DAILY RG Administration Pantoprazole Sodium 40 mg 11/10/19 21:00 11/11/19 10:17 Protonix IVP 40 mg Q12HR RG Administration - Exam General Appearance: awake alert Eye: PERRL, anicteric sclera ENT: no oropharyngeal lesions, dry oral mucosa Neck: supple, no JVD Heart: RRR, no murmur Respiratory: no wheezes, no rales Gastrointestinal: soft, non-tender, non-distended, normal bowel sounds, no guarding, no rigidity Extremities: no cyanosis, no edema Neurological: cranial nerve grossly intact, no focal deficits Hosp A/P (1) Acute blood loss anemia Code(s): D62 - ACUTE POSTHEMORRHAGIC ANEMIA Status: Acute (2) Severe protein-calorie malnutrition Code(s): E43 - UNSPECIFIED SEVERE PROTEIN-CALORIE MALNUTRITION Status: Acute (3) Anal fissure Code(s): K60.2 - ANAL FISSURE, UNSPECIFIED Status: Acute (4) Mesenteric ischemia Code(s): K55.9 - VASCULAR DISORDER OF INTESTINE, UNSPECIFIED Status: Acute (5) CAD (coronary artery disease) Code(s): I25.10 - ATHSCL HEART DISEASE OF [place] CORONARY ARTERY W/O ANG PCTRS Status: Chronic Qualifiers: Coronary Disease-Associated Artery/Lesion type: bypass graft [place] vs. transplanted heart: [place] heart Associated angina: without angina Qualified Code(s): I25.810 - Atherosclerosis of coronary artery bypass graft(s) without angina pectoris (6) Carotid arterial disease Code(s): I77.9 - DISORDER OF ARTERIES AND ARTERIOLES, UNSPECIFIED Status: Chronic Qualifiers: Laterality: bilateral (7) Dyslipidemia Code(s): E78.5 - HYPERLIPIDEMIA, UNSPECIFIED Status: Chronic - Plan CT abd results noted stool campylobacter Ag is +ve, will give levaquin x3 days instead of zithromax due to covid 19 needs iv hydration alb is 2.1, says he is eating well, ?poor absorption, never had colonoscopy per patient has recieved 1 u prbc, will give 1 more unit due to mesenteric ischemia and generalized atherosclerosis with poor perfusion GI consultation hemostable to ambulate as tolerated with assistance (was dizzy at home) HIV and hep panel are -ve, unclear etiology for fissure/fistula, might need colonoscopy with biopsies.
[2019-11-11] MEDS ORDERED: Lactated Ringer's 1,000 ML IV SCH (12:15)
[2019-11-11] MEDS ORDERED: Aspirin 81 mg Enteric Coated Tablet PO SCH (12:15)
--- NOTE | 2019-11-11 13:01 | PRG ---
DATE OF SERVICE: 11/11/2019 I had tentatively planned on angiography tomorrow to assess his mesenteric vessels and possibly status celiac axis. However, I think that this would be better off delayed until after his GI workup is complete and evaluation by General Surgery is undertaken, so anticipate no angiograms this week. Job ID: [id number]
[2019-11-11 13:14] LABS: Hemoglobin 6.5 g/dL (14.0-18.0)
--- NOTE | 2019-11-11 14:00 | CON ---
DATE OF CONSULTATION: HISTORY OF PRESENT ILLNESS: This is a 74-year-old gentleman, who was admitted last night. The patient is a rather poor historian, who had previously operated on his coronary arteries 2 years ago and his left carotid 1 year ago and sometime over the past year or two, the patient has began experiencing weight loss. He states he weighed about 180 pounds at the time of his coronary artery bypass grafting and his current weight is 132 pounds. One year ago in my office, the patient's weight was 164 pounds. He has been experiencing diarrhea for a long period of time, probably a year or two and complaints of hemorrhoid, which is probably getting worse. He presented to the hospital ED yesterday primarily due to some bleeding from his hemorrhoids as well as pain in the perianal area, specifically denying any abdominal pain. He states that he can eat his 3 meals a day without difficulty with no pain at the time of feeding, however, notes about once or twice a week he may vomit in the middle of the night. PAST MEDICAL HISTORY: Includes dyslipidemia, left subclavian artery stenosis, and coronary artery disease. PAST SURGICAL HISTORY: Coronary artery bypass graft x5 in 2018, right carotid endarterectomy in 2019. SOCIAL HISTORY: The patient was 1-to 3-afrt-g-day smoker, but has not smoked in greater than 10 years. He is a nondrinker. He lives with a daughter. MEDICATIONS: Reported current medication includes; 1. Tums. 2. Pepto-Bismol. 3. Antidiarrheal medicine. 4. Coreg 6.25 b.i.d. 5. Atorvastatin 20 a day. 6. Isosorbide 30 a day. 7. Losartan 50 a day. 8. Aspirin one a day. ALLERGIES: NONE KNOWN. PHYSICAL EXAMINATION: VITAL SIGNS: Weight 132, height 5 feet and 4 inches. GENERAL: No distress. NECK: No carotid bruits. LUNGS: Clear to auscultation. CARDIAC: Distant heart sounds. Regular rate and rhythm. No murmurs. ABDOMEN: Scaphoid, nontender. No scars. Positive bowel sounds. EXTREMITIES: He has palpable femoral and popliteal pulses with no pedal pulses. No peripheral edema. LABORATORY DATA: Hemoglobin 7. Creatinine 1.2. IMAGING DATA: CT scan shows high-grade celiac artery stenosis with possible occlusion or high-grade stenosis of the SMA and patent inferior mesenteric atherosclerosis of the aortoiliac segments with less severe disease in the femoral segments, but calcification present. Possible perianal sinus tract, possible ulcerative mass in the region of the pelvis, but ill-defined. ASSESSMENT AND PLAN: Consideration can be given to angiography and possible stenting of the celiac or superior mesenteric artery and I have discussed this with the patient. He does have significant weight loss and whether this is related to chronic mesenteric ischemia or underlying malignancy is not clear. We will await evaluation by GI and Gastroenterology today and if further workup is indicated in their regards, I will postpone any angiography. Job ID: [id number] MTDD
[2019-11-11] MEDS ORDERED: GoLYTELY 4,000 ml Bottle PO SCH (17:00)
[2019-11-11] MEDS ORDERED: Ondansetron PF 4 MG/2 ML Vial SLOW IVP PRN (19:03)
[2019-11-11] MEDS ORDERED: Ondansetron HCl/PF 8 MG in Sodium Chloride 0.9% 50 ML IVPB PRN (19:16)
[2019-11-11] MEDS: Atorvastatin Calcium 20 MG TAB PO SCH (20:33)
--- NOTE | 2019-11-11 21:46 | CON ---
DATE OF CONSULTATION: 11/11/2019 REASON FOR CONSULTATION: Weight loss and abnormal CT. HISTORY OF PRESENT ILLNESS: Mr. Mcduffie is a 74-year-old man who presented to the hospital yesterday primarily because of severe rectal pain thought to be from hemorrhoids. History taking from Mr. Mcduffie is rather difficult as he is very tangential in his response. However, his daughter is present. Reportedly, patient has had a 30-40-pound weight loss over the last 3 months. He has been eating less, although he denies having any decreased appetite. He does report having abdominal pain, diffusely and nonlocalizing, typically 2-3 hours after eating. At the same time , his daughter reports that the patient has periodic rectal incontinence without knowing. The stool has been dark and at times black. There is no visible red blood or mucus in the stool. The patient has not had any previous colon exam. He has no antecedent gastrointestinal problem. PAST MEDICAL HISTORY: 1. Hypertension. 2. Hyperlipidemia. 3. Coronary artery disease, status post bypass surgery. SOCIAL HISTORY: The patient has no smoking or alcohol usage. Daughter lives with him. FAMILY HISTORY: Negative for any known GI problem, liver disease, or GI malignancy. ALLERGIES: NONE. MEDICATION: Include: 1. Coreg. 2. Isosorbide mononitrate. 3. Cozaar. 4. Pantoprazole 40 mg IV q.12. 5. Levaquin 500 mg p.o. daily. REVIEW OF SYSTEMS: A 10-point review of systems did not show any other reported symptoms. No other pertinent positives or negatives. PHYSICAL EXAMINATION: VITAL SIGNS: Temperature is 98.6, blood pressure 123/44, pulse of 98. GENERAL: He is alert, conversant, in no distress. HEENT: Exam shows anicteric sclerae. Oropharynx is moist. NECK: Supple. CV: Shows normal S1, S2. Regular rate and rhythm. CHEST: Shows breath sounds. ABDOMEN: Mildly protuberant, but soft. No tympany. No distention. He has active bowel sounds. No palpable mass or organomegaly. RECTAL: Rectal exam attempted, but the patient has large amount of liquid stool in his diaper and coating his entire perianal area. LABORATORY DATA: WBC is 11.7, hemoglobin 7.0, after 1 unit (6.3), hematocrit 24 %, MCV of 68. Electrolytes within normal range. Creatinine 1.20, bilirubin 0.9, AST 14, ALT of 7, albumin 2.1, lipase of 38. IMAGING: Abdominal pelvic CT showed changes in the rectum with sinus tract and fistulas going to the left gluteal fold and mesorectal and presacral area. The patient also has findings suggesting occlusion of SMA. ASSESSMENT: 1. Severe anemia with CT finding of perirectal inflammatory changes with sinus tracts to the presacral space in the left gluteal area. In context of severe weight loss and anemia, primary GI malignancy needs to be excluded. Other possibility is Crohn's disease with perirectal involvement. 2. Microcytic anemia, presumably iron deficiency, rule out chronic gastrointestinal blood loss. 3. Possible mesenteric vascular insufficiency as patient gives description of abdominal pain after eating associated with weight loss. RECOMMENDATION: 1. We will proceed with EGD and colonoscopy tomorrow, bowel prep today. I have explained this to Mr. Mcduffie and his daughter regarding indication and risk. 2. Further recommendation to follow pending above findings. Job ID: [id number] [facility]
[2019-11-11] MEDS: HYDROcodone/Acetaminophen 7.5/325 mg Tablet PO PRN (22:50)
[2019-11-12] MEDS: Sodium Chloride 0.9% 1,000 ML IV SCH ×2 (00:07→18:44)
[2019-11-12 05:22] LABS: #Eosinphils 0.1 thou/uL (0.0-0.7); #Lymphocytes 1.8 thou/uL (1.20-3.40); #Neutrophils 10.2 thou/uL (1.40-6.50); %Basophils 0.3 % (0.0-1.0); %Eosinophils 0.4 % (0.0-10.0); %Lymphocytes 13.4 % (21.0-51.0); %Monocytes 7.8 % (0.0-10.0); %Neutrophils 78.1 % (42.0-75.0); Hemoglobin 8.6 g/dL (14.0-18.0); Mean Corpuscular HGB CONC 29.6 g/dL (32.0-36.0); Mean Corpuscular Hemoglobin 21.8 pg (27.0-31.0); Mean Corpuscular Volume 73.7 fL (78.0-98.0); Mean Platelet Volume 9.3 fL (7.4-10.4); Platelet Count 312 thou/uL (130-400); Red Blood Cell (RBC) Count 3.94 mill/uL (4.70-6.10); White Blood Cell (WBC) Count 13.1 thou/uL (4.8-10.8)
[2019-11-12 05:42] LABS: ALT (SGPT) 7 U/L (8-55); AST (SGOT) 14 U/L (5-34); Alkaline Phosphatase 73 U/L (40-110); Anion Gap 12 mmol/L (10-20); BUN (Urea Nitrogen) 12 mg/dL (8.4-25.7); Bilirubin, Total 0.8 mg/dL (0.2-1.2); Calc. Creatinine Clearance 46 mL/min (70-130); Calcium 7.7 mg/dL (7.8-10.44); Carbon Dioxide 21 mmol/L (23-31); Chloride 105 mmol/L (98-107); Estimated GFR-MDRD 61; Glucose 87 mg/dL (83-110); Potassium 3.8 mmol/L (3.5-5.1); Sodium 134 mmol/L (136-145)
--- NOTE | 2019-11-12 06:18 | CON ---
DATE OF CONSULTATION: REASON FOR CONSULT: Perianal fistulas. HISTORY OF PRESENT ILLNESS: Mr. Mcduffie is a 74-year-old man with multiple medical issues. He states that he has had fairly persistent steady slow weight loss for the past couple of years. However, he denies any food fear or postprandial pain except rarely. He has had chronic diarrhea for at least a month, but probably much longer and has also had rectal bleeding, although he is unable to quantify that. He states that he thought that it was a hemorrhoid flaring up and he finally decided to come into the emergency room because this was bothering him more than usual. He denies any fevers or chills. He has never had a colonoscopy. He does not have any family history of GI malignancy that he is aware of. He does have severe peripheral vascular disease and coronary artery disease. He has undergone coronary artery bypass grafting by Dr. Dyer a couple of years ago as well as CEA and a CT scan on his admission showed high-grade stenosis of the celiac artery with either high- grade stenosis or possible occlusion with reconstitution of the SMA. However, no obvious ischemic changes of the bowel were noted. He was also noted on his CT to have gas in the perirectal soft tissues and osteomyelitic changes of the coccyx as well as fistulous tracts to the perianal skin. PAST MEDICAL HISTORY: Coronary artery disease, status post coronary artery bypass grafting, cerebrovascular disease, status post CEA, hypertension, hyperlipidemia. PAST SURGICAL HISTORY: Coronary artery bypass grafting and left CEA. FAMILY HISTORY: None pertinent. SOCIAL HISTORY: The patient is a former smoker, quit about 10 years ago. Drinks rarely and not to excess. He denies any drug use. REVIEW OF SYSTEMS: Ten system review of systems is negative except per HPI. The patient denies any fevers or chills, shortness of breath. He states that he occasionally has abdominal pain, but he is not able to really describe this or name any exacerbating or relieving factors. The drainage and diarrhea has been fairly constant for the last month. The bleeding is intermittent. PHYSICAL EXAMINATION: VITAL SIGNS: The patient has been afebrile since his admission, heart rate 75, respirations 16, 96% saturated on room air, blood pressure 115/45. GENERAL: Reveals a pleasant elderly man, in no acute distress. He is a very vague historian, but appears to be reliable. HEENT: Unremarkable. NECK: Supple without lymphadenopathy or thyroid nodules. HEART: Regular in its rate and rhythm without murmurs, rubs, or gallops. He has a healed sternotomy incision. LUNGS: Clear to auscultation bilaterally. No wheeze or crackles. ABDOMEN: Soft, nontender, and nondistended. Does not have any palpable masses , or hernias. EXTREMITIES: Warm and well perfused without significant edema. NEURO: No focal deficits. PSYCHIATRIC: Alert, oriented, and appropriate. : Perianal exam shows a large amount of liquid stool in the diaper with ry stool coming from the fistulous tract in left perianal area. He has inflamed perianal skin tags and on digital rectal examination, the entire rectum feels thickened, abnormal and he has significant pain with palpation. He did not tolerate a complete digital rectal examination, so it is limited. IMAGING: CT images are reviewed and I agree with the written report. LABORATORY DATA: White count is mildly elevated at 11.7 without a left shift. Hematocrit is low at 24, but has been stable since admission. Creatinine was mildly elevated at 1.39 on admission, has improved to 1.2 this morning. Other electrolytes are unremarkable. Albumin is low. BNP is slightly elevated at 313. LFTs are normal. Calcium is not elevated. 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 The patient has chronic diarrhea and stool studies came back positive for Cryptosporidium and Campylobacter, which in my opinion, likely indicate a relatively immunocompromised state rather than the primary cause of his diarrhea. I am unsure whether his fistulas are due to untreated severe inflammatory bowel disease or malignancy. He did not tolerate a thorough digital rectal examination, but the tissues feel grossly abnormal. Dr. Voss of Gastroenterology has been consulted and is going to see him this afternoon. I will await his evaluation. The patient will require endoscopy. I believe that the fistulous tracts are due to underlying disease and I doubt that surgical intervention will be helpful in getting these to heal without addressing the underlying problem. He may require diversion to allow this area to heal. However, we will await the results of Dr. Voss's evaluation first. Dr. Dyer had been considering mesenteric angiography, which I believe is indicated. The patient has very tenuous blood supply to his bowel and any worsening of this could be catastrophic. However, I will leave it to Dr. Dyer's judgment regarding the timing of the intervention. He does not appear to have classic mesenteric ischemic symptoms, although he has had persistent weight loss. This could however be due to the changes in the colon, which I do not think are ischemic. I will continue to follow the patient while he is an inpatient. Job ID: [id number] MTDD
[2019-11-12] MEDS: Carvedilol 6.25 MG TAB PO SCH ×2 (07:57→18:44)
[2019-11-12] MEDS: Pantoprazole 40 MG VIAL IVP SCH (07:57)
--- NOTE | 2019-11-12 10:18 | PDOC.GSPN ---
Surgery Progress Note: Subj - Subjective Narrative: Patient completed his bowel prep yesterday. His perianal pain is about the same. Will await results of colonoscopy today. No new recommendations. Surgery Progress Note: Obj - Vital signs Vital signs: Vital Signs - Most Recent Temp Pulse Resp BP Pulse Ox 98.3 F 70 14 145/54 H 98 11/12/19 07:56 11/12/19 07:56 11/12/19 07:56 11/12/19 07:56 11/12/19 07:56 Surgery Progress Note: Results - Labs Result Diagrams: 11/12/19 04:51 11/12/19 04:51 Lab results: Laboratory Results - last 24 hr 11/12/19 11/12/19 04:51 04:51 WBC 13.1 H RBC 3.94 L Hgb 8.6 L Hct 29.1 L MCV 73.7 L MCH 21.8 L MCHC 29.6 L RDW 21.0 H Plt Count 312 MPV 9.3 Neutrophils % 78.1 H Neutrophils % (Manual) Not Reportable Lymphocytes % 13.4 L Monocytes % 7.8 Eosinophils % 0.4 Basophils % 0.3 Neutrophils # 10.2 H Lymphocytes # 1.8 Monocytes # 1.0 H Eosinophils # 0.1 Basophils # 0.0 Sodium 134 L Potassium 3.8 Chloride 105 Carbon Dioxide 21 L Anion Gap 12 BUN 12 Creatinine 1.16 Estimated GFR (MDRD) 61 Glucose 87 Calcium 7.7 L Total Bilirubin 0.8 AST 14 ALT 7 L Alkaline Phosphatase 73 Serum Total Protein 6.0 Albumin 2.0 L Globulin 4.0 H Albumin/Globulin Ratio 0.5 L
[2019-11-12] MEDS ORDERED: PROPOFOL 200 MG/20 ML VIAL ONE (10:50)
[2019-11-12] MEDS ORDERED: Ondansetron HCl/PF 4 MG/2 ML Vial IVP PRN (13:27)
[2019-11-12] MEDS: Losartan 25 MG TAB PO SCH (18:44)
[2019-11-12] MEDS: Isosorbide Mononitrate (ER) 30 MG TAB PO SCH (18:44)
[2019-11-12] MEDS ORDERED: Clopidogrel Bisulfate 75 MG TAB PO SCH (19:30)
[2019-11-12] MEDS ORDERED: Aspirin 81 mg Enteric Coated Tablet PO SCH (19:30)
[2019-11-12] MEDS: Atorvastatin Calcium 20 MG TAB PO SCH (21:05)
[2019-11-13] MEDS: Acetaminophen 325 MG TAB PO PRN (01:10)
--- NOTE | 2019-11-13 01:16 | OP ---
DATE OF PROCEDURE: 11/12/2019 PREPROCEDURE DIAGNOSES: 1. Abnormal CAT scan with rectal mass with fistulas. 2. Anemia. 3. Progressive weight loss. PROCEDURES PERFORMED: Esophagogastroduodenoscopy, diagnostic colonoscopy, biopsy of rectal mass. POSTPROCEDURE DIAGNOSES: 1. Normal esophagogastroduodenoscopy. 2. Colonoscopy notable for circumferential rectal mass, fungating and hard protruding from the anal area extending from the anorectal verge, circumferentially up to 10 cm from the anorectal verge. Multiple biopsies obtained, submitted to Pathology. This appears to be a rectal malignancy or anal malignancy. 3. Otherwise normal colonoscopy except for poor prep. No large polyps or masses were seen. 4. Normal terminal ileum. RECOMMENDATIONS: Await histopathology. ANESTHESIA: TIVA. PROCEDURE IN DETAIL: The patient was informed of the risks, benefits, and possible complications of endoscopy including perforation, reaction to medication, and aspiration. Informed consent was obtained. The patient was brought to endoscopy suite, where he was sedated in a gradual fashion. Once he was comfortable, a bite block was placed inside his orifice. The endoscope was advanced to the esophagus, stomach and second and third portions of the duodenum and slowly removed. The duodenum was normal. The stomach was normal in forward and retroflexed views and esophagus was normal. Scope was removed. The patient was turned to the room. Rectal examination reveals a hard circumferential mass extending all the way down to the anorectal verge with some protrusion out through the anorectal verge, though appears to be no external anal lesions. This is palpable as far as I can feel with my finger. The endoscope was advanced to the anal canal. This appears to be a circumferential ulcerated mass extending from the anorectal verge all the way to 10 cm. Retroflexion could not be performed. Multiple biopsies were taken from the mass from both the base of the ulcerated area and from the fringes. No overt fistula tracts could be seen. The scope was then advanced above this to the cecum and the terminal ileum. We had it irrigated with about a liter of sterile water to clear the colon to get a good look. We still could not rule out lesions less than a cm in size, but no large masses or tumors were seen. There was no evidence of Crohn's or colitis. The ileum was normal. The scope was removed. The patient tolerated the procedure well. There were no complications. Job ID: [id number]
[2019-11-13] MEDS: Sodium Chloride 0.9% 1,000 ML IV SCH ×2 (03:32→15:50)
[2019-11-13 05:29] LABS: #Lymphocytes 2.9 thou/uL (1.20-3.40); #Monocytes 0.8 thou/uL (0.11-0.59); #Neutrophils 8.9 thou/uL (1.40-6.50); %Basophils 0.2 % (0.0-1.0); %Eosinophils 0.2 % (0.0-10.0); %Lymphocytes 22.7 % (21.0-51.0); %Monocytes 6.3 % (0.0-10.0); %Neutrophils 70.5 % (42.0-75.0); Hemoglobin 8.2 g/dL (14.0-18.0); Mean Corpuscular HGB CONC 30.3 g/dL (32.0-36.0); Mean Corpuscular Hemoglobin 22.5 pg (27.0-31.0); Mean Platelet Volume 8.8 fL (7.4-10.4); Platelet Count 315 thou/uL (130-400); RBC Distribution Width 21.6 % (11.5-14.5); Red Blood Cell (RBC) Count 3.67 mill/uL (4.70-6.10); White Blood Cell (WBC) Count 12.6 thou/uL (4.8-10.8)
[2019-11-13] MEDS: Carvedilol 6.25 MG TAB PO SCH (06:20)
[2019-11-13] MEDS: Isosorbide Mononitrate (ER) 30 MG TAB PO SCH (10:00)
[2019-11-13] MEDS: Losartan 25 MG TAB PO SCH (10:09)
--- NOTE | 2019-11-13 10:13 | PRG ---
DATE OF SERVICE: 11/13/2019 The patient underwent colonoscopy yesterday, and as per discussion with Dr. Garrido, either large anal or rectal carcinoma. 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 Whether he needs a diverting colostomy is unclear at this time. Since he has no symptoms presently from his mesenteric vascular disease, hesitant today to place a stent with Plavix therapy. This could be done at any time, but I think we will await biopsies and plans from surgical or oncologic standpoint prior to considering stent placement. The patient does have a patent inferior mesenteric artery as well as a severely stenotic but patent celiac artery with no typical symptoms of mesenteric angina. He has had significant weight loss over the last year, but no food aversion, making me suspicious that his weight loss may be at least primarily due to his colon cancer. We will follow along and as stated above can proceed with stenting at any point, but he will need Plavix therapy if stent successfully is placed. Job ID: [id number]
--- NOTE | 2019-11-13 10:55 | PDOC.HOSPP ---
- Subjective Encounter Date: 11/13/19 Encounter Time: 07:00 Subjective: Patient seen and examined for gen weakness/weight loss. Feeling better. No abd pain/diarrhea. No new complaints. No overnight events - Objective Vital Signs & Weight: Vital Signs (12 hours) Temp Pulse Resp BP BP BP Pulse Ox 11/13/19 10:03 74 91/49 L 11/13/19 09:58 96 11/13/19 07:18 98.3 F 73 26 H 71/39 L 96 11/13/19 06:20 105/52 L 11/13/19 04:05 98 F 77 16 105/52 L 100 11/12/19 23:56 100.1 F H 71 16 132/50 L 98 Weight Weight 132 lb 7 oz I&O: 11/12/19 11/13/19 11/14/19 06:59 06:59 06:59 Intake Total 1460 150 Output Total 200 Balance 1260 150 Result Diagrams: 11/13/19 04:55 11/12/19 04:51 Hospitalist ROS - Review of Systems Respiratory: denies: cough, dry, shortness of breath, hemoptysis, SOB with excertion, pleuritic pain, sputum, wheezing, other Cardiovascular: denies: chest pain, palpitations, orthopnea, paroxysmal noc. dyspnea, edema, light headedness, other - Medication Medications: Active Medications Generic Name Dose Route Start Last Admin Trade Name Freq PRN Reason Stop Dose Admin Acetaminophen 650 mg 11/10/19 19:02 11/13/19 01:10 Tylenol PO 650 mg Q4H PRN Administration Headache/Fever/Mild Pain (1-3) Hydrocodone Bitart/Acetaminophen 1 tab 11/10/19 19:02 11/11/19 22:50 [place] 7.5/325 PO 1 tab Q8H PRN Administration Moderate Pain (4-6) Atorvastatin Calcium 20 mg 11/10/19 21:00 11/12/19 21:05 Lipitor PO 20 mg HS RG Administration Carvedilol 6.25 mg 11/11/19 08:00 11/13/19 06:20 Coreg PO 6.25 mg BID-WM RG Administration Sodium Chloride 1,000 mls @ 75 mls/hr 11/10/19 20:45 11/13/19 03:32 Normal Saline 0.9% IV Not Given .[id number] RG Isosorbide Mononitrate 30 mg 11/11/19 09:00 11/13/19 10:00 Imdur Er PO 30 mg DAILY RG Administration Losartan Potassium 50 mg 11/11/19 09:00 11/13/19 10:09 Cozaar PO Not Given DAILY RG Pantoprazole Sodium 40 mg 11/13/19 09:00 11/13/19 09:58 Protonix PO 40 mg DAILY RG Administration Sodium Chloride 10 ml 11/11/19 21:00 11/13/19 09:58 Flush - Normal Saline IVF 10 ml Q12HR RG Administration - Exam General Appearance: NAD Heart: RRR, no gallops Respiratory: no wheezes, no ronchi Gastrointestinal: non-tender, non-distended, normal bowel sounds Extremities: no cyanosis, no clubbing Hosp A/P - Plan DVT proph w/SCDs Gen weakness Acute on chronic anemia due to GI blood loss Rectal mass Weight loss prob due to undiagnosed malignancy Mesenteric ischemia Perirectal fistula CAD/CABG Pancreatic 6mm hypodensity - outpatient pancreatic MRI recommended in 6 months MARTHA on CKD III HTN HLD Campylobacter/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
--- NOTE | 2019-11-13 13:13 | PDOC.GSPN ---
Surgery Progress Note: Subj - Subjective Narrative: Still awaiting pathology but colonoscopy yesterday suggestive of malignancy. CEA is also elevated supporting this diagnosis. Patient is feeling okay and not having too much pain. Dr. Dyer has decided to defer angioplasty and stenting until after the surgical plan is established since the patient will require Plavix after stent placement. If malignancy is confirmed, patient will require oncology agent and radiation oncology consultation to go over treatment options. Given his active infection and fistulous disease in the perirectal area he would likely require diversion and drainage before he is a candidate for chemotherapy or radiation, but the nature of the diversion will depend upon whether the cancer is anal or rectal in origin. I suspect he will need a permanent end colostomy but if the cancer is squamous then a loop colostomy could be considered. The patient expressed concern that he would not be able to handle chemotherapy and radiation, and certainly this is a valid concern given his multiple comorbidities. However, even if he decides to go on hospice a diverting colostomy would likely be palliative. I will be back on Saturday, by which time I hope the patient will have decided on a treatment plan. Dr. Gordon is available over the weekend if any surgical problems arise. Surgery Progress Note: Obj - Vital signs Vital signs: Vital Signs - Most Recent Temp Pulse Resp BP Pulse Ox 98.1 F 74 18 117/49 L 92 L 11/13/19 11:03 11/13/19 11:03 11/13/19 11:03 11/13/19 11:03 11/13/19 11:03 Surgery Progress Note: Results - Labs Result Diagrams: 11/13/19 04:55 11/12/19 04:51 Lab results: Laboratory Results - last 24 hr 11/13/19 11/13/19 04:55 04:55 WBC 12.6 H RBC 3.67 L Hgb 8.2 L Hct 27.2 L MCV 74.0 L MCH 22.5 L MCHC 30.3 L RDW 21.6 H Plt Count 315 MPV 8.8 Neutrophils % 70.5 Lymphocytes % 22.7 Monocytes % 6.3 Eosinophils % 0.2 Basophils % 0.2 Neutrophils # 8.9 H Lymphocytes # 2.9 Monocytes # 0.8 H Eosinophils # 0.0 Basophils # 0.0 Carcinoembryonic Ag 9.74 H
[2019-11-13] MEDS: Aspirin 81 mg Enteric Coated Tablet PO SCH (13:23)
[2019-11-13] MEDS: Clopidogrel Bisulfate 75 MG TAB PO SCH (13:23)
[2019-11-13 16:38] LABS: Routine O & P Final report (.)
[2019-11-13] MEDS: Carvedilol 3.125 MG TAB PO SCH (17:37)
[2019-11-13] MEDS: HYDROcodone/Acetaminophen 7.5/325 mg Tablet PO PRN (20:22)
[2019-11-13] MEDS: Atorvastatin Calcium 20 MG TAB PO SCH (20:23)
[2019-11-13] MEDS ORDERED: Morphine 2 MG/ML SYRINGE SLOW IVP PRN (21:34)
[2019-11-14] MEDS: Sodium Chloride 0.9% 1,000 ML IV SCH ×3 (03:47→10:00)
[2019-11-14 05:21] LABS: Reticulocyte Count 1.7 % (0.5-1.5)
[2019-11-14 05:39] LABS: Anion Gap 9 mmol/L (10-20); BUN (Urea Nitrogen) 11 mg/dL (8.4-25.7); Calc. Creatinine Clearance 48 mL/min (70-130); Calcium 7.3 mg/dL (7.8-10.44); Carbon Dioxide 22 mmol/L (23-31); Chloride 111 mmol/L (98-107); Estimated GFR-MDRD 64; Glucose 153 mg/dL (83-110); Magnesium 1.9 mg/dL (1.6-2.6); Potassium 3.7 mmol/L (3.5-5.1); Sodium 138 mmol/L (136-145)
[2019-11-14 05:40] LABS: Hemoglobin 7.4 g/dL (14.0-18.0); Mean Corpuscular HGB CONC 28.7 g/dL (32.0-36.0); Mean Corpuscular Hemoglobin 21.5 pg (27.0-31.0); Mean Platelet Volume 8.7 fL (7.4-10.4); Platelet Count 291 thou/uL (130-400); RBC Distribution Width 22.4 % (11.5-14.5); Red Blood Cell (RBC) Count 3.41 mill/uL (4.70-6.10); White Blood Cell (WBC) Count 8.8 thou/uL (4.8-10.8)
[2019-11-14 05:48] LABS: #Basophils 0.1 thou/uL (0.0-0.2); #Eosinphils 0.1 thou/uL (0.0-0.7); #Lymphocytes 2.2 thou/uL (1.20-3.40); #Monocytes 0.6 thou/uL (0.11-0.59); #Neutrophils 5.9 thou/uL (1.40-6.50); %Basophils 0.6 % (0.0-1.0); %Eosinophils 0.9 % (0.0-10.0); %Lymphocytes 24.7 % (21.0-51.0); %Monocytes 6.8 % (0.0-10.0); %Neutrophils 67.1 % (42.0-75.0); Anisocytosis SLIGHT = 6-15 cells (100X) (0-5/hpf); Elliptocytes SLIGHT = 2-5 cells (100X) (0-1/hpf); Hypochromia SLIGHT = 6-15 cells (100X) (0-5/hpf); MDiff Complete? YES; Microcytosis SLIGHT = 6-15 cells (100X) (0-5/hpf); Tear Drops SLIGHT = 2-5 cells (100X) (0-1/hpf)
--- NOTE | 2019-11-14 06:30 | PRG ---
DATE OF SERVICE: 11/13/2019 SUBJECTIVE: Mr. Mcduffie is without any abdominal pain today. He is actually tolerating a little bit of a diet. He has been seen by Surgery and Vascular Surgery. All are waiting for results of pathology to define treatment plan. He denies any overt abdominal pain today. Minimal rectal pain. MEDICATIONS: 1. Protonix. 2. Zofran. 3. Imdur. 4. Hydrocodone. 5. Plavix. 6. Carvedilol. 7. Atorvastatin. OBJECTIVE: VITAL SIGNS: Temperature is 98, pulse 75, and blood pressure 129/39. ABDOMEN: Soft, nontender. ASSESSMENT: 1. Rectal mass, likely malignant. Biopsies pending to determine whether it is rectal or anal. 2. Fistulas in the perianal tissues, currently no abscesses. Managed by Surgery presently. 3. Concern for possible mesenteric ischemia with abdominal pain and weight loss, this could just as well be from his cancer. There are thoughts about placing a stent for SMA occlusion. However, there are no signs of acute ischemia right now and again plans are on hold until the pathology is back. RECOMMENDATIONS: I will follow along with you over the weekend as needed. Otherwise, we will follow up on biopsies on Saturday. Job ID: [id number]
[2019-11-14] MEDS: Carvedilol 3.125 MG TAB PO SCH ×2 (08:12→17:22)
[2019-11-14] MEDS: Aspirin 81 mg Enteric Coated Tablet PO SCH (08:12)
[2019-11-14] MEDS: Isosorbide Mononitrate (ER) 30 MG TAB PO SCH (08:12)
[2019-11-14] MEDS: Clopidogrel Bisulfate 75 MG TAB PO SCH (08:13)
--- NOTE | 2019-11-14 10:00 | PDOC.HOSPP ---
- Subjective Encounter Date: 11/14/19 Encounter Time: 09:00 Subjective: Patient seen and examined for gen weakness/rectal mass. No N/V and abd pain now. No BM overnight. No new complaints. No overnight events - Objective Vital Signs & Weight: Vital Signs (12 hours) Temp Pulse Resp BP Pulse Ox 11/14/19 07:57 98.4 F 78 16 129/56 L 96 11/14/19 03:28 98.0 F 80 16 127/55 L 97 11/13/19 23:10 99.2 F 88 16 158/56 H 98 Weight Weight 132 lb 7 oz I&O: 11/13/19 11/14/19 11/15/19 06:59 06:59 06:59 Intake Total 150 3010 Output Total 350 Balance 150 2660 Result Diagrams: 11/14/19 04:55 11/14/19 04:55 Hospitalist ROS - Review of Systems Respiratory: denies: cough, dry, shortness of breath, hemoptysis, SOB with excertion, pleuritic pain, sputum, wheezing, other Cardiovascular: denies: chest pain, palpitations, orthopnea, paroxysmal noc. dyspnea, edema, light headedness, other - Medication Medications: Active Medications Generic Name Dose Route Start Last Admin Trade Name Freq PRN Reason Stop Dose Admin Acetaminophen 650 mg 11/10/19 19:02 11/13/19 01:10 Tylenol PO 650 mg Q4H PRN Administration Headache/Fever/Mild Pain (1-3) Hydrocodone Bitart/Acetaminophen 1 tab 11/10/19 19:02 11/13/19 20:22 [place] 7.5/325 PO 1 tab Q8H PRN Administration Moderate Pain (4-6) Aspirin 81 mg 11/13/19 09:00 11/14/19 08:12 Ecotrin PO 81 mg DAILY RG Administration Atorvastatin Calcium 20 mg 11/10/19 21:00 11/13/19 20:23 Lipitor PO 20 mg HS RG Administration Carvedilol 3.125 mg 11/13/19 17:00 11/14/19 08:12 Coreg PO 3.125 mg BID-WM RG Administration Clopidogrel Bisulfate 75 mg 11/13/19 09:00 11/14/19 08:13 Plavix PO 75 mg DAILY RG Administration Sodium Chloride 1,000 mls @ 75 mls/hr 11/10/19 20:45 11/14/19 06:10 Normal Saline 0.9% IV 1,000 mls .[id number] RG Administration Isosorbide Mononitrate 30 mg 11/11/19 09:00 11/14/19 08:12 Imdur Er PO 30 mg DAILY RG Administration Losartan Potassium 50 mg 11/11/19 09:00 11/13/19 10:09 Cozaar PO Not Given DAILY RG Morphine Sulfate 2 mg 11/13/19 21:34 11/13/19 23:31 Morphine SLOW IVP 2 mg Q4H PRN Administration Breakthrough Pain Pantoprazole Sodium 40 mg 11/13/19 09:00 11/14/19 08:12 Protonix PO 40 mg DAILY RG Administration Sodium Chloride 10 ml 11/11/19 21:00 11/14/19 08:13 Flush - Normal Saline IVF 10 ml Q12HR RG Administration - Exam General Appearance: NAD Heart: RRR, no gallops Respiratory: no wheezes, no ronchi Gastrointestinal: non-tender, non-distended, normal bowel sounds Extremities: no cyanosis, no clubbing Hosp A/P - Plan DVT proph w/SCDs Gen weakness Acute on chronic anemia due to GI blood loss s/p EGD/Colon Rectal mass Weight loss prob due to undiagnosed malignancy Mesenteric ischemia - on ASA/Plavix Perirectal fistula CAD/CABG Pancreatic 6mm hypodensity - outpatient pancreatic MRI recommended in 6 months MARTHA on CKD III HTN HLD Campylobacter/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
[2019-11-14] MEDS: Atorvastatin Calcium 20 MG TAB PO SCH (20:17)
[2019-11-15 05:39] LABS: Hemoglobin 7.4 g/dL (14.0-18.0)
[2019-11-15] MEDS: Clopidogrel Bisulfate 75 MG TAB PO SCH (08:05)
[2019-11-15] MEDS: Carvedilol 3.125 MG TAB PO SCH ×2 (08:05→18:10)
[2019-11-15] MEDS: Isosorbide Mononitrate (ER) 30 MG TAB PO SCH (08:05)
[2019-11-15] MEDS: Aspirin 81 mg Enteric Coated Tablet PO SCH (08:05)
--- NOTE | 2019-11-15 09:29 | PRG ---
DATE OF SERVICE: 11/15/2019 SUBJECTIVE: Mr. Mcduffie has no complaints today. OBJECTIVE: VITAL SIGNS: He is afebrile, and his vital signs are stable. ABDOMEN: Stable. LABORATORY DATA: Pathology pending on his perineal rectal biopsies. ASSESSMENT: Rectal mass. PLAN: Await biopsy results to determine next step for his treatment plan. Job ID: [id number]
[2019-11-15] MEDS: Sodium Chloride 0.9% 1,000 ML IV SCH (10:00)
--- NOTE | 2019-11-15 10:01 | PDOC.HOSPP ---
- Subjective Encounter Date: 11/15/19 Encounter Time: 09:30 Subjective: Patient seen and examined for gen weakness/Anemia. No new GI bleeding. No new complaints. No overnight events - Objective Vital Signs & Weight: Vital Signs (12 hours) Temp Pulse Resp BP Pulse Ox 11/15/19 07:11 98.4 F 82 14 124/58 L 97 11/15/19 03:46 99 F 77 16 132/51 L 98 11/14/19 23:37 100 F H 86 16 158/56 H 95 Weight Weight 132 lb 7 oz I&O: 11/14/19 11/15/19 11/16/19 06:59 06:59 06:59 Intake Total 3010 2691 Output Total 350 450 Balance 2660 2241 Result Diagrams: 11/15/19 04:57 11/14/19 04:55 Hospitalist ROS - Review of Systems Respiratory: denies: cough, dry, shortness of breath, hemoptysis, SOB with excertion, pleuritic pain, sputum, wheezing, other Cardiovascular: denies: chest pain, palpitations, orthopnea, paroxysmal noc. dyspnea, edema, light headedness, other Gastrointestinal: denies: nausea, vomiting, abdominal pain, diarrhea, constipation, melena, hematochezia, other - Medication Medications: Active Medications Generic Name Dose Route Start Last Admin Trade Name Freq PRN Reason Stop Dose Admin Acetaminophen 650 mg 11/10/19 19:02 11/13/19 01:10 Tylenol PO 650 mg Q4H PRN Administration Headache/Fever/Mild Pain (1-3) Hydrocodone Bitart/Acetaminophen 1 tab 11/10/19 19:02 11/13/19 20:22 [place] 7.5/325 PO 1 tab Q8H PRN Administration Moderate Pain (4-6) Aspirin 81 mg 11/13/19 09:00 11/15/19 08:05 Ecotrin PO 81 mg DAILY RG Administration Atorvastatin Calcium 20 mg 11/10/19 21:00 11/14/19 20:17 Lipitor PO 20 mg HS RG Administration Carvedilol 3.125 mg 11/13/19 17:00 11/15/19 08:05 Coreg PO 3.125 mg BID-WM RG Administration Clopidogrel Bisulfate 75 mg 11/13/19 09:00 11/15/19 08:05 Plavix PO 75 mg DAILY RG Administration Sodium Chloride 1,000 mls @ 30 mls/hr 11/14/19 09:59 11/14/19 10:00 Normal Saline 0.9% IV Not Given .Q24H RG Isosorbide Mononitrate 30 mg 11/11/19 09:00 11/15/19 08:05 Imdur Er PO 30 mg DAILY RG Administration Losartan Potassium 50 mg 11/11/19 09:00 11/13/19 10:09 Cozaar PO Not Given DAILY RG Morphine Sulfate 2 mg 11/13/19 21:34 11/13/19 23:31 Morphine SLOW IVP 2 mg Q4H PRN Administration Breakthrough Pain Pantoprazole Sodium 40 mg 11/13/19 09:00 11/15/19 08:05 Protonix PO 40 mg DAILY RG Administration Sodium Chloride 10 ml 11/11/19 21:00 11/15/19 08:06 Flush - Normal Saline IVF 10 ml Q12HR RG Administration - Exam General Appearance: NAD Heart: RRR, no gallops Respiratory: no wheezes, no ronchi Gastrointestinal: soft, non-tender, non-distended, normal bowel sounds Extremities: no cyanosis Hosp A/P - Plan DVT proph w/SCDs Gen weakness - multifactorial Acute on chronic anemia due to GI blood loss s/p EGD/Colon Rectal mass - s/p biopsy Weight loss prob due to undiagnosed malignancy Mesenteric ischemia - on ASA/Plavix Perirectal fistula CAD/CABG Pancreatic 6mm hypodensity - outpatient pancreatic MRI recommended in 6 months MARTHA on CKD III HTN HLD 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
[2019-11-15] MEDS: Polyethylene Glycol 3350 17 GM Packet PO SCH (20:04)
[2019-11-15] MEDS: Atorvastatin Calcium 20 MG TAB PO SCH (20:09)
[2019-11-16 06:18] LABS: #Eosinphils 0.2 thou/uL (0.0-0.7); #Lymphocytes 2.6 thou/uL (1.20-3.40); #Monocytes 0.6 thou/uL (0.11-0.59); #Neutrophils 5.3 thou/uL (1.40-6.50); %Basophils 0.4 % (0.0-1.0); %Lymphocytes 29.9 % (21.0-51.0); %Monocytes 6.6 % (0.0-10.0); Hemoglobin 7.9 g/dL (14.0-18.0); Mean Corpuscular HGB CONC 29.3 g/dL (32.0-36.0); Mean Corpuscular Hemoglobin 21.9 pg (27.0-31.0); Mean Corpuscular Volume 74.9 fL (78.0-98.0); Mean Platelet Volume 9.6 fL (7.4-10.4); Platelet Count 246 thou/uL (130-400); RBC Distribution Width 22.7 % (11.5-14.5); Red Blood Cell (RBC) Count 3.61 mill/uL (4.70-6.10); White Blood Cell (WBC) Count 8.8 thou/uL (4.8-10.8)
[2019-11-16 06:31] LABS: Albumin 1.8 g/dL (3.4-4.8); Anion Gap 9 mmol/L (10-20); BUN (Urea Nitrogen) 9 mg/dL (8.4-25.7); BUN/Creatinine Ratio 10.59; Calc. Creatinine Clearance 63 mL/min (70-130); Calcium 7.2 mg/dL (7.8-10.44); Carbon Dioxide 24 mmol/L (23-31); Chloride 107 mmol/L (98-107); Estimated GFR-MDRD 88; Glucose 99 mg/dL (83-110); Phosphorus 2.1 mg/dL (2.3-4.7); Potassium 3.8 mmol/L (3.5-5.1); Sodium 136 mmol/L (136-145)
[2019-11-16] MEDS: Aspirin 81 mg Enteric Coated Tablet PO SCH (08:39)
[2019-11-16] MEDS: Carvedilol 3.125 MG TAB PO SCH ×2 (08:39→17:11)
[2019-11-16] MEDS: Clopidogrel Bisulfate 75 MG TAB PO SCH (08:39)
[2019-11-16] MEDS: Isosorbide Mononitrate (ER) 30 MG TAB PO SCH (08:40)
--- NOTE | 2019-11-16 10:51 | PDOC.HOSPP ---
- Subjective Encounter Date: 11/16/19 Encounter Time: 09:00 Subjective: no perineal pain or bleeding per patient feels better has not ambulated after hospitalization - Objective Vital Signs & Weight: Vital Signs (12 hours) Temp Pulse Resp BP Pulse Ox 11/16/19 08:36 97 11/16/19 07:07 98.5 F 75 16 167/61 H 97 11/16/19 03:15 98.8 F 78 16 151/59 H 94 L 11/15/19 23:21 99.5 F 74 16 136/56 L 96 Weight Weight 132 lb 7 oz I&O: 11/15/19 11/16/19 11/17/19 06:59 06:59 06:59 Intake Total 2691 1965 240 Output Total 450 1000 Balance 2241 965 240 Result Diagrams: 11/16/19 05:49 11/16/19 05:49 Hospitalist ROS - Medication Medications: Active Medications Generic Name Dose Route Start Last Admin Trade Name Freq PRN Reason Stop Dose Admin Acetaminophen 650 mg 11/10/19 19:02 11/13/19 01:10 Tylenol PO 650 mg Q4H PRN Administration Headache/Fever/Mild Pain (1-3) Aspirin 81 mg 11/13/19 09:00 11/16/19 08:39 Ecotrin PO 81 mg DAILY RG Administration Atorvastatin Calcium 20 mg 11/10/19 21:00 11/15/19 20:09 Lipitor PO 20 mg HS RG Administration Carvedilol 3.125 mg 11/13/19 17:00 11/16/19 08:39 Coreg PO 3.125 mg BID-WM RG Administration Isosorbide Mononitrate 30 mg 11/11/19 09:00 11/16/19 08:40 Imdur Er PO 30 mg DAILY RG Administration Pantoprazole Sodium 40 mg 11/13/19 09:00 11/16/19 08:40 Protonix PO 40 mg DAILY RG Administration Polyethylene Glycol 17 gm 11/15/19 21:00 11/15/19 20:04 Miralax PO Not Given HS RG Sodium Chloride 10 ml 11/11/19 21:00 11/16/19 08:40 Flush - Normal Saline IVF 10 ml Q12HR RG Administration - Exam General Appearance: awake alert Eye: PERRL, anicteric sclera ENT: no oropharyngeal lesions, moist mucosa Neck: supple, no JVD Heart: RRR, no murmur Respiratory: no wheezes, no rales Gastrointestinal: soft, non-tender, non-distended, normal bowel sounds Extremities: no cyanosis, no edema Neurological: cranial nerve grossly intact, no focal deficits Psychiatric: A&O x 3 Hosp A/P (1) Rectal carcinoma Code(s): C20 - MALIGNANT NEOPLASM OF RECTUM Status: Acute (2) Acute blood loss anemia Code(s): D62 - ACUTE POSTHEMORRHAGIC ANEMIA Status: Acute (3) Severe protein-calorie malnutrition Code(s): E43 - UNSPECIFIED SEVERE PROTEIN-CALORIE MALNUTRITION Status: Acute (4) Mesenteric ischemia Code(s): K55.9 - VASCULAR DISORDER OF INTESTINE, UNSPECIFIED Status: Chronic (5) CAD (coronary artery disease) Code(s): I25.10 - ATHSCL HEART DISEASE OF [place] CORONARY ARTERY W/O ANG PCTRS Status: Chronic Qualifiers: Coronary Disease-Associated Artery/Lesion type: bypass graft [place] vs. transplanted heart: [place] heart Associated angina: without angina Qualified Code(s): I25.810 - Atherosclerosis of coronary artery bypass graft(s) without angina pectoris (6) Carotid arterial disease Code(s): I77.9 - DISORDER OF ARTERIES AND ARTERIOLES, UNSPECIFIED Status: Chronic Qualifiers: Laterality: bilateral (7) Dyslipidemia Code(s): E78.5 - HYPERLIPIDEMIA, UNSPECIFIED Status: Chronic - Plan Has invasive adenocarcinoma of rectum, await surgical opinion, dc plavix in anticipation of surgery PT to mobilize as tolerated, was ambulating before admission. has low albumin has recieved 2 u prbc hemostable continue aspirin, lipitor, coreg, imdur ER, protonix echo shows good ef, has mod mitral regurg
--- NOTE | 2019-11-16 17:39 | PRG ---
DATE OF SERVICE: 11/16/2019 SUBJECTIVE: Mr. Mcduffie's rectal pain is better. He is eating. OBJECTIVE: VITAL SIGNS: Temperature is 98, blood pressure 151/59, respiratory rate 16. ABDOMEN: Soft, nontender. LABORATORY DATA: Hemoglobin 7.9, white count is 8.8, platelet count 246. CEA is 9.7. Pathology shows the rectal biopsies are poorly differentiated adenocarcinoma. ASSESSMENT: 1. Poorly differentiated adenocarcinoma of the rectum with extension from the anorectal verge to about 10 cm. 2. 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 This is likely related to the cancer. 3. Occluded superior mesenteric artery. It is unclear if this is contributory to his pain, although his pain is much better now. He does not seem to have pain with eating. 4. History of coronary artery disease, diabetes. RECOMMENDATIONS: 1. Reviewed with Dr. Boland that likely he is going to be treated with a diverting colostomy followed by radiation chemotherapy and then probably an APR in light of his disease. I think the diverting colostomy would be needed prior to treatment secondary to the fistulous disease in the pelvis and perirectal tissues as seen by on CT. Alternatively, if it is felt that it is not going to change his chemo and treatment and if Surgery feels that he is at low risk for abscess or infection formation, then they can just start treatment. Alternatively, an APR from the onset is an option. We will defer to Surgery and Radiation Oncology as well as Oncology. 2. I think that these issues probably should be dealt with while he is here or he will be back very soon. He has a near obstructing lesion. A treatment plan probably needs to be devised before he leaves the hospital or if he needs surgery, it needs to be done before he leaves the hospital. We will defer these decisions to the treating physicians. We will follow from a distance. If any questions, please do not hesitate to call me. Job ID: [id number]
[2019-11-16] MEDS: Polyethylene Glycol 3350 17 GM Packet PO SCH (20:23)
[2019-11-16] MEDS: Atorvastatin Calcium 20 MG TAB PO SCH (20:23)
--- NOTE | 2019-11-17 01:10 | CON ---
DATE OF CONSULTATION: 11/16/2019 REASON FOR CONSULTATION: Mr. 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 HISTORY OF PRESENT ILLNESS: Mr. Mcduffie was admitted for several months of having diarrhea and abdominal pain and problems with his hemorrhoids. He was having some rectal bleeding. He was also having some vomiting at that time and was losing weight with a 25-pound weight loss. He subsequently was brought to the emergency room where there was concern for possible perirectal fistula as well as a possible superior mesenteric artery occlusion. He has been seen by General surgery, Cardiovascular surgery, and Gastroenterology. It became apparent on exam that he had an anorectal mass with fistula formation. Dr. Garrido did a colonoscopy with biopsy returning as moderate to poorly differentiated adenocarcinoma. Dr. Dyer was contemplating a stent in his superior mesenteric artery given that he had plaquing on a CT scan in this area. However, plans for that have been put on hold until the decision was made regarding his treatment for his rectal cancer. His CT scan did show besides the anorectal mass, areas of fistula formation and gas formation and possible osteomyelitis of his coccyx. I have been asked to see him to discuss his treatment options. He does report that he is feeling weak and does think that he experienced a 25-pound weight loss in the last several months. He is no longer having any vomiting or abdominal pain. He was able to get out of bed and walk to the bathroom. He voices no other complaints. PAST MEDICAL HISTORY: 1. Hypertension. 2. Coronary artery disease, status post CABG. 3. Peripheral artery disease, status post left carotid endarterectomy. 4. Hypercholesterolemia. 5. He denies other medical or surgical problems. MEDICATIONS: 1. Lipitor. 2. Coreg. 3. Imdur. 4. Protonix. 5. MiraLAX. ALLERGIES: NO KNOWN MEDICAL ALLERGIES. SOCIAL HISTORY: He lives in town with his daughter. He has no cigarette or alcohol use. He is retired. FAMILY HISTORY: His mother in her 80s from a stroke. His father in his 80s from complications of diabetes. There is no family history of colon or rectal cancer. REVIEW OF SYSTEMS: A 12-point review of systems is otherwise negative. PHYSICAL EXAMINATION: VITAL SIGNS: Height 5 feet 4 inches, weight 132 pounds. GENERAL: He is alert and oriented and in no apparent distress. Karnofsky performance status is 50%. He is well developed and well nourished. EYES: Pupils equal, round, and reactive to light. Extraocular movements are intact. ENT: Oral cavity and oropharynx normal without lesion or erythema. Palate elevates symmetrically. Gingiva is intact. NECK: Supple without cervical or supraclavicular adenopathy. No thyromegaly. Larynx midline. LUNGS: Breathing nonlabored. Clear to auscultation and percussion. CARDIOVASCULAR: Heart regular rate and rhythm without murmur. No lower extremity edema. BACK: No tenderness on fist percussion of his spine. LYMPHATIC: No axillary or inguinal adenopathy. ABDOMEN: Bowel sounds present. Soft, nontender, nondistended without mass or hepatosplenomegaly. Liver percusses to normal size. Rectal is limited to inspection mostly. He has a large mass protruding through the anus. He has induration in the gluteal area around the perianal area. He has an obvious fistulous tract. On palpation of this area of induration, purulent discharge was expressed from the fistula tract. NEUROLOGIC: Cranial nerves 2 through 12 are grossly intact. Motor strength is 5/5 in both upper and lower extremities in all muscle groups tested. Gait was not tested. LABORATORY: Biopsy showed an invasive moderate to poorly differentiated adenocarcinoma. CBC revealed a white blood cell count of 8800 with a hemoglobin of 7.9, hematocrit of 27.0, and platelet count of 246,000. Chemistry group showed fairly normal electrolytes. His calcium was 7.2. Albumin was 1.8. CEA was elevated at 9.74. RADIOLOGIC DATA: CT scan of the abdomen and pelvis was personally reviewed. There was no evidence of distant metastatic disease. Again, he had plaquing of the celiac and superior mesenteric artery axis concerning for peripheral vascular disease. In the lower rectum/anal area is thickening of the rectum with areas of some gas formation and obvious fistula tract with a perirectal abscess. There is some possible erosion of the tip of the coccyx which was concerning for osteomyelitis. The areas of gas formation extend into the bulb of penis area concerning for involvement by malignancy. There is no evidence of adenopathy. ASSESSMENT: Mr. Mcduffie is a 74-year-old gentleman with a clinical stage IIC, T4b N0 M0 adenocarcinoma of the rectum which was moderate to poorly differentiated. PLAN: I had a long discussion with Mr. Mcduffie regarding his diagnosis, prognosis, prognostic factors, and treatment options. In the absence of distant metastatic disease, he does have potentially curable disease, but his performance status is somewhat decreased. Hopefully this is because of his perirectal abscesses/infection. He could potentially be treated with curative therapy, especially if we can get the infection under control. He would need to have the infection under control before he could be treated with chemotherapy and radiation. Dr. Boland has proposed that if he is going to undergo neoadjuvant therapy or any curative therapy at this point that he would have a colostomy to try and get control of the of the infection and eliminate the passage of stool through the anal area where the fistulas are. I think that would be a necessity. Hopefully, after that, he could get stronger and be a little more functional and improve his performance status. I explained to him that the standard curative therapy for this would be concurrent chemotherapy and radiation neoadjuvantly followed by surgical resection if he becomes resectable. He would almost certainly have to have a colostomy because of the involvement of the anus by his disease. He is not opposed to a colostomy if necessary. The logistics of radiation as well as the benefits and risks of treatment were discussed. The simulation and daily treatment procedure were discussed. Side effects would include but not be limited to skin reaction, fatigue, lower blood counts, diarrhea, tenesmus, burning and frequency with urination, and small risk of damage to his intestines or other structures, for which he will receive radiation therapy. Time was taken to answer all the questions regarding his treatment options. He does indicate a desire to pursue therapy if possible. Dr. Boland will evaluate him tomorrow and determine whether he is a candidate for colostomy. Once he has recovered from that, we can consider initiating his chemoradiotherapy, but again his perirectal infection will need to be under control before he could undergo immunosuppressive therapy. Thank you for this interesting consultation. Job ID: [id number]
[2019-11-17] MEDS ORDERED: cefOXitin Sodium/Dextrose,Iso 2 GM in Premix Bag 1 BAG IVPB SCH (09:00)
[2019-11-17] MEDS: Aspirin 81 mg Enteric Coated Tablet PO SCH (09:29)
[2019-11-17] MEDS: Isosorbide Mononitrate (ER) 30 MG TAB PO SCH (09:30)
[2019-11-17] MEDS: Carvedilol 3.125 MG TAB PO SCH ×2 (09:32→18:44)
[2019-11-17] MEDS ORDERED: Vecuronium 10 MG VIAL ONE (11:22)
[2019-11-17] MEDS ORDERED: Glycopyrrolate 0.2 MG/ML 5 ML SYRINGE ONE (11:22)
[2019-11-17] MEDS ORDERED: PHENYLEPHRINE-NS 100 MCG/ML 10 ML SYRINGE ONE (11:22)
[2019-11-17] MEDS ORDERED: Ondansetron PF 4 MG/2 ML Vial ONE (11:22)
[2019-11-17] MEDS ORDERED: Lidocaine 1% PF 5 ML VIAL ONE (11:22)
[2019-11-17] MEDS ORDERED: PROPOFOL 200 MG/20 ML VIAL ONE (11:22)
--- NOTE | 2019-11-17 11:31 | PDOC.GSPN ---
Surgery Progress Note: Subj - Subjective Narrative: Patient's pathology came back as poorly differentiated adenocarcinoma. He has been seen by Dr. Moore of radiation oncology and oncology has been consulted as well. He is on the discussion list for cancer conference tomorrow. I have spoken to the patient and to his daughter regarding his surgical options. He is not a candidate for chemotherapy or radiation until the infection in the perirectal area is controlled. I have recommended a laparoscopic diverting colostomy to divert the fecal stream and examination under anesthesia and drainage of the fistulas and abscesses. They are both in agreement with this plan. Inherent risks of surgery include but are not limited to bleeding, infection, risks of anesthesia, damage to nearby structures, and need for other procedures. If we are able to control the infection and the rectal cancer response to neoadjuvant therapy, he may become a candidate for an abdominal perineal resection. Currently he is not a candidate since he does not have enough healthy tissue to close the pelvic floor. He is aware that if he does not tolerate chemotherapy and radiation or if he develops metastatic disease that surgical resection for cure may not be possible. He understands that the colostomy will be permanent. I did consider placing a Mediport under the same anesthesia, but have decided to defer this due to risk of infection with the active perirectal issues. After I get a better idea of what the extent of infection of the perirectal area is, he may be able to be treated with oral antibiotics or he may require a PICC line for IV antibiotics. I will ask the hospitalist to consult Dr. Ram for his recommendations. The patient asked appropriate questions and these were all answered. After the surgery, Dr. Dyer can proceed with angioplasty and stenting at his discretion, as the patient will not be returning to the operating room for many months. Surgery Progress Note: Obj - Vital signs Vital signs: Vital Signs - Most Recent Temp Pulse Resp BP Pulse Ox 98.3 F 81 16 137/61 96 11/17/19 07:27 11/17/19 07:27 11/17/19 07:27 11/17/19 07:27 11/17/19 07:27 Surgery Progress Note: Results - Labs Result Diagrams: 11/16/19 05:49 11/16/19 05:49
--- NOTE | 2019-11-17 15:43 | PDOC.HOSPP ---
- Subjective Encounter Date: 11/17/19 Encounter Time: 10:30 Subjective: pt up in bed no complains. - Objective Vital Signs & Weight: Vital Signs (12 hours) Temp Pulse Resp BP Pulse Ox 11/17/19 11:16 97.9 F 65 16 147/70 H 97 11/17/19 07:27 98.3 F 81 16 137/61 96 11/17/19 03:57 98.3 F 71 16 137/61 97 Weight Weight 132 lb 7 oz I&O: 11/16/19 11/17/19 11/18/19 06:59 06:59 06:59 Intake Total 1965 1367 Output Total 1000 1100 Balance 965 267 Result Diagrams: 11/16/19 05:49 11/16/19 05:49 Hospitalist ROS - Review of Systems ENT: denies: ear pain, ear discharge, nose pain, nose discharge, nose congestion , mouth pain, mouth swelling, throat pain, throat swelling, other Respiratory: denies: cough, dry, shortness of breath, hemoptysis, SOB with excertion, pleuritic pain, sputum, wheezing, other Cardiovascular: denies: chest pain, palpitations, orthopnea, paroxysmal noc. dyspnea, edema, light headedness, other - Medication Medications: Active Medications Generic Name Dose Route Start Last Admin Trade Name Freq PRN Reason Stop Dose Admin Acetaminophen 650 mg 11/10/19 19:02 11/13/19 01:10 Tylenol PO 650 mg Q4H PRN Administration Headache/Fever/Mild Pain (1-3) Aspirin 81 mg 11/13/19 09:00 11/17/19 09:29 Ecotrin PO Not Given DAILY [facility] Atorvastatin Calcium 20 mg 11/10/19 21:00 11/16/19 20:23 Lipitor PO 20 mg HS RG Administration Carvedilol 3.125 mg 11/13/19 17:00 11/17/19 09:32 Coreg PO 3.125 mg BID-WM RG Administration Isosorbide Mononitrate 30 mg 11/11/19 09:00 11/17/19 09:30 Imdur Er PO Not Given DAILY RG Pantoprazole Sodium 40 mg 11/13/19 09:00 11/17/19 09:30 Protonix PO Not Given DAILY [facility] Polyethylene Glycol 17 gm 11/15/19 21:00 05/11/20 20:23 Miralax PO Not Given HS RG Sodium Chloride 10 ml 11/11/19 21:00 11/17/19 09:32 Flush - Normal Saline IVF 10 ml Q12HR RG Administration - Exam ENT: negative: normocephalic atraumatic, no oropharyngeal lesions, moist mucosa , dry oral mucosa Neck: negative: supple, symmetric, no JVD, no thyromegaly, no lymphadenopathy, no carotid bruit, JVD Heart: negative: RRR, no murmur, no gallops, no rubs, normal peripheral pulses, irregular, diminshed peripheral pulses, murmur present, II/IV, III/IV Respiratory: negative: CTAB, no wheezes, no rales, no ronchi, normal chest expansion, no tachypnea, normal percussion, rales, rhonchi, tachypneic, wheezes Gastrointestinal: negative: soft, non-tender, non-distended, normal bowel sounds , no palpable masses, no hepatomegaly, no splenomegaly, no bruit, no guarding, no rigidity, tender to palpation, distended, diminished bowl sounds, voluntary guarding Hosp A/P - Plan Hosp A/P (1) Rectal carcinoma Code(s): C20 - MALIGNANT NEOPLASM OF RECTUM Status: Acute (2) Acute blood loss anemia Code(s): D62 - ACUTE POSTHEMORRHAGIC ANEMIA Status: Acute (3) Severe protein-calorie malnutrition Code(s): E43 - UNSPECIFIED SEVERE PROTEIN-CALORIE MALNUTRITION Status: Acute (4) Mesenteric ischemia Code(s): K55.9 - VASCULAR DISORDER OF INTESTINE, UNSPECIFIED Status: Chronic (5) CAD (coronary artery disease) Code(s): I25.10 - ATHSCL HEART DISEASE OF [place] CORONARY ARTERY W/O ANG PCTRS Status: Chronic Qualifiers: Coronary Disease-Associated Artery/Lesion type: bypass graft [place] vs. transplanted heart: [place] heart Associated angina: without angina Qualified Code(s): I25.810 - Atherosclerosis of coronary artery bypass graft(s) without angina pectoris (6) Carotid arterial disease Code(s): I77.9 - DISORDER OF ARTERIES AND ARTERIOLES, UNSPECIFIED Status: Chronic Qualifiers: Laterality: bilateral (7) Dyslipidemia Code(s): E78.5 - HYPERLIPIDEMIA, UNSPECIFIED Status: Chronic - Plan Has invasive adenocarcinoma of rectum, await surgical opinion, dc plavix in anticipation of surgery PT to mobilize as tolerated, was ambulating before admission. has low albumin has recieved 2 u prbc hemostable continue aspirin, lipitor, coreg, imdur ER, protonix echo shows good ef, has mod mitral regurg / pt going for surgery today. hh is low stable.
[2019-11-17] MEDS ORDERED: Lidocaine 1% w/Epinephrine 1:100K 20 ML VIAL ONE (15:59)
[2019-11-17] MEDS ORDERED: Bupivacaine 0.25% HCL 30 ML VIAL ONE (15:59)
[2019-11-17] MEDS ORDERED: Lidocaine 2% PF 5 ML VIAL ONE (15:59)
[2019-11-17] MEDS ORDERED: Fentanyl 250 MCG/5 ML VIAL ONE (16:05)
[2019-11-17] MEDS ORDERED: Lidocaine 2% Jelly 5 ML TUBE ONE (19:10)
[2019-11-17] MEDS ORDERED: Promethazine HCl 25 MG/ML VIAL IM PRN (19:30)
[2019-11-17] MEDS ORDERED: Promethazine HCl 25 MG/ML VIAL SLOW IVP PRN (19:30)
[2019-11-17] MEDS ORDERED: Ondansetron HCl/PF 4 MG/2 ML Vial IVP PRN (19:30)
[2019-11-17] MEDS: Atorvastatin Calcium 20 MG TAB PO SCH (21:08)
[2019-11-17] MEDS: Polyethylene Glycol 3350 17 GM Packet PO SCH (21:08)
[2019-11-17] MEDS ORDERED: traMADol HCl 50 MG TAB PO PRN ×2 (22:22)
[2019-11-17] MEDS ORDERED: HYDROcodone/Acetaminophen 7.5/325 mg Tablet PO PRN (22:22)
[2019-11-17] MEDS ORDERED: Morphine 2 MG/ML SYRINGE SLOW IVP PRN (22:22)
[2019-11-17] MEDS ORDERED: Ibuprofen 200 MG TAB PO PRN ×2 (22:22)
[2019-11-17] MEDS ORDERED: Morphine 4 MG/ML VIAL SLOW IVP PRN (22:22)
[2019-11-17] MEDS: HYDROcodone/Acetaminophen 7.5/325 mg Tablet PO PRN (23:08)
[2019-11-17] MEDS: D5 1/2 NS w/20 mEq KCL 1,000 ML IV SCH (23:09)
[2019-11-17] MEDS: cefOXitin Sodium/Dextrose,Iso 2 GM in Premix Bag 1 BAG IVPB SCH (23:09)
[2019-11-17] MEDS ORDERED: cefOXitin 2 GM in Sodium Chloride 0.9% 100 ML IVPB SCH (23:59)
[2019-11-18] MEDS ORDERED: hydrALAZINE 20 MG/ML VIAL SLOW IVP SCH (01:30)
--- NOTE | 2019-11-18 02:21 | OP ---
DATE OF PROCEDURE: 11/17/2019 PROCEDURES PERFORMED: Laparoscopic colostomy placement and incision and drainage of perirectal fistulas and abscesses. PREOPERATIVE DIAGNOSIS: Extensive rectal cancer with extension into perirectal tissues and fistula formation. POSTOPERATIVE DIAGNOSIS: Extensive rectal cancer with extension into perirectal tissues and fistula formation. HISTORY OF PRESENT ILLNESS: Mr. Mcduffie is a 74-year-old man with weight loss and perirectal drainage and diarrhea, who was found to have a locally advanced rectal cancer with erosion into the perirectal tissues. Recommendation was made to proceed with diversion and washout to try to gain control of the infection so that he can become a candidate for chemoradiation and later resection. DESCRIPTION OF PROCEDURE: After informed consent was obtained from the patient and his family and appropriate preoperative antibiotics were administered, he was taken to the operating room. He was placed in supine position and general anesthesia was administered. A Tavera catheter was placed to decompress the bladder. He was prepped and draped in standard sterile fashion. Local anesthesia was infused through skin and subcutaneous tissues at the level of the umbilicus. A transverse skin incision was made. The fascia was elevated and a Veress needle was placed into the abdominal cavity without difficulty. Opening pressure was less than 5 and carbon dioxide gas easily insufflated to an intraabdominal pressure of 15, which the patient tolerated well. The Veress needle was withdrawn and a 5 mm ClearView port advanced under direct vision into the abdominal cavity, which was examined. There was no evidence of metastatic deposits and the visible colon appeared normal. The small intestine appeared well perfused and viable. An additional dissecting port was placed in the right lower quadrant and a third port was placed at the planned location of the ostomy in the left lower quadrant through the rectus sheath just above the level of the border of the posterior rectus sheath. The sigmoid colon was mobilized medially by incising the white line of T[place]t and easily lifted up to the anterior abdominal wall. A window was created through the mesentery adjacent to the wall of the colon and a laparoscopic stapler was placed across the colon and fired. The colon was divided and the dissecting port in the right lower quadrant was removed and the fascia closed with a 0 Vicryl suture on a GraNee needle with excellent technical result. The left lower quadrant trocar was removed and a circular incision made at that port site. The skin and subcutaneous tissue were resected and the rectus sheath incised in a cruciate manner. The underlying rectus muscles were split and the posterior rectus sheath was incised and the tract dilated to allow the colon to be pulled out without tension. This was secured to the rectus sheath circumferentially with Lembert sutures and examined laparoscopically to ensure that the orientation was correct. The abdomen was desufflated through the umbilical trocar, which was then removed and the skin incisions closed with 4-0 Monocryl suture and dressed with Dermabond. Additional local anesthesia was infused at the colostomy site and the colostomy was matured by excising the stapled end and creating a white earth type ostomy by securing the edge of the dermis to the edge of the colon and Lembert sutures a few centimeters proximally in four quadrants and then securing the edge of the colon to the dermis circumferentially between these sutures. The colostomy was palpated and was patent through the level of the fascia. A colostomy appliance was placed and attention was turned to the perirectal area. The left perirectal area was extremely indurated and there were multiple fistulas visible with expressible pus. One fistula posteriorly was very superficial and was unroofed. The others extended for long distances along the perirectal tissues, but the internal opening could not be identified. [place] drains were placed to three such fistulous tract. The posterior rectum was completely eroded by the malignancy and the coccyx was palpable in the base of the wound with exposed bone. Due to its location, this could not be debrided as the approach was blocked by the intervening mass and the anal canal. Gelfoam with lidocaine was placed into the anal canal and external dressings were placed and secured with mesh nixon-pants. The patient was then extubated and taken to Recovery in good condition. ESTIMATED BLOOD LOSS: Minimal. COMPLICATIONS: There were no complications. SPECIMEN: There were no specimens. Job ID: [id number] [facility]
[2019-11-18] MEDS: cefOXitin Sodium/Dextrose,Iso 2 GM in Premix Bag 1 BAG IVPB SCH ×2 (08:19→16:45)
[2019-11-18] MEDS: Carvedilol 3.125 MG TAB PO SCH ×2 (08:19→17:35)
[2019-11-18] MEDS: Aspirin 81 mg Enteric Coated Tablet PO SCH (08:19)
[2019-11-18] MEDS: D5 1/2 NS w/20 mEq KCL 1,000 ML IV SCH ×2 (08:19→16:48)
[2019-11-18] MEDS: Isosorbide Mononitrate (ER) 30 MG TAB PO SCH (08:19)
[2019-11-18 10:14] LABS: Anion Gap 8 mmol/L (10-20); BUN (Urea Nitrogen) 9 mg/dL (8.4-25.7); Calc. Creatinine Clearance 46 mL/min (70-130); Calcium 7.6 mg/dL (7.8-10.44); Carbon Dioxide 26 mmol/L (23-31); Chloride 103 mmol/L (98-107); Estimated GFR-MDRD 62; Glucose 154 mg/dL (83-110); Magnesium 1.7 mg/dL (1.6-2.6); Phosphorus 3.3 mg/dL (2.3-4.7); Potassium 4.2 mmol/L (3.5-5.1); Sodium 133 mmol/L (136-145)
--- NOTE | 2019-11-18 11:21 | CON ---
DATE OF CONSULTATION: REASON FOR CONSULTATION: Rectal cancer. HISTORY OF PRESENT ILLNESS: Mr. Mcduffie is a 74-year-old male, who presented to the emergency room for diarrhea and abdominal pain. He had a recent 25-pound weight loss. He had rectal bleeding. He underwent a CT scan, which showed multiple rectal erosions with fistula formation. He had severe plaque in the splenic and common hepatic artery. He was seen by a Dr. Dyer GI, and the surgeon. He underwent a colonoscopy and biopsy confirmed a moderately to poorly differentiated adenocarcinoma. The decision was made to hold off on further treatment for his vascular disease, instead he was taken to the OR yesterday for a laparoscopic colostomy, and incision and drainage of a perirectal fistula and abscesses was performed. He had extensive rectal cancer that extended into the perirectal tissues. He has had 3 GAURANG drains placed and is on antibiotics. The hope is that these fistulas and infection will heal, so he can undergo treatment with chemoradiation and possible resection. He is resting comfortably at bedside. No complaints at this time. PAST MEDICAL HISTORY: 1. Hypertension. 2. Coronary artery disease. 3. Peripheral artery disease. 4. High cholesterol. PAST SURGICAL HISTORY: 1. CABG. 2. Carotid endarterectomy. ALLERGIES: NO KNOWN DRUG ALLERGIES. HOME MEDICATIONS: 1. Lipitor. 2. Coreg. 3. Imdur. 4. Protonix. 5. MiraLAX. 6. Aspirin. FAMILY HISTORY: No history of colorectal cancer. SOCIAL HISTORY: Lives with his daughter. No alcohol, tobacco, or illicit drug use. REVIEW OF SYSTEMS: Ten-point review of systems is negative. PHYSICAL EXAMINATION: VITAL SIGNS: Temperature is 97.9, pulse is 76, respiratory rate 18, blood pressure 116/50. He is 95% on room air. GENERAL: Slightly disheveled male, in no acute distress. HEENT: Normocephalic and atraumatic. NECK: Supple. CV: Regular rate and rhythm. LUNGS: Respirations are nonlabored. ABDOMEN: Soft and nontender. He has GAURANG drains in place from his perineum. NEUROLOGIC: Nonfocal. PERTINENT LABORATORY DATA AND X-RAYS: Hemoglobin 7.9, hematocrit 27, platelet count 246,000, 61% neutrophils, 30% lymphocytes. Sodium 133, potassium 4.2, chloride 103, CO2 is 26, BUN is 9, creatinine 1.15, glucose 154, calcium 7.6, phosphorus 3.3, magnesium 1.7, bilirubin 0.8, AST 14, ALT 7, and alkaline phosphatase is 73. BNP is 313. Serum total protein is 6, albumin 2.0, globulin 4. CEA is 9.74. Hepatitis panel is negative. ASSESSMENT: 1. 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 2. 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 DISCUSSION: The patient is recovering during colostomy with the hope that he will improve over the next several weeks. He needs neoadjuvant chemoradiation. He understands that this is a potential curative therapy. He will follow up in our clinic in 2 weeks to discuss treatment options with the oncologist. Case has been discussed with Dr. Powell. Thank you for the consult. We will be happy to take care of this gentleman. Job ID: [id number]
[2019-11-18 11:34] LABS: #Eosinphils 0.1 thou/uL (0.0-0.7); #Lymphocytes 1.9 thou/uL (1.20-3.40); #Monocytes 0.4 thou/uL (0.11-0.59); #Neutrophils 5.5 thou/uL (1.40-6.50); %Basophils 0.3 % (0.0-1.0); %Eosinophils 1.4 % (0.0-10.0); %Lymphocytes 24.1 % (21.0-51.0); %Monocytes 4.6 % (0.0-10.0); %Neutrophils 69.5 % (42.0-75.0); Band 11 % (5-11); Eosinophils 1 % (0-10); Hemoglobin 7.7 g/dL (14.0-18.0); Hypochromia SLIGHT = 6-15 cells (100X) (0-5/hpf); Lymphocytes 21 % (21-51); MDiff Complete? YES; Mean Corpuscular HGB CONC 29.8 g/dL (32.0-36.0); Mean Corpuscular Hemoglobin 22.2 pg (27.0-31.0); Mean Corpuscular Volume 74.4 fL (78.0-98.0); Mean Platelet Volume 8.3 fL (7.4-10.4); Microcytosis SLIGHT = 6-15 cells (100X) (0-5/hpf); Monocytes 3 % (0-10); Neutrophil 63 % (42-75); Ovalocytes SLIGHT = 2-5 cells (100X) (0-1/hpf); Platelet Count 267 thou/uL (130-400); Platelet Morphology Comment Appears Adequate; Polychromasia SLIGHT = 2-3 cells (100X) (0-2/hpf); Red Blood Cell (RBC) Count 3.46 mill/uL (4.70-6.10); White Blood Cell (WBC) Count 7.9 thou/uL (4.8-10.8)
--- NOTE | 2019-11-18 14:14 | PDOC.HOSPP ---
- Subjective Encounter Date: 11/18/19 Encounter Time: 10:00 Subjective: pt up in bed has some pain to his abdomen - Objective Vital Signs & Weight: Vital Signs (12 hours) Temp Pulse Resp BP Pulse Ox 11/18/19 11:24 98.5 F 79 20 120/49 L 96 11/18/19 08:58 97.9 F 76 18 116/50 L 95 11/18/19 04:00 98.6 F 80 18 126/63 92 L Weight Admit Weight 132 lb 6.88 oz Weight 132 lb 7 oz I&O: 11/17/19 11/18/19 11/19/19 06:59 06:59 06:59 Intake Total 1367 1000 Output Total 1100 625 Balance 267 375 Result Diagrams: 11/18/19 09:47 11/18/19 09:47 Hospitalist ROS - Review of Systems Cardiovascular: denies: chest pain, palpitations, orthopnea, paroxysmal noc. dyspnea, edema, light headedness, other Gastrointestinal: reports: abdominal pain Genitourinary: denies: dysuria, frequency, incontinence, hematuria, retention, other Musculoskeletal: denies: neck pain, shoulder pain, arm pain, back pain, hand pain, leg pain, foot pain, other - Medication Medications: Active Medications Generic Name Dose Route Start Last Admin Trade Name Freq PRN Reason Stop Dose Admin Acetaminophen 650 mg 11/10/19 19:02 11/13/19 01:10 Tylenol PO 650 mg Q4H PRN Administration Headache/Fever/Mild Pain (1-3) Hydrocodone Bitart/Acetaminophen 1 tab 11/17/19 22:22 11/17/19 23:08 [place] 7.5/325 PO 1 tab Q4H PRN Administration Mild Pain (1-3) Aspirin 81 mg 11/13/19 09:00 11/18/19 08:19 Ecotrin PO 81 mg DAILY RG Administration Atorvastatin Calcium 20 mg 11/10/19 21:00 11/17/19 21:08 Lipitor PO Not Given HS RG Carvedilol 3.125 mg 11/13/19 17:00 11/18/19 08:19 Coreg PO 3.125 mg BID-WM RG Administration Potassium Chloride/Dextrose/Sod Cl 1,000 mls @ 120 mls/hr 11/17/19 22:30 08:19 D5 1/2 Ns W/20 Meq Kcl IV 1,000 mls .Q8H20M RG Administration Cefoxitin Sodium/Dextrose 2 gm 50 mls @ 50 mls/hr 11/17/19 23:59 11/18/19 08: 19 / Device IVPB 50 mls 0800,1600,2359 RG Administration Isosorbide Mononitrate 30 mg 11/11/19 09:00 11/18/19 08:19 Imdur Er PO 30 mg DAILY RG Administration Morphine Sulfate 4 mg 11/17/19 22:22 11/17/19 23:08 Morphine SLOW IVP 4 mg Q4H PRN Administration BREAKTHRU Mod-SeV Pain (6-10) Pantoprazole Sodium 40 mg 11/13/19 09:00 11/18/19 08:19 Protonix PO 40 mg DAILY RG Administration Polyethylene Glycol 17 gm 11/15/19 21:00 11/17/19 21:08 Miralax PO Not Given HS RG Sodium Chloride 10 ml 11/11/19 21:00 11/18/19 08:20 Flush - Normal Saline IVF Not Given Q12HR RG - Exam Neck: negative: supple, symmetric, no JVD, no thyromegaly, no lymphadenopathy, no carotid bruit, JVD Heart: negative: RRR, no murmur, no gallops, no rubs, normal peripheral pulses, irregular, diminshed peripheral pulses, murmur present, II/IV, III/IV Respiratory: negative: CTAB, no wheezes, no rales, no ronchi, normal chest expansion, no tachypnea, normal percussion, rales, rhonchi, tachypneic, wheezes Gastrointestinal: soft, non-tender Gastrointestinal - other findings: colostomy to Q Hosp A/P - Plan Hosp A/P (1) Rectal carcinoma Code(s): C20 - MALIGNANT NEOPLASM OF RECTUM Status: Acute (2) Acute blood loss anemia Code(s): D62 - ACUTE POSTHEMORRHAGIC ANEMIA Status: Acute (3) Severe protein-calorie malnutrition Code(s): E43 - UNSPECIFIED SEVERE PROTEIN-CALORIE MALNUTRITION Status: Acute (4) Mesenteric ischemia Code(s): K55.9 - VASCULAR DISORDER OF INTESTINE, UNSPECIFIED Status: Chronic (5) CAD (coronary artery disease) Code(s): I25.10 - ATHSCL HEART DISEASE OF [place] CORONARY ARTERY W/O ANG PCTRS Status: Chronic Qualifiers: Coronary Disease-Associated Artery/Lesion type: bypass graft [place] vs. transplanted heart: [place] heart Associated angina: without angina Qualified Code(s): I25.810 - Atherosclerosis of coronary artery bypass graft(s) without angina pectoris (6) Carotid arterial disease Code(s): I77.9 - DISORDER OF ARTERIES AND ARTERIOLES, UNSPECIFIED Status: Chronic Qualifiers: Laterality: bilateral (7) Dyslipidemia Code(s): E78.5 - HYPERLIPIDEMIA, UNSPECIFIED Status: Chronic - Plan Has invasive adenocarcinoma of rectum, await surgical opinion, dc plavix in anticipation of surgery PT to mobilize as tolerated, was ambulating before admission. has low albumin has recieved 2 u prbc hemostable continue aspirin, lipitor, coreg, imdur ER, protonix echo shows good ef, has mod mitral regurg 11/16 pt going for surgery today. hh is low stable. 11/17 s/p laparoscopic colostomy placement and incision and drainage of perirectal fistulas and abscesses. pt is on cefoxtin. oncology consulted.
--- NOTE | 2019-11-18 16:47 | PDOC.GSPN ---
Surgery Progress Note: Subj - Subjective Narrative: Patient is feeling okay. He is having the expected postoperative pain but this is tolerable. No colostomy output yet. No nausea or vomiting however. Vital signs look okay. His colostomy is healthy with expected postoperative edema. Assessment/plan: Locally advanced rectal cancer with fistula formation and exposed coccyx. He is doing well status post diverting colostomy and drainage of perirectal abscesses/fistulas. Continue with full liquid diet until colostomy has output. I discussed operative findings with the patient and his daughter. His case was discussed at cancer conference today and the oncologist are going to see him. He will likely require chemotherapy and radiation with reevaluation for surgical options after completing that course of treatment. Even if he does not become a surgical candidate, which he is not at this point due to the extensive disease, he can still be treated with suppressive chemotherapy. The oncologist and radiation oncologist are in agreement with me that he should proceed with management of his mesenteric vascular disease as planned by Dr. Dyer as this is the more immediately life-threatening problem. Surgery Progress Note: Obj - Vital signs Vital signs: Vital Signs - Most Recent Temp Pulse Resp BP Pulse Ox 97.2 F L 80 16 122/43 L 95 11/18/19 15:56 11/18/19 15:56 11/18/19 15:56 11/18/19 15:56 11/18/19 15:56 Surgery Progress Note: Results - Labs Result Diagrams: 11/18/19 09:47 11/18/19 09:47 Lab results: Laboratory Results - last 24 hr 11/18/19 11/18/19 09:47 09:47 WBC 7.9 RBC 3.46 L Hgb 7.7 L Hct 25.8 L MCV 74.4 L MCH 22.2 L MCHC 29.8 L RDW 23.0 H Plt Count 267 MPV 8.3 Neutrophils % 69.5 Neutrophils % (Manual) 63 Band Neuts % (Manual) 11 Lymphocytes % 24.1 Lymphocytes % (Manual) 21 Monocytes % 4.6 Monocytes % (Manual) 3 Eosinophils % 1.4 Eosinophils % (Manual) 1 Basophils % 0.3 Basophils % (Manual) 1 Neutrophils # 5.5 Lymphocytes # 1.9 Monocytes # 0.4 Eosinophils # 0.1 Basophils # 0.0 Hypochromia SLIGHT = 6-15 cells Plt Morphology Comment Appears Adequate Polychromasia SLIGHT = 2-3 cells Microcytosis SLIGHT = 6-15 cells Ovalocytes SLIGHT = 2-5 cells Sodium 133 L Potassium 4.2 Chloride 103 Carbon Dioxide 26 Anion Gap 8 L BUN 9 Creatinine 1.15 Estimated GFR (MDRD) 62 Glucose 154 H Calcium 7.6 L Phosphorus 3.3 Magnesium 1.7
[2019-11-18] MEDS: Polyethylene Glycol 3350 17 GM Packet PO SCH (21:13)
[2019-11-18] MEDS: Atorvastatin Calcium 20 MG TAB PO SCH (21:13)
--- NOTE | 2019-11-18 22:48 | CON ---
DATE OF CONSULTATION: 11/18/2019 REASON: Rectal cancer with local invasion and perirectal fistulas as well as coccygeal exposure. HISTORY OF PRESENT ILLNESS: A 74-year-old who has a history of coronary artery disease with previous bypass graft surgery in and then endarterectomy in 2019 , who presented with a 3-month history of intermittent rectal bleeding associated with some pain and sensation of a nodular structure in the perianal region. Patient felt that it was due to hemorrhoids and he applied Preparation-H with some improvement but persistence of the symptoms. He delayed consulting with a physician and eventually saw Dr. Covarrubias, who proceeded to admit him to the hospital. Patient had an endoscopy by Dr. Garrido on the , who demonstrated a circumferential rectal mass protruding from the anal area extending from the anorectal verge. Biopsies confirmed locally invasive and undifferentiated adenocarcinoma. Patient had an abdomen and pelvis CT which demonstrated ground-glass opacities in superior segment of left lower lobe, multiple rectal erosions with left perirectal fistulas to the left gluteal fold along the sinus tracts to the mesorectal fascia, presacral space, and near at the base of the penis. There was also remodelling of the coccyx suggesting underlying osteomyelitis. Patient underwent diverting colostomy on November 16 as well as incision and drainage of the perirectal fistulas and abscesses. The operative report was reviewed and the colostomy proceeded in the usual fashion. After that, the left perirectal area was approached and was felt to be very indurated with multiple fistulae visible with expressible pus. One fistula was unroofed, the others extended for long distances along the perirectal tissues. Internal opening could not be identified. Niles drains were placed to the three of those fistulous tracts. The posterior rectum was completely eroded by the malignancy. The coccyx was palpable at the base of the wound with exposed bone. Currently, Mr. Mcduffie has [id number] pain in the perirectal area, perianal area. Denies any headaches, visual symptoms, sore throat, odynophagia, or dysphagia. No dyspnea or chest pain. No abdominal pain. He is voiding without difficulty. No neurological symptoms. MEDICAL HISTORY: Ischemic heart disease with prior bypass graft surgery, peripheral vascular disease with endarterectomy, hemorrhoids or what the patient felt to represent hemorrhoids, and hypertension. FAMILY HISTORY: Noncontributory. 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 Lives in [place]. Never smoker. ALLERGIES: NONE. CURRENT MEDICATIONS: 1. Gould. 2. Ecotrin. 3. Lipitor. 4. Cefoxitin. 5. Motrin and/or morphine. 6. Ondansetron. 7. MiraLAX. PHYSICAL EXAMINATION: VITAL SIGNS: T-max 100, now he has been for quite a few days; BP 120/49, pulse 79, respirations 18 to 20, and O2 saturation 96. SKIN: Shows the perianal area with a fistulous drainage. Niles drains wrapped around those areas. Patient has a colostomy in place with a healthy appearance in the left lower quadrant area. Peripheral IV access. He has an indwelling Tavera catheter. He appears in no distress. HEENT: Ocular movements conjugate. Sclerae white. Pupils are equal. Conjunctivae normal. Oral cavity, with quite a few teeth in place with quite a bit of decay and gum disease. NECK: Supple. No jugular vein distention. LUNGS: Symmetric. Clear breath sounds. HEART: S1 and S2. Regular rate. ABDOMEN: Soft. Nondistended or tender. No bladder distention. GENITAL EVALUATION: Not particularly remarkable. RECTAL: He does have the area of induration in the left side of his perianal region. The area is still quite tender and I could not examine it properly. He does have protruding hemorrhoids, what appears to be hemorrhoids. EXTREMITIES: There is no joint inflammatory process noted. No edema. Pulses are 1+ in dorsalis pedis. Plantar responses are flexor. No clonus. NEUROLOGIC: He is awake, oriented, follows commands. LABORATORY DATA: White cell count is 12.6, now is 7.9; hemoglobin 7.7; and platelets 267 with a normal differential. Sodium 133, creatinine 1.15, and glucose 154. Transaminases normal. Microbiology with negative Clostridium difficile. Blood cultures, no growth. Final results, Campylobacter antigen was positive. Shiga toxin was negative. IMAGING STUDIES: Included the abdomen and pelvis CT that we described above. ASSESSMENT: Ischemic heart disease with prior bypass graft surgery, hypertension, and advanced locally invasive rectal cancer with involvement of the coccyx as well as invading the posterior rectal tissues with perirectal fistulas protruding towards the perianal region, particularly left side and perirectal abscesses which have been drained by Dr. Boland. Patient has had a diverting colostomy now. DISCUSSION: He probably would be a candidate for adjuvant chemoradiation therapy. I do not know if he would be a candidate for resection after that, but in terms of management of infectious process, most of the management entails drainage of the abscesses, short term administration of antimicrobial is an ancillary measure frequently added to this therapeutic process but not the primary intervention. Evidently, if there is a lot of cellulitis, antimicrobials help with control of that process. I do not think that there is evidence of a lot of necrosis right now. The coccyx will likely have to be resected down the road if he becomes eligible for surgical intervention. Antimicrobial therapy will not allow control of coccygeal of osteomyelitis. Evidently, he will be at risk for a more invasive infectious processes which might require treatment in the future. I think we can switch him to oral combination of quinolone and Flagyl for discharge planning, maybe for a week or so. Augmentin would be an alternate combination as well. Job ID: [id number] MTDD
[2019-11-19] MEDS: cefOXitin Sodium/Dextrose,Iso 2 GM in Premix Bag 1 BAG IVPB SCH ×4 (00:10→23:35)
[2019-11-19] MEDS: D5 1/2 NS w/20 mEq KCL 1,000 ML IV SCH ×3 (00:11→16:45)
[2019-11-19] MEDS: Isosorbide Mononitrate (ER) 30 MG TAB PO SCH (08:30)
[2019-11-19] MEDS: Carvedilol 3.125 MG TAB PO SCH ×2 (08:30→16:47)
[2019-11-19] MEDS: Aspirin 81 mg Enteric Coated Tablet PO SCH (08:30)
--- NOTE | 2019-11-19 12:05 | PDOC.MOPN ---
Interval History: mild rectal pain. Tolerating liquid diet. - Vital Signs Vital Signs: Vital Signs (12 hours) Temp Pulse Resp BP Pulse Ox 11/19/19 11:53 97.6 F 68 16 132/58 L 96 11/19/19 07:06 98.3 F 74 16 119/68 96 11/19/19 04:00 98.6 F 78 18 120/71 93 L Weight Admit Weight 132 lb 6.88 oz Weight 132 lb 7 oz - Physical Exam General: Alert, Oriented x3, No acute distress HEENT: Atraumatic, PERRLA, EOMI, Mucous membr. moist/pink Lungs: Clear to auscultation, Normal air movement Cardiovascular: Regular rate, Normal S1, Normal S2, No murmurs, Gallops, Rubs Abdomen: Other (ostomy with liquid stool) Neurological: Normal speech - Labs Result Diagrams: 11/18/19 09:47 11/18/19 09:47 Status: lab reviewed by me A/P - Problem (1) Acute blood loss anemia Current Visit: Yes Code(s): D62 - ACUTE POSTHEMORRHAGIC ANEMIA Status: Acute (2) Rectal carcinoma Current Visit: Yes Code(s): C20 - MALIGNANT NEOPLASM OF RECTUM Status: Acute (3) Mesenteric ischemia Current Visit: Yes Code(s): K55.9 - VASCULAR DISORDER OF INTESTINE, UNSPECIFIED Status: Chronic - Plan Plan: Patient is a candidate for treatment. Depending on recovery, may get chemo or chemoradiation Discussed with patient and daughter He will follow-up with Dr. Powell in outpatient setting.
--- NOTE | 2019-11-19 12:23 | PDOC.GSPN ---
Surgery Progress Note: Subj - Subjective Narrative: Patient is doing better today. He is having a little burning pain at the fistula sites which we are going to treat with some lidocaine gel. His colostomy is functioning and he is passing gas and tolerating full liquids. He is drinking his Ensure as instructed. I will advance him to GI soft. Dr. Ram has recommended a short course of antibiotics and he is going to follow- up as an outpatient with oncology. Once he is passing stool through his colostomy he can likely be discharged home with home health to assist him with his ostomy and perianal wound care, if he is safe for home discharge from a mobility standpoint. I am not sure at this point what the timeline is for mesenteric angiography by Dr. Dyer, but the patient will need to follow-up for this as well. Surgery Progress Note: Obj - Vital signs Vital signs: Vital Signs - Most Recent Temp Pulse Resp BP Pulse Ox 97.6 F 68 16 132/58 L 96 11/19/19 11:53 11/19/19 11:53 11/19/19 11:53 11/19/19 11:53 11/19/19 11:53 Surgery Progress Note: Results - Labs Result Diagrams: 11/18/19 09:47 11/18/19 09:47
--- NOTE | 2019-11-19 12:58 | PDOC.HOSPP ---
- Subjective Encounter Date: 11/19/19 Encounter Time: 09:00 Subjective: has some pain in the anal area, no sob is tolerating liq diet, no nausea or abd pain - Objective Vital Signs & Weight: Vital Signs (12 hours) Temp Pulse Resp BP Pulse Ox 11/19/19 11:53 97.6 F 68 16 132/58 L 96 11/19/19 07:06 98.3 F 74 16 119/68 96 11/19/19 04:00 98.6 F 78 18 120/71 93 L Weight Admit Weight 132 lb 6.88 oz Weight 132 lb 7 oz I&O: 11/18/19 11/19/19 11/20/19 06:59 06:59 06:59 Intake Total 1000 3310 Output Total 625 3180 Balance 375 130 Result Diagrams: 11/18/19 09:47 11/18/19 09:47 Hospitalist ROS - Medication Medications: Active Medications Generic Name Dose Route Start Last Admin Trade Name Freq PRN Reason Stop Dose Admin Acetaminophen 650 mg 11/10/19 19:02 11/13/19 01:10 Tylenol PO 650 mg Q4H PRN Administration Headache/Fever/Mild Pain (1-3) Hydrocodone Bitart/Acetaminophen 1 tab 11/17/19 22:22 11/17/19 23:08 [place] 7.5/325 PO 1 tab Q4H PRN Administration Mild Pain (1-3) Aspirin 81 mg 11/13/19 09:00 11/19/19 08:30 Ecotrin PO 81 mg DAILY RG Administration Atorvastatin Calcium 20 mg 11/10/19 21:00 11/18/19 21:13 Lipitor PO 20 mg HS RG Administration Carvedilol 3.125 mg 11/13/19 17:00 11/19/19 08:30 Coreg PO 3.125 mg BID-WM RG Administration Potassium Chloride/Dextrose/Sod Cl 1,000 mls @ 120 mls/hr 11/17/19 22:30 08:29 D5 1/2 Ns W/20 Meq Kcl IV 1,000 mls .Q8H20M RG Administration Cefoxitin Sodium/Dextrose 2 gm 50 mls @ 50 mls/hr 11/17/19 23:59 11/19/19 08: 30 / Device IVPB 50 mls 0800,1600,2359 RG Administration Isosorbide Mononitrate 30 mg 11/11/19 09:00 11/19/19 08:30 Imdur Er PO 30 mg DAILY RG Administration Morphine Sulfate 4 mg 11/17/19 22:22 11/17/19 23:08 Morphine SLOW IVP 4 mg Q4H PRN Administration BREAKTHRU Mod-SeV Pain (6-10) Pantoprazole Sodium 40 mg 11/13/19 09:00 11/19/19 08:30 Protonix PO 40 mg DAILY RG Administration Polyethylene Glycol 17 gm 11/15/19 21:00 11/18/19 21:13 Miralax PO 17 gm HS RG Administration Sodium Chloride 10 ml 11/11/19 21:00 11/19/19 08:30 Flush - Normal Saline IVF 10 ml Q12HR RG Administration - Exam General Appearance: awake alert Eye: PERRL, anicteric sclera ENT: no oropharyngeal lesions, moist mucosa Neck: supple, no JVD Heart: RRR, no murmur Respiratory: no wheezes, no rales Gastrointestinal: soft, non-distended, normal bowel sounds Gastrointestinal - other findings: colostomy has serous material Extremities: no cyanosis, 1+ LE edema Neurological: cranial nerve grossly intact, no focal deficits Hosp A/P (1) Rectal carcinoma Code(s): C20 - MALIGNANT NEOPLASM OF RECTUM Status: Acute (2) Acute blood loss anemia Code(s): D62 - ACUTE POSTHEMORRHAGIC ANEMIA Status: Acute (3) Severe protein-calorie malnutrition Code(s): E43 - UNSPECIFIED SEVERE PROTEIN-CALORIE MALNUTRITION Status: Acute (4) Mesenteric ischemia Code(s): K55.9 - VASCULAR DISORDER OF INTESTINE, UNSPECIFIED Status: Chronic (5) CAD (coronary artery disease) Code(s): I25.10 - ATHSCL HEART DISEASE OF [place] CORONARY ARTERY W/O ANG PCTRS Status: Chronic Qualifiers: Coronary Disease-Associated Artery/Lesion type: bypass graft [place] vs. transplanted heart: [place] heart Associated angina: without angina Qualified Code(s): I25.810 - Atherosclerosis of coronary artery bypass graft(s) without angina pectoris (6) Carotid arterial disease Code(s): I77.9 - DISORDER OF ARTERIES AND ARTERIOLES, UNSPECIFIED Status: Chronic Qualifiers: Laterality: bilateral (7) Dyslipidemia Code(s): E78.5 - HYPERLIPIDEMIA, UNSPECIFIED Status: Chronic - Plan invasive adenocarcinoma of rectum, s/p colostomy with repair of fistulas for chemo or chemoradiation once he recovers well will likely need rehab or skilled, await PT opinion, CM consultation PT to mobilize as tolerated, was ambulating before admission. has low albumin has recieved 2 u prbc hemostable continue aspirin, lipitor, coreg, imdur ER, protonix, will add plavix if ok with gen surgery echo shows good ef, has mod mitral regurg on oral soft diet, colostomy is starting to work (gas present)
--- NOTE | 2019-11-19 16:43 | PDOC.FMACP ---
Advance Care Planning - Problem (1) Rectal carcinoma Status: Acute Code(s): C20 - MALIGNANT NEOPLASM OF RECTUM (2) Severe protein-calorie malnutrition Status: Acute Code(s): E43 - UNSPECIFIED SEVERE PROTEIN-CALORIE MALNUTRITION (3) Carotid arterial disease Status: Chronic Code(s): I77.9 - DISORDER OF ARTERIES AND ARTERIOLES, UNSPECIFIED Qualifiers: Laterality: bilateral (4) Mesenteric ischemia Status: Chronic Code(s): K55.9 - VASCULAR DISORDER OF INTESTINE, UNSPECIFIED - Note Participants: patient, palliative care Summary: Advanced Care Planning was discussed. The diagnosis, prognosis and goals of care were discussed. Appropriate forms and documentation to accomplish the goals of care were discussed. All questions were answered. The Palliative Care Team will be engaged to assist with completion of any outstanding forms that are needed. Conversation in relation to current diagnosis and multiple morbidities. Currently desiring to pursue aggressive measures with full resuscitation to sustain life if indicated. His daughter Rosalba is his MPOA, in attempting to discuss specifics of his wishes if he is not able he stated that his daughter knew, "To try, but not keep him alive on machines". Time Spent (mins): 30
--- NOTE | 2019-11-19 16:59 | PRG ---
DATE OF SERVICE: 11/19/2019 SUBJECTIVE: Feeling well, less pain than before, maybe when he coughs a little bit. Breathing okay, eating alright. OBJECTIVE: VITAL SIGNS: Normal. LUNGS: Clear. HEART: S1, S2, regular rate. ABDOMEN: Soft, not distended. Colostomy looks normal. LABORATORY DATA: White cell count 7.9, hemoglobin 7.7, platelets 267. Sodium 133, creatinine 1.15. He did have Campylobacter antigen positive, but I do not think this needs to be treated and is probably a false positive. He is not having symptoms that would be consistent with gastroenteritis at the moment. Most of those cases are self-limited anyways. ASSESSMENT AND DISCUSSION: Ischemic heart disease, bypass graft surgery, hypertension, advanced locally invasive rectal cancer with involvement of coccyx, exposure of coccyx with osteomyelitis and invasion of posterior rectal tissues with perirectal fistulas protruding towards the perianal region, status post drainage. The patient will be transitioned to oral Flagyl and Cipro for about 7 days. Subsequently, the patient will be a candidate for chemo/radiation therapy and then hopefully surgical resection, at risk for subsequent infectious complications, to be managed according to presentation in the future, patient probably will need resection of the coccyx down the road. Job ID: [id number]
[2019-11-19] MEDS: Atorvastatin Calcium 20 MG TAB PO SCH (19:39)
[2019-11-19] MEDS: Polyethylene Glycol 3350 17 GM Packet PO SCH (19:39)
[2019-11-19] MEDS: Docusate 100 MG CAP PO SCH (19:39)
[2019-11-19] MEDS: Lidocaine 4% Cream 5 GM TUBE w/ Tegaderm TOP PRN (23:02)
[2019-11-19] MEDS: HYDROcodone/Acetaminophen 7.5/325 mg Tablet PO PRN (23:38)
[2019-11-20] MEDS: D5 1/2 NS w/20 mEq KCL 1,000 ML IV SCH ×2 (00:35→05:46)
[2019-11-20] MEDS: Lidocaine 4% Cream 5 GM TUBE w/ Tegaderm TOP PRN (05:46)
[2019-11-20] MEDS: Docusate 100 MG CAP PO SCH (08:32)
[2019-11-20] MEDS: cefOXitin Sodium/Dextrose,Iso 2 GM in Premix Bag 1 BAG IVPB SCH ×2 (08:32→16:00)
[2019-11-20] MEDS: Carvedilol 3.125 MG TAB PO SCH (08:32)
[2019-11-20] MEDS: Isosorbide Mononitrate (ER) 30 MG TAB PO SCH (08:32)
[2019-11-20] MEDS: Aspirin 81 mg Enteric Coated Tablet PO SCH (08:32)
[2019-11-20 10:50] VITALS: BP 150/54; TEMP 98.1
--- NOTE | 2019-11-20 11:17 | PDOC.GSPN ---
Surgery Progress Note: Subj - Subjective Narrative: Patient is feeling fine and wants to go home. Perianal area has minimal drainage and is looking less inflamed and indurated. Drains are in good position. His colostomy is healthy and there is stool and gas in the bag. Assessment/plan: Doing well status post diverting colostomy and I&D of perirectal infection. From a surgical standpoint he is ready to go home at any time. He will need to have home health or wound care visits arranged for assistance with his colostomy and return to my clinic in 2 weeks for drain removal. In terms of the perianal area, he is to shower daily or to do sits baths if possible and then just place an external dressing. Surgery Progress Note: Obj - Vital signs Vital signs: Vital Signs - Most Recent Temp Pulse Resp BP Pulse Ox 98.1 F 74 16 150/54 H 98 11/20/19 10:46 11/20/19 10:46 11/20/19 10:46 11/20/19 10:46 11/20/19 10:46 Surgery Progress Note: Results - Labs Result Diagrams: 11/18/19 09:47 11/18/19 09:47
--- NOTE | 2019-11-20 13:02 | PDOC.PALCO ---
Palliative Care Consult - Consult Details Requesting Physician: Dr Monae Reason for Consult: goals of care - Pertinent HPI 74 year old male that lives in an independent home setting with one of his daughters. Onset of abdominal pain 3 months ago that progressed to nausea and vomiting with diarrhea. Weight loss. Presented to the emergency room for persistent diarrhea and perirectal pain. 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 Admitted and eventual surgery for diverting colostomy and I&D of perirectal infection. He was diagnosed with adenocarcinoma of the rectum. - Pertinent PMH HTN, HDL, CAD, PAD - Social History Smoking Status: Never smoker Smoking: no tobacco exposure Alcohol Use: rarely Drug Use History: none Living Situation: with family/parents - Medications MAR Reviewed: Yes - Allergies Allergies/Adverse Reactions: Allergies Allergy/AdvReac Type Severity Reaction Status Date / Time No Known Drug Allergies Allergy Verified 09/29/19 00:44 - ROS Constitutional: alert, weight changes ENT: other (Denies sore throat, congestion) Respiratory: other (denies cough, shortness of breath) Cardiology: other (denies edema, chest pain, palpitations) Gastrointestinal: other (discomfort to perirectal area) Genitourinary: hesitancy Musculoskeletal: other (Denies pain to extremities) Neurological: other (Negative for tremor, dizziness, headache) Skin: other (negative for rash, changes in skin texture) - Objective Vital Signs: Vital Signs - Most Recent Temp Pulse Resp BP Pulse Ox 98.1 F 74 16 150/54 H 98 11/20/19 10:46 11/20/19 10:46 11/20/19 10:46 11/20/19 10:46 11/20/19 10:46 Palliative Performance Scale: 50 - Physical Exam Constitutional: NAD, cachectic HEENT: EOMI, moist MMs, sclera anicteric Respiratory: no wheezing, unlabored breathing Cardiovascular: RRR Gastrointestinal: soft, colostomy Genitourinary: continent Musculoskeletal: no cyanosis, no clubbing, no edema Neurology: moves all 4 limbs, no focal deficits Skin: cap refill <2 seconds Psychiatric: A&O x 3, normal mood - Problem List (1) Rectal carcinoma Code(s): C20 - MALIGNANT NEOPLASM OF RECTUM Current Visit: Yes Status: Acute (2) Severe protein-calorie malnutrition Code(s): E43 - UNSPECIFIED SEVERE PROTEIN-CALORIE MALNUTRITION Current Visit: Yes Status: Acute (3) Carotid arterial disease Code(s): I77.9 - DISORDER OF ARTERIES AND ARTERIOLES, UNSPECIFIED Current Visit: Yes Status: Chronic Qualifiers: Laterality: bilateral (4) Mesenteric ischemia Code(s): K55.9 - VASCULAR DISORDER OF INTESTINE, UNSPECIFIED Current Visit: Yes Status: Chronic - Plan/Recommendations Plan: Life review, enjoys "working on cars" and 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 Family is important, he lives with his daughter and has multiple grandchildren. Hopeful for treatment/radiation to be effective, but states he does not want to suffer. Extensive family support. Hopeful to transition home with Home health. Will ensure spiritual care consult is placed. [60] minutes spent on this encounter with >50% of the time in counseling and coordination of care. Thank you for this very appropriate consult.
[2019-11-20] MEDS: HYDROcodone/Acetaminophen 7.5/325 mg Tablet PO PRN (15:52)
--- NOTE | 2019-11-21 18:46 | DIS ---
DATE OF ADMISSION: 11/10/2019 DATE OF DISCHARGE: 11/20/2019 DISCHARGE DISPOSITION: Home with [facility]. 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 PROCEDURES DONE DURING HOSPITALIZATION: Abdominal and pelvic CAT scan done on the day of admission with contrast done showed multiple rectal erosions with left perirectal fistula to the left gluteal fold along with sinus tracts to the mesorectal fascia, presacral space and near the base of the penis. There is also remodeling of the coccyx suggesting underlying osteomyelitis. 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 No evidence of bowel obstruction was seen on the CAT scan. Echo with 2D Doppler showed EF of 55% to 60%, moderate mitral regurgitation. Colonoscopy done on 11/12/[address] Garrido showed circumferential rectal mass, fungating and hard, protruding from the anal area extending from the anorectal verge circumferentially up to 10 cm. Multiple biopsies were obtained. Histopathology of the rectal biopsy showed invasive moderately to poorly differentiated adenocarcinoma, MLH1 and PMS2 were not detected by immunohistochemistry. MSH2 and MSH6 were expressed. Absence of staining for MLH1 and PMS2 indicates deficiency in these mismatch repair proteins. On 11/17/2019, patient had laparoscopic colostomy placement and incision and drainage of perirectal fistulas and abscesses by Dr. Boland. Blood cultures x2, no growth. Stool for C difficile was negative. Campylobacter antigen was positive. Shiga toxin 1 and 2 were negative. The patient's stool was positive for Cryptosporidium antigen. White count of 8, H and H 7.7 and 25, platelet count 267, MCV 74 on the day of discharge. Admitting H and H were 6.9 and 24, which later dropped down to 6.3 and 22. MCV was 68 on the day of admission. Discharge BUN and creatinine are 9 and 1.1. Albumin levels are 2.0. CEA levels were 9.74. Liver enzymes were within normal limits. HIV 1 and 2 antigen and antibody nonreactive. Acute hepatitis panel nonreactive. DISCHARGE MEDICATIONS: 1. Atorvastatin 20 mg p.o. daily. 2. Calcium carbonate 600 mg twice daily. 3. Carvedilol 6.25 mg twice daily. 4. Imdur extended release 30 mg daily. 5. Aspirin 81 mg daily. 6. Ciprofloxacin 500 mg twice daily for 7 days. 7. Flagyl 500 mg p.o. 3 times daily for 7 days. 8. Ferrous sulfate 325 mg p.o. daily. 9. Motrin 400 mg p.o. 3 times daily p.r.n. 10. Colace 100 mg twice daily. 11. Protonix 40 mg daily. 12. MiraLAX 17 g p.o. at bedtime. ALLERGIES: NO KNOWN DRUG ALLERGIES INPATIENT. INPATIENT CONSULTS: 1. Dr. Boland for General Surgery. 2. Dr. Voss/Dr. Garrido for Gastroenterology. 3. Dr. Dyer for Vascular Surgery. 4. Dr. Enrique Moore for Radiation. 5. Ms. Isa Sellers for Oncology. DISCHARGE PLAN: The patient to follow up with Dr. Ciaran Powell on 12/03/2019 at 2 p.m. He will follow up with Dr. Boland as advised, Dr. Dyer in 2 to 3 weeks. BRIEF COURSE DURING HOSPITALIZATION: The patient initially came in with complaints of rectal pain. He was found to have multiple fistulas. The patient also had hemoglobin of 6 g on arrival. In view of this history, he has had consultation with infrastructure consultant. The patient had a CAT scan done which was suspicious for a mass in the rectal area. Colonoscopy showed fungating mass and had biopsies taken. This has come back positive for invasive adenocarcinoma. He has had further consultations with Dr. Enrique Moore, Dr. Boland and Ms Isa Sellers, nurse practitioner for Oncology. The patient has had colostomy placed with incision and drainage of perirectal fistulas. The plan is for patient to heal all his fistulas and likely will be a candidate for chemoradiation based on his performance status. He is hemodynamically stable, ambulating prior to discharge. The patient received 2 units of packed cell during his stay here. Please note I have seen and examined the patient on the day of discharge. The patient might become a candidate for surgery after cytoreduction with chemoradiation and for possible likely excision of his coccyx as well due to erosion from cancer. He needs to continue Cipro and Flagyl for one more week. Job ID: [id number] [facility]
== END 2019-11-20 16:10 | disposition home health service (06) | DRG 329 ==
LOC: ERS 14:23 → OBSVTOIN 18:57 → SURG A 18:57
PROVIDERS: ADMIT Internal Medicine; ATTEND Internal Medicine
PROC: 0DJ08ZZ Inspection of Upper Intestinal Tract, Via Natural or Artificial Opening Endoscopic (ICD-10-PCS; principal; 2019-11-12)
PROC: 0DBP8ZX Excision of Rectum, Via Natural or Artificial Opening Endoscopic, Diagnostic (ICD-10-PCS; 2019-11-12)
PROC: 0D1N4Z4 Bypass Sigmoid Colon to Cutaneous, Percutaneous Endoscopic Approach (ICD-10-PCS; 2019-11-17)
PROC: 0D9P7ZZ Drainage of Rectum, Via Natural or Artificial Opening (ICD-10-PCS; 2019-11-17)
DX: C20 Malignant neoplasm of rectum (principal); K55.059 Acute (reversible) ischemia of intestine, part and extent unspecified; E43 Unspecified severe protein-calorie malnutrition; D62 Acute posthemorrhagic anemia; M86.8X8 Other osteomyelitis, other site; N17.9 Acute kidney failure, unspecified; I77.4 Celiac artery compression syndrome; I25.10 Atherosclerotic heart disease of native coronary artery without angina pectoris; E78.5 Hyperlipidemia, unspecified; K60.4 Rectal fistula; I34.0 Nonrheumatic mitral (valve) insufficiency; E78.00 Pure hypercholesterolemia, unspecified; I73.9 Peripheral vascular disease, unspecified; K64.9 Unspecified hemorrhoids; R13.10 Dysphagia, unspecified; E11.22 Type 2 diabetes mellitus with diabetic chronic kidney disease; N18.3 Chronic kidney disease, stage 3 (moderate); I12.9 Hypertensive chronic kidney disease with stage 1 through stage 4 chronic kidney disease, or unspecified chronic kidney disease; Z95.1 Presence of aortocoronary bypass graft; Z68.22 Body mass index [BMI] 22.0-22.9, adult; Z79.4 Long term (current) use of insulin; Z87.891 Personal history of nicotine dependence
CPT/HCPCS: 36415; 36430; 74177; 80048; 80053; 80069; 80074; 81003; 82274; 82378; 83630; 83690; 83735; 83880; 84100; 85014; 85018; 85025; 85046; 85610; 85730; 86850; 86900; 86901; 87040; 87045; 87046; 87177; 87324; 87328; 87329; 87389; 87427; 87449; 88305; 88361; 93306; 96365; 96366; 96367; 96375; C9113; J0694; J0696; J1956; J2001; J2270; J2405; J2704; J3010; J3480; J3490; P9016; Q9967; S0020

== ENCOUNTER → 2019-12-04 | Day surgery (SDC) | payer MEDICARE ==
[~2019-12-04] MED LIST changes: +Acetaminophen 500 MG TAB PO SCH; -Iopamidol 370 76% 50 ML VIAL FS ONE; -Iopamidol-370 76% 500 ML 1 ML ONE; +diphenhydrAMINE 25 MG CAP PO SCH
[2019-12-04 17:15] VITALS: BP 182/79; TEMP 99
[2019-12-04 17:29] LABS: #Basophils 0.1 thou/uL (0.0-0.2); #Eosinphils 0.4 thou/uL (0.0-0.7); #Lymphocytes 2.3 thou/uL (1.20-3.40); #Monocytes 0.5 thou/uL (0.11-0.59); #Neutrophils 2.4 thou/uL (1.40-6.50); %Eosinophils 6.8 % (0.0-10.0); %Lymphocytes 40.5 % (21.0-51.0); %Monocytes 9.4 % (0.0-10.0); %Neutrophils 42.3 % (42.0-75.0); Hemoglobin 9.2 g/dL (14.0-18.0); Mean Corpuscular Volume 80.7 fL (78.0-98.0); Mean Platelet Volume 8.4 fL (7.4-10.4); Platelet Count 338 thou/uL (130-400); RBC Distribution Width 22.2 % (11.5-14.5); Red Blood Cell (RBC) Count 3.66 mill/uL (4.70-6.10); White Blood Cell (WBC) Count 5.7 thou/uL (4.8-10.8)
[2019-12-04 17:47] LABS: Anisocytosis MODERATE=16-30 cells (100X) (0-5/hpf); Elliptocytes SLIGHT = 2-5 cells (100X) (0-1/hpf); Hypochromia SLIGHT = 6-15 cells (100X) (0-5/hpf); MDiff Complete? YES; Ovalocytes SLIGHT = 2-5 cells (100X) (0-1/hpf); Platelet Morphology Comment Appears Adequate; Poikilocytosis SLIGHT = 6-15 cells (100X) (0-5/hpf); Polychromasia SLIGHT = 2-3 cells (100X) (0-2/hpf); Schistocytes SLIGHT = 2-5 cells (100X) (0-1/hpf); Spherocytes SLIGHT = 1-5 cells (100X) (None Seen); Tear Drops SLIGHT = 2-5 cells (100X) (0-1/hpf)
== END ==
LOC: ONC/OP 10:52
PROVIDERS: ATTEND Nurse Practitioner Acute Care
PROC: 30233N1 Transfusion of Nonautologous Red Blood Cells into Peripheral Vein, Percutaneous Approach (ICD-10-PCS; principal; 2019-12-04)
DX: D64.9 Anemia, unspecified (principal); D69.6 Thrombocytopenia, unspecified
CPT/HCPCS: 36430; 85025; 86850; 86900; 86901; P9016; Q0163

== ENCOUNTER 2019-12-10 13:22 | Outpatient (CLI) | payer MEDICARE ==
[~2019-12-10 13:22] MED LIST changes: -Acetaminophen 500 MG TAB PO SCH; +Iopamidol-370 76% 500 ML 1 ML ONE; -diphenhydrAMINE 25 MG CAP PO SCH
--- NOTE | 2019-12-10 15:04 | CT ---
CT CHEST WITH CONTRAST: 12/10/19 INDICATIONS: Rectal cancer. Exam performed for screening purposes. Correlation made to recent CT abdomen and pelvis of 11/10/19 which contained images through the lung ba ses. FINDINGS: There has been significant change in the appearance of the lungs. There is now a moderate sided right pleural effusion which has occurred since 11/10/19 exam. There is also a small left effusion for which some of which appears loculated. There are patchy areas of ground glass opacities seen in both lungs in somewhat of a perihilar and pe ripheral distribution. There are areas of more confluent opacity on the right with nodular appearance . Viral pneumonitis should be excluded. Nonspecific mediastinal adenopathy. Pulmonary arteries are opacified. There is no evidence of proxima l pulmonary embolus. Thoracic aorta shows atherosclerotic changes. No dissection. Osseous structures unremarkable. IMPRESSION: 1. Changes in the chest have occurred since the CT abdomen of 11/10/19. There are now [id number] p leural effusions, larger on the right. The left effusion appears located along the left lateral chest . 2. There are patchy areas of bilateral nodular ground glass opacities throughout both lungs. Vir al pneumonitis should be considered. Findings discussed with Dr. Powell. POS: AGW
== END 2019-12-10 13:23 | disposition home or self-care (01) ==
LOC: BICCT 13:22
PROVIDERS: ATTEND Internal Medicine Hematology & Oncology
DX: C20 Malignant neoplasm of rectum (principal); J90 Pleural effusion, not elsewhere classified; R91.8 Other nonspecific abnormal finding of lung field
CPT/HCPCS: 71260

== ENCOUNTER 2020-06-08 12:32 | Day surgery (SDC) | payer MEDICARE ==
[~2020-06-08 12:32] MED LIST changes: -Iopamidol-370 76% 500 ML 1 ML ONE; +Pembrolizumab 200 MG in Sodium Chloride 0.9% 250 ML 250 ML IV SCH
[2020-06-08] MEDS ORDERED: Sodium Chloride 0.9% 20 ML ONE (12:51)
[2020-06-08 13:00] VITALS: BP 183/77; TEMP 99
== END 2020-06-08 15:02 | disposition home or self-care (01) ==
LOC: ONC/OP 12:32
PROVIDERS: ATTEND Internal Medicine Hematology & Oncology
DX: Z51.12 Encounter for antineoplastic immunotherapy (principal); C20 Malignant neoplasm of rectum; D50.0 Iron deficiency anemia secondary to blood loss (chronic); J18.9 Pneumonia, unspecified organism
CPT/HCPCS: 96413; J7050; J9271

== ENCOUNTER 2020-06-29 12:53 | Day surgery (SDC) | payer MEDICARE, OTHER ==
[2020-06-29] MEDS ORDERED: Sodium Chloride 0.9% 20 ML ONE (12:55)
[2020-06-29 13:05] VITALS: BP 195/82; TEMP 98.2
== END 2020-06-29 14:19 | disposition home or self-care (01) ==
LOC: ONC/OP 12:53
PROVIDERS: ATTEND Internal Medicine Hematology & Oncology
DX: Z51.12 Encounter for antineoplastic immunotherapy (principal); C20 Malignant neoplasm of rectum; D50.0 Iron deficiency anemia secondary to blood loss (chronic); J18.9 Pneumonia, unspecified organism
CPT/HCPCS: 96413; J7050; J9271

== ENCOUNTER 2020-07-20 12:39 | Day surgery (SDC) | payer MEDICARE, OTHER ==
[2020-07-20 13:52] VITALS: BP 185/86; TEMP 97.9
== END 2020-07-20 15:26 | disposition home or self-care (01) ==
LOC: ONC/OP 12:39
PROVIDERS: ATTEND Internal Medicine Hematology & Oncology
DX: Z51.12 Encounter for antineoplastic immunotherapy (principal); C20 Malignant neoplasm of rectum; D50.0 Iron deficiency anemia secondary to blood loss (chronic); J18.9 Pneumonia, unspecified organism
CPT/HCPCS: 96413; J7050; J9271

== ENCOUNTER 2020-08-10 12:39 | Day surgery (SDC) | payer MEDICARE ==
[2020-08-10 13:08] VITALS: BP 187/56; TEMP 97.6
[2020-08-10] MEDS ORDERED: Sodium Chloride 0.9% 20 ML ONE (13:14)
== END 2020-08-10 16:27 | disposition home or self-care (01) ==
LOC: ONC/OP 12:39
PROVIDERS: ATTEND Internal Medicine Hematology & Oncology
DX: Z51.12 Encounter for antineoplastic immunotherapy (principal); C20 Malignant neoplasm of rectum; D50.0 Iron deficiency anemia secondary to blood loss (chronic)
CPT/HCPCS: 96413; J7050; J9271

== ENCOUNTER 2020-08-29 08:15 | Outpatient (CLI) | payer MEDICARE ==
--- NOTE | 2020-08-29 11:03 | CT ---
CT Chest Abd Pelvis W Con History: Rectal cancer. Iron deficiency. Comparison: Abdomen pelvis CT November 2019 CT chest December 2019 Findings: Chronic left basilar peripheral pleural thickening. No suspicious pulmonary nodule. No pneu mothorax. Increased extrapleural fat bilaterally, although asymmetrically involving the left posterior pleura. Severe vascular calcifications left subclavian artery just after the left vertebral artery origin. No mediastinal adenopathy. No pericardial effusion. Abnormal soft tissue with peripheral enhancement along the left ischioanal fossa along the previously described fistula. Left lower quadrant ostomy is intact with herniation of a loop of mid small bowel. No bowel obstruction. There is a hypodensity within the pancreatic uncinate process which is well-defined measuring 8 mm wi th what appears to be layering internal calcifications. No significant growth. 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 High grade atherosclerotic plaque of the aorta. High-grade 70-80% narrowing of the celiac trunk origi n. Small hiatal hernia. Renal hypodensities have not grown. No retroperitoneal or periaortic adenopathy. Sigmoid suture line is intact. No evidence for leak. Within the periphery right lobe liver hepatic segment VII, axial image 49, is a subcapsular triangula r-shaped area of enhancement measuring up to 8 mm. No other hepatic mass is appreciated. Portal vein is patent. Splenic vein is patent. No acute osseous abnormality. No further absorption of the coccyx from prior osteomyelitis. The sinus tracts appear to have resorbed. Impression: 1. Findings concerning for tumor extension along the occluded left ischioanal fossa fistula extending to the left gluteal fold out of field of view and less likely scar from healed fistula. PET/CT can be performed to evaluate for tumor extension across the occluded fistula. 3. Descending left colostomy with small bowel containing parastomal hernia. No evidence for bowel obs truction. 4. 7-8 mm triangular shaped area of enhancement subcapsular hepatic VII axial image 49. This may refl ect a small vascular shunt versus a flash filling hemangioma. Follow-up MRI liver protocol recommended. Metastatic focus is felt less likely. 5. No suspicious pulmonary nodule. 6. 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 Peripheral vascular flow of the superior mesenteric artery distal to the occlusion. Patient is at risk for developing mesenteric ischemia although none is currently appreciat ed. 7. Unchanged renal hypodensities suggestive of cysts. 8. No abnormal mesorectal lymph nodes. 9. Unchanged 8 mm hypodensity pancreatic head/uncinate process. Transcribed Date/Time: 08/29/2020 11:27 AM
[2020-08-29] MEDS ORDERED: Iopamidol 370 76% 100 ML VIAL ONE (11:08)
[2020-08-29] MEDS ORDERED: Iopamidol 370 76% 50 ML VIAL FS ONE (11:08)
== END 2020-08-29 08:16 | disposition home or self-care (01) ==
LOC: CT 08:15
PROVIDERS: ATTEND Internal Medicine Hematology & Oncology
DX: C20 Malignant neoplasm of rectum (principal); D50.0 Iron deficiency anemia secondary to blood loss (chronic); J18.9 Pneumonia, unspecified organism; Z93.3 Colostomy status; K86.9 Disease of pancreas, unspecified; Z79.899 Other long term (current) drug therapy
CPT/HCPCS: 36415; 71260; 74177; 80053; 82248; 83615; 84100; 84436; 84443; 84550; Q9967

== ENCOUNTER 2020-08-31 12:32 | Day surgery (SDC) | payer MEDICARE ==
[2020-08-31 13:00] VITALS: BP 183/77; TEMP 98.7
== END 2020-08-31 14:41 | disposition home or self-care (01) ==
LOC: ONC/OP 12:32
PROVIDERS: ATTEND Internal Medicine Hematology & Oncology
DX: Z51.12 Encounter for antineoplastic immunotherapy (principal); C20 Malignant neoplasm of rectum; D50.0 Iron deficiency anemia secondary to blood loss (chronic); J18.9 Pneumonia, unspecified organism
CPT/HCPCS: 96413; J7050; J9271

== ENCOUNTER 2020-09-21 09:43 | Day surgery (SDC) | payer MEDICARE ==
[~2020-09-21 09:43] MED LIST changes: +Sodium Chloride 0.9% 20 ML ONE
[2020-09-21 10:11] VITALS: BP 137/63
== END 2020-09-21 11:46 | disposition home or self-care (01) ==
LOC: ONC/OP 09:43
PROVIDERS: ATTEND Internal Medicine Hematology & Oncology
DX: Z51.12 Encounter for antineoplastic immunotherapy (principal); C20 Malignant neoplasm of rectum; D50.0 Iron deficiency anemia secondary to blood loss (chronic); J18.9 Pneumonia, unspecified organism
CPT/HCPCS: 96413; J7050; J9271

== ENCOUNTER 2020-10-12 12:38 | Day surgery (SDC) | payer MEDICARE, OTHER ==
[~2020-10-12 12:38] MED LIST changes: -Sodium Chloride 0.9% 20 ML ONE
[2020-10-12 13:03] VITALS: BP 169/72; TEMP 98.7
== END 2020-10-12 14:01 | disposition home or self-care (01) ==
LOC: ONC/OP 12:38
PROVIDERS: ATTEND Internal Medicine Hematology & Oncology
DX: Z51.12 Encounter for antineoplastic immunotherapy (principal); C20 Malignant neoplasm of rectum; D50.0 Iron deficiency anemia secondary to blood loss (chronic); J18.9 Pneumonia, unspecified organism
CPT/HCPCS: 96413; J7050; J9271

== ENCOUNTER 2020-11-02 12:37 | Day surgery (SDC) | payer MEDICARE, OTHER ==
[2020-11-02] MEDS ORDERED: Sodium Chloride 0.9% 20 ML ONE (12:45)
[2020-11-02 12:53] VITALS: BP 180/77; TEMP 98
== END 2020-11-02 13:43 | disposition home or self-care (01) ==
LOC: ONC/OP 12:37
PROVIDERS: ATTEND Internal Medicine Hematology & Oncology
DX: Z51.12 Encounter for antineoplastic immunotherapy (principal); C20 Malignant neoplasm of rectum; D50.0 Iron deficiency anemia secondary to blood loss (chronic)
CPT/HCPCS: 96413; J7050; J9271

== ENCOUNTER 2020-11-23 12:40 | Day surgery (SDC) | payer MEDICARE ==
[~2020-11-23 12:40] MED LIST changes: -Pembrolizumab 200 MG in Sodium Chloride 0.9% 250 ML 250 ML IV SCH; +Pembrolizumab 200 MG in Sodium Chloride 0.9% 250 ML 250 ML IVPB SCH
[2020-11-23] MEDS ORDERED: Sodium Chloride 0.9% 20 ML ONE (13:25)
[2020-11-23 13:32] VITALS: BP 138/63; TEMP 97.9
== END 2020-11-23 14:05 | disposition home or self-care (01) ==
LOC: ONC/OP 12:40
PROVIDERS: ATTEND Internal Medicine Hematology & Oncology
DX: Z51.12 Encounter for antineoplastic immunotherapy (principal); C20 Malignant neoplasm of rectum; D50.0 Iron deficiency anemia secondary to blood loss (chronic)
CPT/HCPCS: 96413; J7050; J9271

== ENCOUNTER 2020-12-02 12:34 | Outpatient (CLI) | payer MEDICARE | END 2020-12-02 12:35 | disposition home or self-care (01) | LOC: BICCT 12:34 | PROVIDERS: ATTEND Internal Medicine Hematology & Oncology | DX: C20 Malignant neoplasm of rectum (principal); D50.0 Iron deficiency anemia secondary to blood loss (chronic); J18.9 Pneumonia, unspecified organism; R91.8 Other nonspecific abnormal finding of lung field; M79.89 Other specified soft tissue disorders | CPT/HCPCS: 71260; 74177 ==

== ENCOUNTER 2021-01-25 10:59 | Outpatient (CLI) | payer MEDICARE, OTHER | END 2021-01-25 11:00 | disposition home or self-care (01) | LOC: LABBT 10:59 | PROVIDERS: ATTEND Surgery | DX: Z01.818 Encounter for other preprocedural examination (principal); C20 Malignant neoplasm of rectum; Z20.822 Contact with and (suspected) exposure to COVID-19 | CPT/HCPCS: 80048; 85025; 93005; U0003; U0005; 93010 ==

== ENCOUNTER 2021-02-14 11:41 | Inpatient (IN) | payer MEDICARE ==
[2021-02-14 12:23] LABS: #Eosinphils 0.6 thou/uL (0.0-0.7); #Lymphocytes 0.9 thou/uL (1.20-3.40); #Monocytes 0.5 thou/uL (0.11-0.59); #Neutrophils 8.4 thou/uL (1.40-6.50); %Basophils 0.1 % (0.0-1.0); %Eosinophils 5.7 % (0.0-10.0); %Lymphocytes 8.8 % (21.0-51.0); %Monocytes 5.2 % (0.0-10.0); %Neutrophils 80.2 % (42.0-75.0); Hemoglobin 13.6 g/dL (14.0-18.0); Mean Corpuscular HGB CONC 33.6 g/dL (32.0-36.0); Mean Corpuscular Hemoglobin 31.2 pg (27.0-31.0); Mean Corpuscular Volume 92.7 fL (78.0-98.0); Mean Platelet Volume 6.2 fL (7.4-10.4); Platelet Count 216 thou/uL (130-400); RBC Distribution Width 14.8 % (11.5-14.5); Red Blood Cell (RBC) Count 4.35 mill/uL (4.70-6.10); White Blood Cell (WBC) Count 10.5 thou/uL (4.8-10.8)
[2021-02-14] MEDS ORDERED: Morphine 4 MG/ML VIAL ONE ×4 (12:35→17:00)
[2021-02-14] MEDS ORDERED: Morphine 2 MG/ML VIAL ONE (12:35)
[2021-02-14] MEDS ORDERED: Ondansetron PF 4 MG/2 ML Vial ONE (12:35)
[2021-02-14 12:50] LABS: ALT (SGPT) 12 U/L (8-55); AST (SGOT) 24 U/L (5-34); Albumin 3.6 g/dL (3.4-4.8); Alkaline Phosphatase 101 U/L (40-110); Anion Gap 15 mmol/L (10-20); BUN (Urea Nitrogen) 12 mg/dL (8.4-25.7); Bilirubin, Total 0.7 mg/dL (0.2-1.2); Calc. Creatinine Clearance 0 mL/min (70-130); Calcium 8.5 mg/dL (7.8-10.44); Carbon Dioxide 20 mmol/L (23-31); Chloride 106 mmol/L (98-107); Globulin 3.2 g/dL (2.4-3.5); Glucose 204 mg/dL (83-110); Lipase 40 U/L (8-78); Potassium 3.7 mmol/L (3.5-5.1); Protein, Total 6.8 g/dL (5.8-8.1); Sodium 137 mmol/L (136-145)
[2021-02-14 14:45] LABS: Bacteria/HPF None Seen HPF (None Seen); Bilirubin Negative (Negative); Blood, Urine 1+ (Negative); Clarity Clear (Clear); Glucose, Urine (Dipstick) 70 mg/dL (Negative); Ketone, Urine Negative (Negative); Leukocyte Negative Leu/uL (Negative); Nitrite Negative (Negative); Protein, Urine (Dipstick) 50 mg/dL (Neg-Trace); Squamous Epithelial None Seen HPF (0-3); Urobilinogen Normal mg/dL (Less than 2); WBC/HPF 0-3 HPF (0-3)
[2021-02-14] MEDS ORDERED: Labetalol HCl 100 MG/20 ML VIAL ONE (15:08)
[2021-02-14] MEDS ORDERED: hydrALAZINE 20 MG/ML VIAL ONE (16:35)
[2021-02-14] MEDS ORDERED: Labetalol HCl 100 MG/20 ML VIAL SLOW IVP PRN (18:26)
[2021-02-14] MEDS ORDERED: Carvedilol 6.25 MG TAB PO SCH (19:00)
[2021-02-14] MEDS ORDERED: Melatonin 3 MG TAB PO PRN (20:22)
[2021-02-14] MEDS ORDERED: HYDROmorphone 0.5 MG/0.5 ML SYRINGE ONE ×2 (20:42→20:47)
[2021-02-14] MEDS ORDERED: HYDROmorphone 0.5 MG/0.5 ML SYRINGE SLOW IVP SCH (21:00)
[2021-02-14] MEDS ORDERED: Dextrose 5% in Water 1,000 ML IV PRN (21:08)
[2021-02-14] MEDS ORDERED: HumaLOG 300 UNITS/3 ML VIAL SC PRN (21:08)
[2021-02-14] MEDS ORDERED: Dextrose 50% Abboject 50 ML SYRINGE SLOW IVP PRN (21:08)
[2021-02-14 21:30] LABS: Magnesium 1.6 mg/dL (1.6-2.6)
[2021-02-14] MEDS ORDERED: Magnesium Sulfate 4 GM in Sodium Chloride 0.9% 250 ML 250 ML IVPB SCH (22:30)
[2021-02-14] MEDS: Ondansetron PF 4 MG/2 ML Vial IVP PRN (22:30)
[2021-02-14] MEDS: Tamsulosin HCl 0.4 MG CAP PO SCH (22:31)
[2021-02-14] MEDS: Atorvastatin Calcium 20 MG TAB PO SCH (22:31)
[2021-02-14 22:43] VITALS: BMI 27.1
[2021-02-14] MEDS: hydrALAZINE 20 MG/ML VIAL SLOW IVP PRN (23:18)
[2021-02-14] MEDS: Pantoprazole 40 MG VIAL IVP SCH (23:19)
[2021-02-15] MEDS: Morphine 4 MG/ML VIAL SLOW IVP PRN ×2 (02:30→17:46)
[2021-02-15 06:10] LABS: Anion Gap 14 mmol/L (10-20); BUN (Urea Nitrogen) 16 mg/dL (8.4-25.7); Calc. Creatinine Clearance 65 mL/min (70-130); Carbon Dioxide 19 mmol/L (23-31); Chloride 106 mmol/L (98-107); Potassium 3.3 mmol/L (3.5-5.1); Sodium 136 mmol/L (136-145)
[2021-02-15 06:11] LABS: Band 18 % (5-11); Calcium 8.7 mg/dL (7.8-10.44); Glucose 165 mg/dL (83-110); Lymphocytes 6 % (21-51); MDiff Complete? YES; Mean Corpuscular HGB CONC 32.1 g/dL (32.0-36.0); Mean Corpuscular Hemoglobin 29.8 pg (27.0-31.0); Mean Corpuscular Volume 92.9 fL (78.0-98.0); Mean Platelet Volume 6.3 fL (7.4-10.4); Monocytes 2 % (0-10); Neutrophil 74 % (42-75); Nucleated RBC 1 % (0); Platelet Count 225 thou/uL (130-400); Platelet Morphology Comment Appears Adequate; RBC Distribution Width 14.9 % (11.5-14.5); Red Blood Cell (RBC) Count 4.71 mill/uL (4.70-6.10); White Blood Cell (WBC) Count 7.7 thou/uL (4.8-10.8)
[2021-02-15] MEDS: HumaLOG 300 UNITS/3 ML VIAL SC PRN (06:24)
[2021-02-15] MEDS: HYDROcodone/Acetaminophen 10/325 mg Tablet PO PRN (08:34)
[2021-02-15] MEDS: Losartan 25 MG TAB PO SCH (08:35)
[2021-02-15] MEDS: Carvedilol 6.25 MG TAB PO SCH ×2 (08:35→18:46)
[2021-02-15] MEDS: Potassium Bicarbonate/Cit Ac 20 MEQ TAB PO SCH ×2 (12:12→18:45)
[2021-02-15 13:34] LABS: SARS-CoV-2 PCR by NAA Not Detected (NotDetected)
[2021-02-15] MEDS: hydrALAZINE 20 MG/ML VIAL SLOW IVP PRN ×2 (16:51→23:55)
[2021-02-15] MEDS: Ondansetron PF 4 MG/2 ML Vial IVP PRN (16:54)
[2021-02-15] MEDS: Tamsulosin HCl 0.4 MG CAP PO SCH (20:18)
[2021-02-15] MEDS: Pantoprazole 40 MG VIAL IVP SCH (20:18)
[2021-02-15] MEDS: Atorvastatin Calcium 20 MG TAB PO SCH (20:18)
[2021-02-16] MEDS: HYDROcodone/Acetaminophen 10/325 mg Tablet PO PRN ×2 (01:19→11:27)
[2021-02-16 04:19] LABS: #Lymphocytes 0.7 thou/uL (1.20-3.40); #Monocytes 0.4 thou/uL (0.11-0.59); #Neutrophils 9.4 thou/uL (1.40-6.50); %Basophils 0.1 % (0.0-1.0); %Eosinophils 0.3 % (0.0-10.0); %Lymphocytes 6.6 % (21.0-51.0); %Monocytes 3.8 % (0.0-10.0); %Neutrophils 89.3 % (42.0-75.0); Hemoglobin 11.2 g/dL (14.0-18.0); Mean Corpuscular HGB CONC 33.9 g/dL (32.0-36.0); Mean Corpuscular Volume 91.5 fL (78.0-98.0); Mean Platelet Volume 6.2 fL (7.4-10.4); Platelet Count 181 thou/uL (130-400); RBC Distribution Width 15.4 % (11.5-14.5); Red Blood Cell (RBC) Count 3.61 mill/uL (4.70-6.10); White Blood Cell (WBC) Count 10.6 thou/uL (4.8-10.8)
[2021-02-16 04:41] LABS: Anion Gap 10 mmol/L (10-20); BUN (Urea Nitrogen) 23 mg/dL (8.4-25.7); Calc. Creatinine Clearance 61 mL/min (70-130); Calcium 8.5 mg/dL (7.8-10.44); Carbon Dioxide 23 mmol/L (23-31); Chloride 102 mmol/L (98-107); Glucose 147 mg/dL (83-110); Magnesium 2.3 mg/dL (1.6-2.6); Potassium 3.8 mmol/L (3.5-5.1); Sodium 131 mmol/L (136-145)
[2021-02-16] MEDS: Carvedilol 6.25 MG TAB PO SCH ×2 (08:41→17:43)
[2021-02-16] MEDS: Losartan 25 MG TAB PO SCH (08:42)
[2021-02-16] MEDS: Potassium Bicarbonate/Cit Ac 20 MEQ TAB PO SCH ×2 (08:42→17:43)
[2021-02-16] MEDS: Acetaminophen 325 MG TAB PO PRN ×2 (08:43→17:42)
[2021-02-16] MEDS: Sodium Chloride 0.9% 1,000 ML IV SCH ×2 (09:38→21:18)
[2021-02-16] MEDS: HumaLOG 300 UNITS/3 ML VIAL SC PRN (11:29)
[2021-02-16] MEDS ORDERED: Morphine 4 MG/ML VIAL SLOW IVP PRN (16:04)
[2021-02-16] MEDS ORDERED: HYDROcodone/Acetaminophen 5/325 mg Tablet PO PRN (16:10)
[2021-02-16] MEDS ORDERED: HYDROcodone/Acetaminophen 10/325 mg Tablet PO PRN (16:12)
[2021-02-16] MEDS: Pantoprazole 40 MG VIAL IVP SCH (21:14)
[2021-02-16] MEDS: Morphine ER 15 MG TAB PO SCH (21:14)
[2021-02-16] MEDS: Tamsulosin HCl 0.4 MG CAP PO SCH (21:14)
[2021-02-16] MEDS: Atorvastatin Calcium 20 MG TAB PO SCH (21:14)
[2021-02-17 04:18] LABS: #Eosinphils 0.4 thou/uL (0.0-0.7); #Lymphocytes 0.7 thou/uL (1.20-3.40); #Monocytes 0.2 thou/uL (0.11-0.59); #Neutrophils 6.7 thou/uL (1.40-6.50); %Eosinophils 4.9 % (0.0-10.0); %Lymphocytes 8.2 % (21.0-51.0); %Monocytes 2.9 % (0.0-10.0); %Neutrophils 84.1 % (42.0-75.0); Hemoglobin 9.8 g/dL (14.0-18.0); Mean Corpuscular HGB CONC 34.5 g/dL (32.0-36.0); Mean Corpuscular Hemoglobin 31.9 pg (27.0-31.0); Mean Corpuscular Volume 92.4 fL (78.0-98.0); Mean Platelet Volume 6.3 fL (7.4-10.4); Platelet Count 171 thou/uL (130-400); RBC Distribution Width 15.1 % (11.5-14.5); Red Blood Cell (RBC) Count 3.08 mill/uL (4.70-6.10)
[2021-02-17 04:34] LABS: Anion Gap 8 mmol/L (10-20); BUN (Urea Nitrogen) 14 mg/dL (8.4-25.7); Calc. Creatinine Clearance 72 mL/min (70-130); Carbon Dioxide 24 mmol/L (23-31); Chloride 106 mmol/L (98-107); Glucose 124 mg/dL (83-110); Potassium 3.9 mmol/L (3.5-5.1); Sodium 134 mmol/L (136-145)
[2021-02-17] MEDS: hydrALAZINE 20 MG/ML VIAL SLOW IVP PRN (04:38)
[2021-02-17] MEDS: Carvedilol 6.25 MG TAB PO SCH (08:25)
[2021-02-17] MEDS ORDERED: Sodium Chloride 0.9% 1,000 ML IV SCH (09:00)
[2021-02-17] MEDS ORDERED: Fentanyl 100 MCG/2 ML VIAL ONE (09:25)
[2021-02-17] MEDS ORDERED: PROPOFOL 200 MG/20 ML VIAL ONE (09:58)
[2021-02-17] MEDS: Losartan 25 MG TAB PO SCH (10:30)
[2021-02-17] MEDS: Morphine ER 15 MG TAB PO SCH (10:55)
[2021-02-17 14:05] VITALS: BP 148/67; TEMP 98.4
[2021-02-17 15:34] LABS: Hemoglobin 11.9 g/dL (14.0-18.0)
[2021-02-18] MEDS ORDERED: Clopidogrel Bisulfate 75 MG TAB PO SCH (09:00)
== END 2021-02-17 17:45 | disposition home or self-care (01) | DRG 375 ==
LOC: ERS 11:41 → INTOOBSV 18:38 → ONC 18:38 → OBSVTOIN 02-15 14:34
PROVIDERS: ADMIT Internal Medicine; ATTEND Internal Medicine
PROC: 0T9B70Z Drainage of Bladder with Drainage Device, Via Natural or Artificial Opening (ICD-10-PCS; 2021-02-16)
PROC: 0D758ZZ Dilation of Esophagus, Via Natural or Artificial Opening Endoscopic (ICD-10-PCS; principal; 2021-02-17)
DX: C20 Malignant neoplasm of rectum (principal); K51.30 Ulcerative (chronic) rectosigmoiditis without complications; K91.71 Accidental puncture and laceration of a digestive system organ or structure during a digestive system procedure; Z20.822 Contact with and (suspected) exposure to COVID-19; I16.0 Hypertensive urgency; I25.10 Atherosclerotic heart disease of native coronary artery without angina pectoris; E78.5 Hyperlipidemia, unspecified; I10 Essential (primary) hypertension; R35.0 Frequency of micturition; E11.65 Type 2 diabetes mellitus with hyperglycemia; E78.00 Pure hypercholesterolemia, unspecified; K21.00 Gastro-esophageal reflux disease with esophagitis, without bleeding; D63.0 Anemia in neoplastic disease; K44.9 Diaphragmatic hernia without obstruction or gangrene; R33.9 Retention of urine, unspecified; Y84.8 Other medical procedures as the cause of abnormal reaction of the patient, or of later complication, without mention of misadventure at the time of the procedure; Z79.899 Other long term (current) drug therapy; Z79.02 Long term (current) use of antithrombotics/antiplatelets; Z95.1 Presence of aortocoronary bypass graft; Z83.3 Family history of diabetes mellitus; Z82.3 Family history of stroke; Z87.891 Personal history of nicotine dependence; Z93.3 Colostomy status; Z79.82 Long term (current) use of aspirin
CPT/HCPCS: 36415; 36416; 51702; 74177; 80048; 80053; 81003; 81015; 83036; 83605; 83630; 83690; 83735; 85025; 85652; 86140; 87045; 87046; 87081; 87338; 87427; 87449; 96367; 96374; 96375; 96376; C9113; G0378; J0360; J1170; J1642; J2270; J2405; J2704; J3010; J3475; J7050; U0003; U0005